=== PATIENT | male | born 1940 | race Caucasian/White ===

== ENCOUNTER → 2016-04-30 | Outpatient (CLI) | payer MEDICARE, BC | END | disposition home or self-care (01) | LOC: LABWHC1 12:26 | PROVIDERS: ATTEND Physical Medicine & Rehabilitation | DX: M54.2 Cervicalgia (principal); M47.812 Spondylosis without myelopathy or radiculopathy, cervical region; R20.2 Paresthesia of skin; M70.62 Trochanteric bursitis, left hip; M75.41 Impingement syndrome of right shoulder; G56.01 Carpal tunnel syndrome, right upper limb; G56.02 Carpal tunnel syndrome, left upper limb; M19.012 Primary osteoarthritis, left shoulder; M19.011 Primary osteoarthritis, right shoulder; R60.0 Localized edema | CPT/HCPCS: 36415; 93005 ==

== ENCOUNTER → 2016-05-28 | Outpatient (CLI) | payer MEDICARE, BC ==
--- NOTE | 2016-05-28 11:57 | XR ---
EXAMINATION TYPE: XR chest 2V DATE OF EXAM: 05/28/2016 11:45 AM HISTORY: Hypertension I10. REFERENCE: Previous study dated 05/16/2015. FINDINGS: The lungs are overinflated. Heart size is normal. The lungs are clear. There is severe dege nerative change in the right shoulder. IMPRESSION: 1. COPD. 2. DEGENERATIVE CHANGE, RIGHT SHOULDER.
[2016-05-28 12:03] LABS: Basophils # (A) 0.1 k/uL (0-0.2); Basophils % (A) 1 %; CH 30.7; CHCM 33.4; Eosinophils # (A) 0.1 k/uL (0-0.7); Eosinophils % (A) 3 %; HCT 41.6 % (39.0-53.0); HDW 2.36; HGB 13.7 gm/dL (13.0-17.5); Luc # (Auto) 0.09; Luc % (Auto) 2; Lymphocytes # (A) 0.9 k/uL (1.0-4.8); Lymphocytes % (A) 18 %; MCH 30.6 pg (25.0-35.0); MCHC 33.1 g/dL (31.0-37.0); MCV 92.5 fL (80.0-100.0); Mean Platelet Volume 7.5; Monocytes # (A) 0.3 k/uL (0-1.0); Monocytes % (A) 6 %; Neutrophils # (A) 3.8 k/uL (1.3-7.7); Neutrophils % (A) 71 %; RDW 13.1 % (11.5-15.5); WBC 5.4 k/uL (3.8-10.6); WBC (Perox) 6.32
[2016-05-28 12:14] LABS: Potassium 4.6 mmol/L (3.5-5.1)
[2016-05-28 12:17] LABS: Partial Thromboplastin Time 23.7 sec (22.0-30.0); Prothrombin Time 10.2 sec (9.0-12.0)
== END | disposition home or self-care (01) ==
LOC: LABPAT 11:20
PROVIDERS: ATTEND Orthopaedic Surgery
DX: J44.9 Chronic obstructive pulmonary disease, unspecified (principal); Z01.812 Encounter for preprocedural laboratory examination; M19.012 Primary osteoarthritis, left shoulder; I10 Essential (primary) hypertension; Z79.01 Long term (current) use of anticoagulants
CPT/HCPCS: 71020; 80051; 85025; 85610; 85730

== ENCOUNTER 2016-06-05 10:37 | Inpatient (IN) | payer MEDICARE, BC ==
[2016-05-24 11:16] VITALS: BMI 29.9
--- NOTE | 2016-06-04 15:36 | HP ---
DATE OF ADMISSION: CHIEF COMPLAINT: Left shoulder pain. 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 He is having pain with use and at night. It limits his normal function and activities. He has been taking Advil along with using a fentanyl patch. PAST MEDICAL HISTORY: Significant for COPD, depression, hypercholesterolemia, hypertension, hypothyroidism, and arthritis. PAST SURGICAL HISTORY: Significant for carpal tunnel release and cataract surgery and left total hip arthroplasty. CURRENT MEDICATIONS: 1. Albuterol. 2. Atorvastatin. 3. Fentanyl patch. 4. Duloxetine. 5. Hydrochlorothiazide. 6. Levothyroxine. 7. Metoprolol. 8. Symbicort. He denies drug allergies. FAMILY HISTORY: Significant for cancer, heart disease and lung disease. SOCIAL HISTORY: Negative for current alcohol use. Sixteen-point review of systems otherwise reviewed and is noncontributory. On examination, the patient is approximately 6 foot 2, 246 pounds of endomorphic habitus. HEENT exam is nonfocal. Neck is supple. Active motion of the left shoulder, forward elevation 90 degrees, external rotation with arm at side 60 degrees, internal rotation to L5. Passively, I am able to forward elevate him to 140 degrees. He is tender about the anterior subacromial space and glenohumeral joint. He has moderate crepitus. Motor strength is 5-/5 for abduction and external rotation. Helms, Neer tests are positive. His distal neurovascular exam appears be intact in the left upper extremity. AP, axillary lateral, and scapular Y views of the left shoulder obtained in the office show severe glenohumeral joint osteoarthrosis with maintained humeral head to acromial distance. IMPRESSION: Left severe glenohumeral joint osteoarthrosis. RECOMMENDATIONS: I talked to the patient at length regarding his treatment options. At this point he is quite symptomatic and limited because of pain related to his osteoarthrosis. After thorough discussion, he opts to proceed with surgery. We will plan to proceed with left total shoulder arthroplasty. Risks and benefits are discussed at length in layman terms. The patient underwent preoperative medical evaluation by Dr. Farrar.
[~2016-06-05 10:37] MED LIST: ACETAMINOPHEN TAB 500 MG TAB PO ONE; DEXAMETHASONE SOD PHOSPHATE 10 MG/ML 1 ML VIAL IV ONE; LIDOCAINE 1% 20 ML VIAL (10MG/ML) FOR IV START INTRADERMA PRN; MELOXICAM 7.5 MG TAB PO ONE; MIDAZOLAM 2 MG/2 ML VIAL IV PRN; SCOPOLAMINE 1.5MG/72HR PATCH TRANSDERM ONE; TRANEXAMIC ACID 1,000 MG in SODIUM CHLORIDE 0.9% 100 ML IVPB ONE; fentaNYL (PF) 50 MCG/ML 20 ML VIAL IVP PRN
[2016-06-05] MEDS: LACTATED RINGERS 1,000 ML IV SCH (11:23)
[2016-06-05] MEDS ORDERED: ONDANSETRON 4 MG/2 ML VIAL IVP ONE (11:24)
[2016-06-05] MEDS ORDERED: fentaNYL (PF) 50 MCG/ML 2 ML AMP ONE (13:12)
[2016-06-05] MEDS ORDERED: MIDAZOLAM 2 MG/2 ML VIAL ONE (13:12)
[2016-06-05] MEDS ORDERED: TRANEXAMIC ACID 1,000 MG/10 ML VIAL ONE (13:12)
[2016-06-05] MEDS ORDERED: ROCURONIUM BROMIDE 10 MG/ML 10 ML VIAL IV ONE (13:12)
[2016-06-05] MEDS ORDERED: ePHEDrine 50 MG/ML 1 ML AMP ONE (13:12)
[2016-06-05] MEDS ORDERED: NEOSTIGMINE 1 MG/ML 10 ML VIAL ONE (13:12)
[2016-06-05] MEDS ORDERED: SODIUM CHLORIDE 0.9% 100 ML BAG ONE (13:12)
[2016-06-05] MEDS ORDERED: GLYCOPYRROLATE 0.2 MG/ML 2 ML VIAL ONE (13:12)
[2016-06-05] MEDS ORDERED: PHENYLEPHRINE-0.9% NACL SYG 1 MG/10 ML SYRINGE ONE (13:12)
[2016-06-05] MEDS ORDERED: SUCCINYLCHOLINE CHLORIDE 100 MG/5 ML SYR IV ONE (13:12)
[2016-06-05] MEDS ORDERED: PROPOFOL 10 MG/ML 20 ML VIAL IV ONE (13:12)
[2016-06-05] MEDS ORDERED: LIDOCAINE 1% INJ 10MG/ML (20 ML MDV) ONE (13:12)
[2016-06-05] MEDS: ceFAZolin 2 GM in SODIUM CHLORIDE 0.9% 100 ML IVPB ONE ×2 (13:27→13:32)
[2016-06-05] MEDS ORDERED: ceFAZolin 3,000 MG in SODIUM CHLORIDE 0.9% IRRIGATIO 3,000 ML IRRIGATION ONE (13:50)
[2016-06-05] MEDS ORDERED: LACTATED RINGERS 1,000 ML IV ONE (14:01)
[2016-06-05] MEDS ORDERED: SENNOSIDES-DOCUSATE SODIUM 1 EACH TAB PO PRN (15:35)
[2016-06-05] MEDS ORDERED: ONDANSETRON 4 MG/2 ML VIAL IVP PRN (15:35)
[2016-06-05] MEDS ORDERED: METHADONE 5 MG TAB PO PRN ×2 (15:42→15:50)
[2016-06-05] MEDS ORDERED: ACETAMINOPHEN TAB 325 MG TAB PO PRN (15:44)
--- NOTE | 2016-06-05 15:58 | P.OP ---
Date of Procedure: 06/05/16 Preoperative Diagnosis: Severe left glenohumeral joint osteoarthrosis Postoperative Diagnosis: Same Procedure(s) Performed: Left total shoulder arthroplasty Implants: [employer] Unite size 12 press-fit humeral stem, 52 mm +21 eccentric humeral head, 52 mm pegged glenoid Anesthesia: PALMIRA Surgeon: Smith Hammond Senior J2Ee Developer #1: Antonio Ricketts Estimated Blood Loss (ml): 100 Pathology: other (Humeral head) Condition: stable Disposition: PACU Indications for Procedure: The patient's a 76-year-old gentleman who presents with progressive left shoulder pain secondary to osteoarthrosis despite extensive conservative measures. A discussion of the risks and benefits of operative intervention versus continued conservative measures was made with the patient. He opted to proceed with surgery. Operative risks to include infection, neurovascular injury, development of blood clots, possible component loosening, possible dislocation need for subsequent procedures was discussed. Operative Findings: As below Description of Procedure: The patient was brought to the operating room, and after induction of general anesthesia was placed into a beachchair position. Bony prominences were appropriately padded. The left upper extremity was prepped and draped in a normal fashion. A deltopectoral incision was then made extending approximately 12 cm starting lateral to the coracoid process and the deltopectoral interval. The skin was incised sharply. Subcu changed tissues were divided sharply. Electrocautery was used for hemostasis. The cephalic vein was identified and bluntly dissected and retracted along with the deltoid. Subdeltoid and subacromial adhesions were bluntly dissected. A self-retaining retractor was placed. The upper one third of the pectoralis tendon was released with electrocautery to help with exposure. The clavipectoral fascia was opened and the conjoined tendon gently retracted medially. The biceps was identified and bicipital groove opened. A tenotomy was performed allowing the distal tendon to retract. The proximal tendon was resected. The rotator interval was opened to level of the glenoid. A lesser tuberosity osteotomy is performed with a small sagittal saw. The capsule was then opened and released off the humeral head and neck. This exposed the proximal humerus. Inferior osteophytes were resected at the level of the [place] cortical bone. The shoulder was gently dislocated. A starting hole was made in line with the bicipital groove and the humeral shaft. Sequential hand reaming of the canal was performed up to size 12. There was good distal fit the resection guide was then placed planning on 30 of retroversion. I planned on resection superiorly at the level the rotator cuff insertion. The cutting guide was pinned in place and the humeral neck cut was then made. The head was removed. It sized most appropriately at 52 x 21 mm. Attention was then paid towards preparing the glenoid. A Fukuda retractor was placed posteriorly and a glenoid neck retractor anteriorly. The labrum was then released from the 6:00 to 12 o'clock position. The biceps was released from the superior labrum. I felt there was adequate noted exposure at this point. A guidepin was placed into the central portion of the glenoid . The glenoid was then reamed down to a bleeding bony surface. The central peg hole was drilled. The glenoid sized most appropriately at 52 mm. The peripheral peg holes were drilled. The trial size 52 mm glenoid was inserted and was fully seated. There was good anterior to posterior and superior to inferior fit. The trial component was removed. The bony surface was cleaned and dried. Bone graft was placed around the central peg of the final implant. The peripheral holes were pressurized with cement and excess cement was removed. The 52 mm pegged glenoid was then inserted and was fully seated. It was held in place until the cement had sufficiently hardened. Attention was then paid towards preparing the proximal humerus. The appropriate broach was inserted in 30 of retroversion and was fully seated. There was good rotational stability and overall fit. The trial 52 mm x 21 mm eccentric head was placed. The shoulder was reduced. It was taken through range of motion. I felt that was stable in flexion and extension with internal and external rotation. I felt there was adequate moravian of soft tissue tension. The shoulder was gently dislocated. The trial components were then removed. #2 Ethibond was placed for moravian of the lesser tuberosity. The final size 12 stem was inserted in the same retroversion and was fully seated. Again there was good rotational stability. The eccentric 52 x 21 mm humeral head was placed and was gently impacted. The shoulder was gently reduced. Again it was taken through range of motion felt to be stable with adequate moravian of soft tissue tension. Pulsatile lavage was utilized. The rotator interval was closed with #2 Ethibond suture. The lesser tuberosity was reattached with the previously placed #2 Ethibond suture. The deltopectoral interval was closed with interrupted 2-0 Vicryl sutures and the subcutaneous tissues reapproximated interrupted 2-0 Vicryl sutures. The skin was reapproximated with 3-0 subcuticular strata fix suture. Skin tape and adhesive was applied. The patient was then awoken from general anesthesia and transferred to the recovery room in good condition. Blood loss was estimated at 100 mL's. No complications were incurred. Sponge and needle counts were correct at the end the case.
[2016-06-05] MEDS: HYDROmorphone 1 MG/ML 1 ML SYRINGE IVP PRN ×5 (16:00→16:21)
--- NOTE | 2016-06-05 16:18 | XR ---
EXAMINATION TYPE: XR shoulder limited LT DATE OF EXAM: 06/05/2016 4:08 PM COMPARISON: 12/27/2015 HISTORY: 76-year-old male postoperative evaluation TECHNIQUE: Single portable Grashey view FINDINGS: Image demonstrates left total shoulder arthroplasty. Alignment appears grossly anatomic. No periprost hetic fracture identified. There is soft tissue and intra-articular air related to recent operation. IMPRESSION: Uncomplicated postoperative appearance left total shoulder arthroplasty.
[2016-06-05] MEDS ORDERED: KETOROLAC 30 MG/ML 1 ML VIAL IVP ONE (16:26)
[2016-06-05] MEDS ORDERED: ACETAMINOPHEN IV (For NPO) 1,000 MG/100 ML VIAL IVPB ONE (16:32)
[2016-06-05] MEDS: HYDROmorphone 1 MG/ML 1 ML SYRINGE IVP ONE ×2 (16:43→16:49)
[2016-06-05] MEDS: ceFAZolin 2 GM in SODIUM CHLORIDE 0.9% 100 ML IVPB SCH (17:26)
[2016-06-05] MEDS: METHADONE 5 MG TAB PO PRN (21:58)
[2016-06-06] MEDS: ceFAZolin 2 GM in SODIUM CHLORIDE 0.9% 100 ML IVPB SCH (00:03)
[2016-06-06] MEDS: LACTATED RINGERS 1,000 ML IV SCH (02:44)
[2016-06-06] MEDS: METHADONE 5 MG TAB PO PRN (05:45)
[2016-06-06 08:10] LABS: Basophils % (A) 0 %; CH 30.8; CHCM 34.3; Eosinophils % (A) 0 %; HDW 2.35; HGB 11.6 gm/dL (13.0-17.5); Luc % (Auto) 1; Lymphocytes # (A) 1.1 k/uL (1.0-4.8); Lymphocytes % (A) 14 %; MCH 30.8 pg (25.0-35.0); MCHC 34.1 g/dL (31.0-37.0); MCV 90.3 fL (80.0-100.0); Mean Platelet Volume 6.9; Monocytes # (A) 0.6 k/uL (0-1.0); Monocytes % (A) 8 %; Neutrophils # (A) 6.4 k/uL (1.3-7.7); Neutrophils % (A) 77 %; RBC 3.76 m/uL (4.30-5.90); RDW 13.4 % (11.5-15.5); WBC 8.3 k/uL (3.8-10.6); WBC (Perox) 8.95
[2016-06-06 08:57] VITALS: BP 116/72; PULSE 70; RESP 15; TEMP 98
[2016-06-06] MEDS ORDERED: RIVAROXABAN 10 MG TAB PO SCH (09:00)
[2016-06-06] MEDS ORDERED: METHADONE 5 MG TAB PO SCH (13:00)
--- NOTE | 2016-06-06 14:36 | P.PN ---
Subjective Principal diagnosis: Status post left total shoulder arthroplasty Patient is seen today resting in his hospital bed, his family is present at bedside. Patient's very comfortable at this point, his pain is well- controlled. He denies any headaches, lightheadedness, chest pain or shortness of breath. Objective - Vital Signs Vital signs: Vital Signs Temp 98 F 06/06/16 07:00 Pulse 70 06/06/16 07:00 Resp 15 06/06/16 07:00 BP 116/72 06/06/16 07:00 Pulse Ox 99 06/06/16 07:00 Intake & Output 06/05/16 06/06/16 06/06/16 18:59 06:59 18:59 Intake Total 2151 1000 700 Output Total 400 200 300 Balance 1751 800 400 Weight 105.687 kg Intake: IV 2151 Intake, IV Titration 1000 Amount Lactated Ringers 1,000 ml 400 @ 50 mls/hr IV .Q20H [facility] Rx#:[id number] ceFAZolin 2 gm In Sodium 400 Chloride 0.9% 100 ml @ 100 mls/hr IVPB ONCE ONE Rx#:[id number] ceFAZolin 2 gm In Sodium 200 Chloride 0.9% 100 ml @ 100 mls/hr IVPB Q8HR [facility] Rx#:[id number] Oral 700 Output: Urine 300 200 300 Uretheral (Rogers) 200 300 Estimated Blood Loss 100 Other: Voiding Method Indwelling Catheter Indwelling Catheter - Exam Left upper extremity: Incision is clean, dry and intact. Sensory exam to light touch throughout the upper extremities intact. Patient is able to extend and flex the wrist with no difficulty. He also has motion the elbow. Radial pulses 2+. - Labs CBC & Chem 7: 06/06/16 07:33 Labs: Abnormal Lab Results - Last 24 Hours (Table) 06/06/16 Range/Units 07:33 RBC 3.76 L (4.30-5.90) m/uL Hgb 11.6 L (13.0-17.5) gm/dL Hct 34.0 L (39.0-53.0) % Assessment and Plan Plan: Assessment: 1. Postop day #1 status post left total shoulder arthroplasty Plan: 1. Pain control, will resume his home methadone 2. GI and DVT prophylaxis, he will utilize aspirin 325 mg twice a day 3. Daily dressing changes/ice and elevate 4. Utilize arm sling 5. Pendular exercises daily 6. Medical recommendations 7. Discharge planning: Patient will be discharged home today Time with Patient: Less than 30
--- NOTE | 2016-06-06 14:38 | P.DS ---
Providers Date of admission: 06/05/16 10:37 Expected date of discharge: 06/06/16 Attending physician: Smith Hammond Consults: 06/05/16 15:40 Consult Physician Routine Consulting Provider: Lora Steel Consult Reason/Comments: Medical Management Do you want consulting provider notified?: Yes [facility] Course: Date of admission: 06/05/2016 Date of discharge: 06/06/2016 Admission diagnosis: Status post left total shoulder arthroplasty Discharge diagnosis: Same Attending physician: Dr. Hammond Surgical procedures: Left total shoulder arthroplasty Brief history: Patient is a 76-year-old male with a history of progressive primary left shoulder osteoarthritis. At this point patient has failed conservative treatment measures and has opted to proceed with a elective left total shoulder arthroplasty. Hospital course: Details of patient's surgery can be found in operative report. Patient tolerated the procedure well and was subsequently transported to orthopedic floor. Patient's orthopeidc and medical care was provided daily. Patient had daily laboratory tests performed for evaluation of overall blood counts. Patient had daily physical therapy to include strengthening range of motion as well as education with walker ambulation. Patient was treated with Xarelto for their postoperative DVT prophylaxis during their inpatient stay. Patient was noted to have a relatively uneventful postoperative course. Patient reported satisfactory pain control with oral pain medications by postoperative day 0. Patient showed satisfactory progress with physical therapy. Patient moved steadily through the program and had no difficulty meeting the goals by postoperative day 1. Given patient's otherwise satisfactory course and having met physical therapy goals, plan is to discharge patient home on postoperative day 1. Discharge condition/disposition: Patient will be discharged home in stable condition. Discharge medications: Instructions are given on resumption of patient's normal daily medications per primary care recommendation, in addition patient will be prescribed Pepcid 20 mg, Colace 100 mg, aspirin 325 mg. Discharge instructions: 1. Wound care and infection precautions, keep incision dry and covered while showering, no lotions, creams, moisturizers. No soaking, tubs, pools, hottubs. Do not scrub over the incision. 2. Utilize arm sling for left upper extremity 3. Ice and elevate when necessary. Do not exceed 20 minutes per hour with ice pack. 4. Utilize compression sleeve until seen at first follow up appointment. 5. Visiting nursing care. 6. Home physical therapy. 7. Pain meds and anticoagulants per prescription. 8. Pain medication has potential to cause constipation. Increase oral fluid and fiber intake. Contact primary care provider if you have not had a bowel movement within 48 hours after discharge 9. No anti-inflammatory medication until discussed at first post operative visit, this including Motrin, Aleve, Mobic, Diclofenac. 10. Follow up in office at 2 weeks postop with Keo Ricketts PA-C 11. Follow up with your primary care doctor 7-10 days after discharge. 12. Contact [facility] with any questions, . Procedures: Left total shoulder arthroplasty Patient Condition at Discharge: Good Plan - Discharge Summary New Discharge Prescriptions: Aspirin 325 mg PO BID #60 tab Docusate [Colace] 100 mg PO DAILY #30 capsule Famotidine [Pepcid] 20 mg PO DAILY #30 tablet Discharge Medication List Albuterol Sulfate [Proair Hfa] 1 - 2 puff INHALATION RT-Q6H PRN 05/03/15 [ History] Atorvastatin [Lipitor] 10 mg PO HS 05/03/15 [History] Budesonide/Formoterol Fumarate [Symbicort 160-4.5 Mcg Inhaler] 1 puff INHALATION RT-BID 05/03/15 [History] Hydrochlorothiazide [Hydrodiuril] 25 mg PO DAILY 05/03/15 [History] Ipratropium-Albuterol Nebulize [Duoneb 0.5 mg-3 mg/3 ml Soln] 3 ml INHALATION RT -BID 05/03/15 [History] Levothyroxine Sodium [Synthroid] 175 mcg PO QAM 05/03/15 [History] Metoprolol Tartrate [Lopressor] 25 mg PO QAM 05/03/15 [History] Tamsulosin HCl [Flomax] 0.4 mg PO HS 05/03/15 [History] DULoxetine HCL [Cymbalta] 60 mg PO BID 05/24/16 [History] Finasteride [Proscar] 5 mg PO HS 05/24/16 [History] Methadone [Dolophine] 7.5 mg PO Q8HR 05/24/16 [History] Moexipril HCl [Univasc] 15 mg PO QAM 05/24/16 [History] Multivitamin [Men's Multi-Vitamin] 1 tab PO DAILY 05/24/16 [History] Naloxone HCl [Narcan] 4 mg NASAL DIRECTED PRN 05/24/16 [History] Polyethylene Glycol 3350 [Miralax] 17 gm PO DAILY 05/24/16 [History] Turmeric Root Extract [Turmeric] 500 mg PO DAILY 06/05/16 [History] Aspirin 325 mg PO BID #60 tab 06/06/16 [Rx] Docusate [Colace] 100 mg PO DAILY #30 capsule 06/06/16 [Rx] Famotidine [Pepcid] 20 mg PO DAILY #30 tablet 06/06/16 [Rx] Follow up Appointment(s)/Referral(s): [facility], [NON-STAFF] - Antonio Ricketts PAC [PHYSICIAN RESIN REMOVER] - 06/20/16 2:10 pm Activity/Diet/Wound Care/Special Instructions: Orthopedic Discharge Instructions: 1. Wound care and infection precautions, keep incision dry and covered while showering, no lotions, creams, moisturizers. No soaking, pools, hot tubs. Do not scrub over incision. 2. Utilize arm sling for left upper extremity 3. Ice and elevate when necessary. Do not exceed 20 minutes per hour with ice pack. 4. Utilize compression sleeve until seen at first follow up appointment. 5. Visiting nursing care. 6. Home physical therapy. 7. Pain meds and anticoagulants per prescription. 8. Pain medication has potential to cause constipation. Increase oral fluid and fiber intake. Contact primary care provider if you have not had a bowel movement within 48 hours after discharge. 9. No anti-inflammatory medication until discussed at first post operative visit, this including Motrin, Aleve, Mobic, Diclofenac. 10. Follow up in office at 2 weeks postop with Keo Ricketts PA-C 11. Follow up with your primary care doctor 7-10 days after discharge. 12. Contact [facility] with any questions, . Discharge Disposition: HOME WITH HOME HEALTH SERVICES
--- NOTE | 2016-06-06 21:07 | CONS ---
DATE OF CONSULTATION: REASON FOR CONSULTATION: Management of recommendations regarding antihypertensive medications. Recommendations regarding antihypertensive medications and management of other medical problems postoperative complications. Patient is a 76-year-old admitted for a left shoulder arthroplasty, patient successfully underwent surgery. The patient successfully underwent left shoulder arthroplasty. The patient denied any fever or chills. Patient denied any nausea, vomiting, abdominal pain. Patient's blood pressure was a bit low. This is normal expected postoperative response of the blood pressure. I do not have enough time to see if he is on the appropriate blood pressure medications or not. Because of that reason, I am recommending that patient should check his blood pressure twice a day, appropriate way of checking the blood pressure counseled to the patient and taken to the primary doctor, I am not changing any of his medications. ROS: all other systems were reviewed and are negative. Home medications include: 1. Tamsulosin. 2. Polyethylene glycol. 3. ( ). 4. ( ). 5. Metoprolol. 6. Methadone. 7. Levothyroxine. 8. Hydrochlorothiazide. 9. Finasteride. 10. Duloxetine. 11. Budesonide. 12. Formoterol. 13. Atorvastatin. 14. Albuterol. 15. Famotidine. 16. Docusate. 17. Aspirin. PAST MEDICAL HISTORY: Significant for COPD, hyperlipidemia, hypertension, osteoarthritis, prostate disorder, hypothyroidism, Appendectomy. Joint replacement surgery. Tonsillectomy, anxiety. Depression. SOCIAL HISTORY: Quit smoking in 2010. Denied any alcohol abuse or drug abuse. FAMILY HISTORY: Congestive heart failure, diabetes mellitus and lung cancer. PHYSICAL EXAMINATION: VITAL SIGNS: Temperature 98.0, pulse of 70, respiratory rate 15. Blood pressure is 116/72, saturating at 99% on 2 L O2 by nasal cannula. GENERAL: The patient is alert and oriented x3, not in any acute distress. Well developed, well nourished. HEENT: Pupils are round and equally reacting to light. EOMI. No scleral icterus. No conjunctival pallor. Normocephalic, atraumatic. No pharyngeal erythema. No thyromegaly. CARDIOVASCULAR: S1 and S2 present. No murmurs, rubs, or gallops. PULMONARY: Chest is clear to auscultation, no wheezing or crackles. ABDOMEN: Soft, nontender, nondistended, normoactive bowel sounds. No palpable organomegaly. MUSCULOSKELETAL: Left shoulder arthroplasty, postsurgical packed. EXTREMITIES: No cyanosis, clubbing, or pedal edema. NEUROLOGICAL: Gross neurological examination did not reveal any focal deficits. SKIN: No rashes. LABORATORY DATA: CBC hemoglobin of 11.6. ASSESSMENT AND PLAN: 1. Postoperative day 0, left shoulder arthroplasty. 2. Hypertension. 3. Hyperlipidemia. 4. Chronic obstructive pulmonary disease without any acute exacerbation. Will not need any systemic steroids. 5. Gastroesophageal reflux disease. 6. Osteoarthritis. 7. Hypothyroidism. No changes are made in medications are being made. Discharge medication reconciliation was reviewed. Patient is okay to be discharged from my perspective. No changes. Because of above-mentioned reasons, I am not making any changes. Thank you for letting us participate in this patient's care. We will sign off at this point in time. CK
== END 2016-06-06 16:05 | disposition home health service (06) | DRG 483 ==
LOC: 2ORMAIN 10:37 → 3SUR 15:38
PROVIDERS: ADMIT Orthopaedic Surgery; ATTEND Orthopaedic Surgery
PROC: 0RRK0JZ Replacement of Left Shoulder Joint with Synthetic Substitute, Open Approach (ICD-10-PCS; principal; 2016-06-05 12:50)
DX: M19.012 Primary osteoarthritis, left shoulder (principal); J44.9 Chronic obstructive pulmonary disease, unspecified; I10 Essential (primary) hypertension; E03.9 Hypothyroidism, unspecified; E78.00 Pure hypercholesterolemia, unspecified; E78.5 Hyperlipidemia, unspecified; K21.9 Gastro-esophageal reflux disease without esophagitis; Z82.49 Family history of ischemic heart disease and other diseases of the circulatory system; Z87.891 Personal history of nicotine dependence; Z96.642 Presence of left artificial hip joint; Z83.3 Family history of diabetes mellitus; F41.9 Anxiety disorder, unspecified; F32.9 Major depressive disorder, single episode, unspecified; Z79.82 Long term (current) use of aspirin; Z79.891 Long term (current) use of opiate analgesic; Z79.899 Other long term (current) drug therapy; N42.9 Disorder of prostate, unspecified
CPT/HCPCS: 85025; 88305; 88311

== ENCOUNTER → 2017-01-11 | Outpatient (CLI) | payer MEDICARE, BC | END | disposition home or self-care (01) | LOC: LABPAT 12:54 | PROVIDERS: ATTEND Orthopaedic Surgery | DX: Z01.812 Encounter for preprocedural laboratory examination (principal) | CPT/HCPCS: 87070 ==

== ENCOUNTER 2017-01-22 08:00 | Inpatient (IN) | payer MEDICARE, BC ==
--- NOTE | 2017-01-21 09:55 | HP ---
HISTORY AND PHYSICAL CHIEF COMPLAINT: Right shoulder pain. HISTORY OF PRESENT ILLNESS: The patient is a 76-year-old, right-hand dominant, retired male who presents with progressive right shoulder pain for the past several years. It has worsened recently. He is having pain with any attempted use. He notes limited motion. He had a previous injection with only partial temporary relief. PAST MEDICAL HISTORY: Significant for arthritis, COPD, depression, hypercholesterolemia, hypertension, and hypothyroidism. PAST SURGICAL HISTORY: Significant for carpal tunnel surgery, cataract removal, previous hip surgery, tonsillectomy, and left total shoulder arthroplasty. CURRENT MEDICATIONS: 1. Albuterol. 2. Fentanyl patch. 3. Atorvastatin. 4. Hydrochlorothiazide. 5. Levothyroxine. 6. Metoprolol. 7. Symbicort. ALLERGIES: He denies drug allergies. FAMILY HISTORY: Significant for cancer, heart disease, hypertension. SOCIAL HISTORY: Significant for previous tobacco use. REVIEW OF SYSTEMS: Sixteen point review of systems otherwise reviewed and is noncontributory. PHYSICAL EXAMINATION: On examination, the patient is approximately 6 feet 2 inches, 240 pounds of endomorphic habitus. HEENT exam is nonfocal. Neck is supple. Active range of motion of the right shoulder. Forward elevation 105 degrees, external rotation with arm to side 50 degrees and internal rotation to L4. Motor strength is 5/5 for abduction and external rotation. Impingement, Neer and Speed tests are positive. His distal neurovascular exam appears intact in the right upper extremity. X-rays to include AP and scapular outlet views of the right shoulder show severe glenohumeral joint osteoarthrosis with maintained humeral head to acromial distance. IMPRESSION: 1. Right severe glenohumeral joint osteoarthritis. 2. History of chronic obstructive pulmonary disease. RECOMMENDATIONS: I talked to the patient at length regarding his treatment options. At this point, he is having persistent significant pain related to his osteoarthrosis that limits him. After thorough discussion, he opts to proceed with surgery. We will plan to proceed with right total shoulder arthroplasty. Risks and benefits were discussed at length in layman's terms. We will institute DVT prophylaxis postoperatively. MMODL / IJN: [id number] /
[~2017-01-22 08:00] MED LIST changes: -LIDOCAINE 1% 20 ML VIAL (10MG/ML) FOR IV START INTRADERMA PRN; +ONDANSETRON 4 MG/2 ML VIAL IVP ONE; -SCOPOLAMINE 1.5MG/72HR PATCH TRANSDERM ONE; +ceFAZolin IN SWFI 2 GM/20 ML SYRINGE IVP ONE; -fentaNYL (PF) 50 MCG/ML 20 ML VIAL IVP PRN
[2017-01-22] MEDS: LACTATED RINGERS 1,000 ML IV SCH ×3 (11:42→19:22)
[2017-01-22] MEDS ORDERED: LIDOCAINE 1% 20 ML VIAL (10MG/ML) FOR IV START INTRADERMA ONE (11:44)
[2017-01-22] MEDS ORDERED: ceFAZolin 3,000 MG in SODIUM CHLORIDE 0.9% IRRIGATIO 3,000 ML IRRIGATION ONE (14:03)
[2017-01-22] MEDS ORDERED: LACTATED RINGERS 1,000 ML IV ONE (15:14)
[2017-01-22] MEDS ORDERED: ONDANSETRON 4 MG/2 ML VIAL IVP PRN (15:22)
[2017-01-22] MEDS ORDERED: SENNOSIDES-DOCUSATE SODIUM 1 EACH TAB PO PRN (15:22)
[2017-01-22] MEDS ORDERED: HYDROmorphone 0.5 MG/0.5 ML SYRINGE IVP PRN ×2 (15:22)
[2017-01-22] MEDS ORDERED: METHADONE 5 MG TAB PO PRN ×2 (15:31)
--- NOTE | 2017-01-22 15:46 | P.OP ---
Date of Procedure: 01/22/17 Preoperative Diagnosis: Right severe glenoid joint osteoarthrosis Postoperative Diagnosis: Same Procedure(s) Performed: Right total shoulder arthroplasty Implants: [employer] size 12 press-fit humeral stem, 52 mm +18 eccentric humeral head, 52 mm pegged cemented glenoid component. Anesthesia: JERSONA Surgeon: Smith Hammond Sketch Artist #1: Antonio Ricketts Estimated Blood Loss (ml): 350 Pathology: other (Humeral head) Condition: stable Disposition: PACU Indications for Procedure: The patient's 76-year-old male who presents with progressive right shoulder pain secondary to osteoarthrosis despite extensive conservative measures. A discussion of the risks and benefits of operative intervention versus continued conservative measures was made with the patient. He opted to proceed with surgery. Operative risks to include infection, neurovascular injury, development of blood clots, possible dislocation, possible component loosening and need for subsequent procedures was discussed. Informed consent was obtained. Operative Findings: As below Description of Procedure: The patient was brought to the operating room, and after induction of general anesthesia was placed in the beachchair position. Bony prominences were appropriately padded. The right upper extremity was prepped and draped in normal fashion. A deltopectoral incision was made just lateral to the coracoid process extending approximately 12 cm. The skin was incised sharply. Subcu tissues were divided bluntly. Electrocautery was used for hemostasis. The deltopectoral interval was identified and the cephalic vein gently retracted laterally with the deltoid. Subdeltoid adhesions were bluntly dissected. A self-retaining retractor was placed. The upper one third of the pectoralis major tendon was released to help facilitate exposure. The clavipectoral fascia was opened and the conjoined tendon gently retracted medially. The bicipital groove was identified and biceps was then removed. The rotator interval was opened to the level the glenoid. The biceps was tenotomized and allowed to retract distally. The lesser tuberosity was osteotomized with a sagittal. This was tagged with #2 Ethibond suture. The inferior capsule was dissected directly off the neck under direct visualization sharply. The inferior osteophyte was exposed and removed with a rongeur. The head was then gently dislocated. A starting hole was made in line with the humeral shaft and the bicipital groove. Hand reaming is then performed up to a size 12 concrete handler. Good distal fit and chatter was noted. The cutting guide was then placed. Upon at 30 of retroversion. I planned on resection exiting superiorly at the level of the rotator cuff insertion. The cutting block was pinned in place. The humeral head cut was made and the bone removed one fragment. The remaining inferior osteophytes were removed flush with the united auburn cortical bone. Attention was then paid towards preparing the glenoid. A retractor was placed posteriorly and anteriorly. The labral tissue was released from the 12:00 to 6 o'clock position anteriorly. The remaining biceps was removed from the superior labrum. The posterior labrum was elevated as well. I was able to obtain good exposure at this point. I felt size 52 was most appropriate. A guidepin was placed in the central portion of the glenoid. A 52 mm reamer was used taking this down to a bleeding bony surface. A central peg hole was drilled. The peripheral peg holes were then drilled with the appropriate guide. There was good bony containment. A trial size 52 mm glenoid was placed and was fully seated. There is good anterior to posterior and superior to inferior fit. The trial component was removed. The bony surface was prepared with pulsatile lavage and dried. The peripheral peg holes were filled with cement and pressurized. Excess cement was removed. The central peg hole was bone grafted and the implant inserted and impacted. This was held in position until the cement had sufficiently hardened. Attention was then paid towards preparing the proximal humerus. The appropriate broach was placed in 30 of retroversion and was fully seated. The trial component was inserted in the same orientation and was fully seated. There was good rotational stability. A 52 mm +18 eccentric trial head was placed in the appropriate orientation. The shoulder was gently reduced. It was taken through range of motion. I good stability in flexion and extension with internal and external rotation. There was good stability anterior to posterior as well. The shoulder was gently dislocated. The trial components were removed. A #2 Ethibond sutures placed laterally for reattachment of the lesser tuberosity. The final size 12 press-fit humeral stem was inserted in 30 of retroversion and was fully seated. Again there was good rotational stability. A 52 mm +18 humeral head was placed in the appropriate orientation and was gently impacted. The shoulder was gently reduced. Again it was taken through range of motion and felt to be stable in flexion and extension with internal and external rotation. Again there was adequate buddhism of soft tissue tension. Pulsatile lavage was again utilized. The lesser tuberosity was reattached to its united auburn position with #2 Ethibond suture. The rotator interval was closed with running #2 Ethibond suture. The deltopectoral interval was closed with interrupted 2-0 Vicryl sutures. The subcu tissues reapproximated in a similar fashion. The skin was reapproximated with 3-0 subcuticular Prolene suture. Steri-Strips were applied. A sterile dressing was applied in addition to a sling. Patient was awoken from general anesthesia and transferred to recovery room in good condition. Blood loss was estimated at 350 mL. No complications were incurred. Sponge and needle counts were correct at the end the case.
[2017-01-22] MEDS: HYDROmorphone 0.5 MG/0.5 ML SYRINGE IVP PRN ×4 (16:06→16:28)
--- NOTE | 2017-01-22 16:17 | XR ---
Right shoulder HISTORY: Postop shoulder arthroplasty Single frontal view of the right shoulder. Patient is status post right shoulder arthroplasty. There is anatomic alignment. Lucency in the soft tissues compatible with postop state. Small ossific densit y noted along the proximal right humerus medially, surgical likely is postoperative. IMPRESSION: Orthopedic follow-up.
[2017-01-22] MEDS ORDERED: MIDAZOLAM 2 MG/2 ML VIAL IV ONE (16:56)
[2017-01-22 17:09] VITALS: RESP 16
[2017-01-22 19:40] VITALS: BMI 28.8
[2017-01-22] MEDS: SYMBICORT 160-4.5 MCG INHALER INHALATION SCH (20:55)
[2017-01-22] MEDS: IPRATROPIUM-ALBUTEROL 3 ML NEB INHALATION SCH (20:56)
[2017-01-22] MEDS ORDERED: TAMSULOSIN 0.4 MG CAP.ER.24H PO SCH (21:00)
[2017-01-22] MEDS ORDERED: ATORVASTATIN 10 MG TAB PO SCH (21:00)
[2017-01-22] MEDS ORDERED: FINASTERIDE 5 MG TAB PO SCH (21:00)
--- NOTE | 2017-01-22 21:25 | CONS ---
CONSULTATION DATE OF CONSULTATION: January 22, 2017 REASON FOR CONSULTATION: Medical management requested by Dr. Hammond. CONSULTATION: Very pleasant 76-year-old patient of Dr. Farrar who has undergone right shoulder arthroplasty. Some pain is present. No nausea or vomiting. No chest pain. is at the bedside. Chronic stable medical conditions include COPD, hypertension, hyperlipidemia. On home oxygen 2 L. Patient does follow up for his pain with Dr. Cooley from [facility]. Patient also chronic stable medical conditions include BPH and hypothyroid. Denies any cardiac history. REVIEW OF SYSTEMS: CONSTITUTIONAL: None. HEENT none. Respiratory baseline some shortness of breath. Cardiovascular none. Gastrointestinal none. Genitourinary none. Musculoskeletal: Arthritic pain in different joints. Dermatological and hematologic, lymphatic none. Psychiatry none. Neurological none. Musculoskeletal also got pain in the lower back. PAST MEDICAL HISTORY: Of COPD, hypertension, hyperlipidemia, osteoarthritis including the lower back, chronic home oxygen 2 L, BPH, hypothyroid. PAST SURGICAL HISTORY: Adenoidectomy, appendectomy, total left shoulder, total left hip, bilateral carpal tunnel, bilateral cataract. Past psych history of depression, anxiety. SOCIAL HISTORY: The patient smoked about 50 cigars a week with pipe for close to 40 years, stopped in 2010, Alcohol none. . FAMILY HISTORY: Congestive heart failure and diabetes. HOME MEDICATIONS: Turmeric 5 mg p.o. daily, Flomax 0.4 mg p.o. q.h.s., MiraLAX 17 g p.o. daily, Narcan 4 mg, p.r.n. medications multivitamin 1 tab p.o. daily. Univasc 15 mg p.o. daily Lopressor 25 mg p.o. daily. Methadone 7.5 mg at 7:00 am 3:00 pm 11:00 pm, Synthroid 175 mcg p.o. daily DuoNeb b.i.d., hydrochlorothiazide 12.5 p.o. daily, Proscar 5 mg p.o. q.h.s., Colace 100 mg p.o. daily, Cymbalta 60 mg p.o. b.i.d. Symbicort 160/4.5, 1 puff b.i.d. Lipitor 100 mg q.h.s. ProAir 1-2 puffs q.6h p.r.n. ALLERGIES: None. PHYSICAL EXAMINATION: Vital signs on exam, temperature 98.3, pulse 89, respiratory rate 12, blood pressure 140/60, pulse 98% on 2 L. General appearance sitting up comfortable. Eyes pupils are equal. Conjunctivae normal. HEENT: Oral cavity normal. Neck JVD not raised. Mass not palpable. Respiratory effort normal. Lungs decreased breath sounds. Cardiovascular first and second sounds normal. No edema. ABDOMEN: Soft, nontender. Liver and spleen not palpable. Lymphatic no lymph nodes palpable in neck. Psychiatry alert and oriented times three. Mood and affect normal. Musculoskeletal has got a dressing of the right shoulder. Evidence of osteoarthritis especially in the hands. INVESTIGATIONS: None. ASSESSMENT: 1. Right shoulder total arthroplasty. 2. Chronic obstructive pulmonary disease in an ex-smoker. 3. Essential hypertension. 4. Hyperlipidemia. 5. Primary osteoarthritis of the joints. 6. Chronic hypoxic respiratory failure underlying chronic obstructive pulmonary disease. 7. Benign prostatic hypertrophy. 8. Hypothyroidism. PLAN: Home medications are resumed. Pain control per Dr. Hammond. Patient's home dose of methadone will be resumed as he takes it. This was discussed with the patient and . Questions were answered. Venodyne boots for DVT, Antiembolism hose for DVT prophylaxis. Pneumatic compression. Care was discussed the patient with . Questions were answered. Thank you Dr. Hammond. Copy dictation to Dr. Farrar. MAY / JESSICA: [id number] /
[2017-01-22] MEDS: LEVOTHYROXINE 100 MCG TAB PO SCH (21:50)
[2017-01-22] MEDS: LEVOTHYROXINE 75 MCG TAB PO SCH (21:50)
[2017-01-22] MEDS: METOPROLOL TARTRATE 25 MG TAB PO SCH (21:50)
[2017-01-22] MEDS: METHADONE 5 MG TAB PO SCH (22:23)
[2017-01-22] MEDS: ceFAZolin IN SWFI 2 GM/20 ML SYRINGE IVP SCH (22:23)
[2017-01-22] MEDS: DULoxetine HCL 60 MG CAPSULE.DR PO SCH (22:23)
[2017-01-23] MEDS: LEVOTHYROXINE 100 MCG TAB PO SCH (06:09)
[2017-01-23] MEDS: LEVOTHYROXINE 75 MCG TAB PO SCH (06:09)
[2017-01-23] MEDS: ceFAZolin IN SWFI 2 GM/20 ML SYRINGE IVP SCH (06:34)
[2017-01-23 07:17] LABS: Basophils % (A) 0 %; CHCM 32.9; Eosinophils % (A) 0 %; HCT 34.7 % (39.0-53.0); HDW 2.35; HGB 11.2 gm/dL (13.0-17.5); Luc # (Auto) 0.13; Luc % (Auto) 2; Lymphocytes # (A) 1.1 k/uL (1.0-4.8); Lymphocytes % (A) 15 %; MCH 29.5 pg (25.0-35.0); MCHC 32.2 g/dL (31.0-37.0); MCV 91.5 fL (80.0-100.0); Mean Platelet Volume 7.2; Monocytes # (A) 0.5 k/uL (0-1.0); Monocytes % (A) 6 %; Neutrophils # (A) 5.6 k/uL (1.3-7.7); Neutrophils % (A) 76 %; RBC 3.79 m/uL (4.30-5.90); WBC 7.4 k/uL (3.8-10.6); WBC (Perox) 7.53
[2017-01-23] MEDS: METHADONE 5 MG TAB PO SCH (07:19)
[2017-01-23] MEDS: SYMBICORT 160-4.5 MCG INHALER INHALATION SCH (08:20)
[2017-01-23] MEDS: IPRATROPIUM-ALBUTEROL 3 ML NEB INHALATION SCH (08:20)
[2017-01-23] MEDS ORDERED: TAMSULOSIN 0.4 MG CAP.ER.24H PO SCH (08:30)
--- NOTE | 2017-01-23 08:38 | P.ONQ ---
Anesthesiology Proc Note - PNB - Peripheral Nerve Block Performed Right Interscalene Single Time Out Performed: Yes Procedure Start Time: 17:49 Procedure Stop Time: 17:55 Indication: Acute Post-Operative Pain, Requested by physician Sedation Type: Sedate with meaningful contact maintained Preparation: Sterile Prep Needle Size: 50mm (2") Needle Gauge: 21 Technique: Ultrasound (ropi .5% 20cc and xylo 2% 15cc) Blood Aspirated: No Pain Paresthesia on Injection Noted: No Resistance on Injection: Normal Events: Uneventful and Well Tolerated
[2017-01-23] MEDS ORDERED: HYDROCHLOROTHIAZIDE 12.5 MG CAP PO SCH (09:00)
[2017-01-23] MEDS ORDERED: FINASTERIDE 5 MG TAB PO SCH (09:00)
[2017-01-23] MEDS ORDERED: LISINOPRIL 20 MG TAB PO SCH (09:00)
[2017-01-23] MEDS ORDERED: POLYETHYLENE GLYCOL 3350 17 GM POWD.PACK PO SCH (09:00)
[2017-01-23] MEDS ORDERED: ATORVASTATIN 10 MG TAB PO SCH (09:00)
[2017-01-23] MEDS ORDERED: traMADol 50 MG TAB PO PRN (09:47)
[2017-01-23] MEDS: DULoxetine HCL 60 MG CAPSULE.DR PO SCH (10:45)
[2017-01-23] MEDS: METOPROLOL TARTRATE 25 MG TAB PO SCH (10:46)
--- NOTE | 2017-01-23 11:45 | P.PN ---
Subjective Progress Note Date: 01/23/17 Principal diagnosis: Status post right total shoulder arthroplasty Patient seen today resting in his hospital bed, he appears comfortable. He he denies any headaches, lightheadedness, chest pain or shortness of breath. Objective - Vital Signs Vital signs: Vital Signs Temp 98.4 F 01/23/17 08:00 Pulse 80 01/23/17 08:31 Resp 16 01/23/17 08:00 BP 124/58 01/23/17 08:00 Pulse Ox 98 01/23/17 08:00 Intake & Output 01/22/17 01/23/17 01/23/17 18:59 06:59 18:59 Intake Total 2256 440 150 Output Total 550 600 300 Balance 1706 -160 -150 Weight 101.605 kg Intake: IV 2006 440 LR 440 Oral 250 150 Output: Urine 200 600 300 Uretheral (Rogers) 600 300 Estimated Blood Loss 350 Other: Voiding Method Indwelling Catheter - Exam Right upper extremity: Incision is clean, dry, and intact. There is minimal soft tissue swelling and ecchymosis surrounding the medial and lateral aspects of the incision. Calf is soft, no tenderness with palpation. Patient's able to wiggle all the fingers, flexion and extension at the wrist are intact.. Sensory exam to light touch throughout the extremity is intact, radial pulses 2+ - Labs CBC & Chem 7: 01/23/17 06:46 Labs: Abnormal Lab Results - Last 24 Hours (Table) 01/23/17 Range/Units 06:46 RBC 3.79 L (4.30-5.90) m/uL Hgb 11.2 L (13.0-17.5) gm/dL Hct 34.7 L (39.0-53.0) % Assessment and Plan Plan: Assessment: 1. Postop day 1 status post right total shoulder arthroplasty Plan: 1. Pain control, continue supportive oral medication 2. Utilize arm sling, and pendular exercises 3. GI and DVT prophylaxis, continue Lovenox during inpatient stay 4. Medical recommendations 5. Discharge planning: Patient may be discharged home today Time with Patient: Less than 30
[2017-01-23 15:28] VITALS: BP 124/58; PULSE 79; TEMP 98.4
--- NOTE | 2017-01-23 18:08 | PN ---
PROGRESS NOTE PRESENTING COMPLAINT: Right shoulder surgery. INTERVAL HISTORY: The patient is status post right shoulder surgery. Some pain is present. Breathing is stable. Sitting up, comfortable. Tolerated his breakfast. Looking forward to going home. REVIEW OF SYSTEMS: Done for constitutional, cardiovascular, GI, pulmonary; relevant findings as above. CURRENT MEDICATIONS: Reviewed. PHYSICAL EXAMINATION: Temperature 98.4, pulse 75, respiration 15, blood pressure 124/58, pulse ox 98% on 2 L. GENERAL APPEARANCE: Sitting up, comfortable. LUNGS: Decreased breath sounds. CARDIOVASCULAR: First and second sounds normal. No edema. ABDOMEN: Soft, nontender. Liver and spleen not palpable. MUSCULOSKELETAL: Right shoulder in a dressing. INVESTIGATIONS: White count 7.4, hemoglobin 11.2. ASSESSMENT: 1. Right shoulder total arthroplasty. 2. Chronic obstructive pulmonary disease in an ex-smoker. 3. Essential hypertension. 4. Hyperlipidemia. 5. Primary osteoarthritis of the joints. 6. Chronic hypoxic respiratory failure from underlying chronic obstructive pulmonary disease. 7. Benign prostatic hypertrophy. 8. Hypothyroidism. 9. Mild leukocytosis, likely reactive; clinically has no evidence of infection. PLAN: Care was discussed with the patient and his . They are very keen to go home. Medications to continue. MMODL / IJN: [id number] /
== END 2017-01-23 15:55 | disposition home health service (06) | DRG 483 ==
LOC: 2ORMAIN 10:20 → 3SUR 15:20
PROVIDERS: ADMIT Orthopaedic Surgery; ATTEND Orthopaedic Surgery
PROC: 0RRJ0JZ Replacement of Right Shoulder Joint with Synthetic Substitute, Open Approach (ICD-10-PCS; principal; 2017-01-22 08:00)
DX: M19.019 Primary osteoarthritis, unspecified shoulder (principal); J96.11 Chronic respiratory failure with hypoxia; Z99.81 Dependence on supplemental oxygen; J44.9 Chronic obstructive pulmonary disease, unspecified; I10 Essential (primary) hypertension; E03.9 Hypothyroidism, unspecified; D72.829 Elevated white blood cell count, unspecified; E78.00 Pure hypercholesterolemia, unspecified; N40.0 Benign prostatic hyperplasia without lower urinary tract symptoms; Z79.899 Other long term (current) drug therapy; Z82.49 Family history of ischemic heart disease and other diseases of the circulatory system; Z83.3 Family history of diabetes mellitus; Z87.891 Personal history of nicotine dependence; Z79.891 Long term (current) use of opiate analgesic
CPT/HCPCS: 64415; 85025; 88300; 94640; 94760

== ENCOUNTER → 2017-08-16 | Outpatient (CLI) | payer MEDICARE, BC ==
--- NOTE | 2017-08-16 09:57 | US ---
EXAMINATION TYPE: US abdomen complete DATE OF EXAM: 08/16/2017 COMPARISON: NONE CLINICAL HISTORY: R10.13 epigastric pain. Epigastric pain, NPO EXAM MEASUREMENTS: Liver Length: 16.8 cm Gallbladder Wall: 0.3 cm CHD: 0.4 cm Spleen: 10.1 cm Right Kidney: 9.4 x 6.4 x 5.9 cm Left Kidney: 9.9 x 5.5 x 5.0 cm Limited visualization due to overlying bowel gas Pancreas: Obscured by bowel gas Liver: Left lobe of liver not visualized due to bowel gas Gallbladder: Multiple mobile echogenic foci seen. GB wall appears upper limits of normal. GB appea rs enlarged. Evidence for sonographic Stoner's sign: neg CBD: Obscured by overlying bowel gas and stone shadow Spleen: wnl Right Kidney: wnl Left Kidney: wnl Upper IVC: Obscured by overlying bowel gas Abd Aorta: Prox and mid obscured by overlying bowel gas. Distal portion visualized. The intrahepatic portion of the IVC and proximal abdominal aorta are within normal limits. Common alexnadro e duct is unremarkable. The spleen is unremarkable. Kidneys are symmetric and free of hydronephrosis . No renal lesions are seen. IMPRESSION: Although there is no common bile duct dilation and sonographic Stoner sign is negative th e gallbladder is enlarged containing multiple gallstones, biliary sludge, and gallbladder wall promin ence. Findings are concerning for chronic cholecystitis and correlation with serum laboratory values is recommended.
== END | disposition home or self-care (01) ==
LOC: RADUSMAIN 08:37
PROVIDERS: ATTEND Family Medicine
DX: R10.13 Epigastric pain (principal)
CPT/HCPCS: 76700

== ENCOUNTER 2017-09-12 07:35 | Day surgery (SDC) | payer MEDICARE, BC ==
[2017-09-06 15:25] VITALS: BMI 28.2
[~2017-09-12 07:35] MED LIST changes: -ACETAMINOPHEN TAB 500 MG TAB PO ONE; +HEPARIN SODIUM,PORCINE 5,000 UNIT/ML 1 ML VIAL SQ ONE; +LACTATED RINGERS 1,000 ML IV SCH; -MELOXICAM 7.5 MG TAB PO ONE; -MIDAZOLAM 2 MG/2 ML VIAL IV PRN; -TRANEXAMIC ACID 1,000 MG in SODIUM CHLORIDE 0.9% 100 ML IVPB ONE
--- NOTE | 2017-09-12 08:48 | P.GSHP ---
History of Present Illness H&P Date: 09/12/17 Chief Complaint: Right upper quadrant pain This is a 69-year-old male who's had complete the right quadrant pain. Patient presents today for laparoscopic cholecystectomy. His recent ultrasound shows evidence of cholelithiasis. Past Medical History Past Medical History: COPD, Hyperlipidemia, Hypertension, Osteoarthritis (OA), Prostate Disorder, Thyroid Disorder Additional Past Medical History / Comment(s): uses O2 @ 2 liter nc at nighttime , USES CANE TO AMBULATE, Dr. Jones History of Any Multi-Drug Resistant Organisms: None Reported Past Surgical History: Adenoidectomy, Appendectomy, Joint Replacement, Tonsillectomy Additional Past Surgical History / Comment(s): TOTAL LEFT SHOULDER, TOTAL LEFT HIP, alexandro carpel tunnel, alexandro cataracts, TOTAL RIGHT SHOULDER ARTHROPLASTY 2016, Past Anesthesia/Blood Transfusion Reactions: Postoperative Nausea & Vomiting ( PONV) Additional Past Anesthesia/Blood Transfusion Reaction / Comment(s): no hx blood transfusion Smoking Status: Former smoker - Past Family History Mother Family Medical History: Congestive Heart Failure (CHF), Diabetes Mellitus Father Family Medical History: Cancer Additional Family Medical History / Comment(s): lung Brother(s) Family Medical History: COPD Medications and Allergies Home Medications Medication Instructions Recorded Confirmed Type Albuterol Sulfate [Proair Hfa] 1 - 2 puff INHALATION RT-Q6H PRN 05/03/15 History Atorvastatin [Lipitor] 10 mg PO HS 05/03/15 09/06/17 History Budesonide/Formoterol Fumarate 1 puff INHALATION RT-BID 05/03/15 09/06/17 History [Symbicort 160-4.5 Mcg Inhaler] Hydrochlorothiazide [Hydrodiuril] 12.5 mg PO DAILY 05/03/15 09/06/17 History Ipratropium-Albuterol Nebulize 3 ml INHALATION RT-BID 05/03/15 09/06/17 History [Duoneb 0.5 mg-3 mg/3 ml Soln] Levothyroxine Sodium [Synthroid] 175 mcg PO QAM 05/03/15 09/06/17 History DULoxetine HCL [Cymbalta] 60 mg PO BID 05/24/16 09/06/17 History Methadone [Dolophine] 7.5 mg PO 0700,1500,2300 05/24/16 09/06/17 History Moexipril HCl [Univasc] 15 mg PO QAM 05/24/16 09/06/17 History Polyethylene Glycol 3350 [Miralax] 17 gm PO DAILY 05/24/16 09/06/17 History Sennosides-Docusate Sodium 2 each PO HS PRN tab 01/23/17 09/06/17 Rx [Senokot-S] traMADol HCl [Ultram] 50 mg PO Q6H PRN #40 tab 01/23/17 09/12/17 Rx Bisacodyl [Dulcolax] 5 mg PO DAILY 09/06/17 09/06/17 History Dutasteride 0.5 mg PO DAILY 09/06/17 09/06/17 History Omeprazole [PriLOSEC] 20 mg PO AC-BRKFST 09/06/17 09/12/17 History Polyethylene Glycol 3350 [Miralax] 17 gm PO DAILY 09/06/17 09/06/17 History Allergies Allergy/AdvReac Type Severity Reaction Status Date / Time No Known Allergies Allergy Verified 09/12/17 08:24 Surgical - Exam Vital Signs Temp Pulse Resp BP Pulse Ox 98.1 F 78 16 119/60 98 09/12/17 08:24 09/12/17 08:24 09/12/17 08:24 09/12/17 08:24 09/12/17 08:24 - General well developed, no distress - Eyes PERRL - ENT normal pinna - Neck no masses - Respiratory normal expansion - Cardiovascular Rhythm: regular - Abdomen Abdomen: soft, non tender Assessment and Plan Assessment: Cholelithiasis Chronic cholecystitis We'll perform laparoscopic cholecystectomy.
[2017-09-12] MEDS ORDERED: NEOSTIGMINE 1 MG/ML 10 ML VIAL ONE (09:09)
[2017-09-12] MEDS ORDERED: LIDOCAINE 1% INJ 10MG/ML (20 ML MDV) ONE (09:09)
[2017-09-12] MEDS ORDERED: ePHEDrine SULFATE/0.9% NACL/PF 50 MG/5 ML SYRINGE IV ONE (09:09)
[2017-09-12] MEDS ORDERED: HYDROmorphone (PF) 1 MG/ML ONE (09:09)
[2017-09-12] MEDS ORDERED: MIDAZOLAM 2 MG/2 ML VIAL ONE (09:09)
[2017-09-12] MEDS ORDERED: GLYCOPYRROLATE 0.2 MG/ML 2 ML VIAL ONE (09:09)
[2017-09-12] MEDS ORDERED: SODIUM CHLORIDE 0.9% 100 ML with ceFAZolin 2,000 MG IV ONE ×2 (09:09)
[2017-09-12] MEDS ORDERED: SUCCINYLCHOLINE CHLORIDE 100 MG/5 ML SYR IV ONE (09:09)
[2017-09-12] MEDS ORDERED: PROPOFOL 10 MG/ML 20 ML VIAL IV ONE (09:09)
[2017-09-12] MEDS ORDERED: ROCURONIUM BROMIDE 10 MG/ML 10 ML VIAL IV ONE (09:09)
[2017-09-12] MEDS ORDERED: ROPIVACAINE 5 MG/ML 30 ML VIAL MISCELLANE ONE (09:35)
--- NOTE | 2017-09-12 10:21 | P.OP ---
Date of Procedure: 09/12/17 Preoperative Diagnosis: Cholecystitis Cholelithiasis Postoperative Diagnosis: Cholecystitis Cholelithiasis Procedure(s) Performed: Laparoscopic cholecystectomy Anesthesia: PALMIRA Surgeon: Neto Figueroa Estimated Blood Loss (ml): 10 Pathology: other (Gallbladder, cholelithiasis) Condition: stable Disposition: PACU Description of Procedure: The patient was placed on the operating table. The patient received a general endotracheal tube anesthesia. The patients abdomen was prepped and draped in the usual sterile fashion. Through an infraumbilical stab incision, the fascia of the anterior abdominal wall was grasped with a pair of Kochers and then the Veress needle was placed in the peritoneal cavity. Position of the Veress needle was confirmed with positive drop test. The abdomen was then insufflated. After adequate insufflation, the 10 mm trocar was placed in the peritoneal cavity. Following this the laparoscope was placed in the peritoneal cavity. The patient was placed in the head-up, right side up position and then a 5 mm trocar was placed in the right lateral and right subcostal position under direct visualization. A 8 mm trocar was placed in the epigastric position. The gallbladder was grasped in the fundus and infundibulum. Traction on the gallbladder was placed in the lateral and the cephalad positions. The triangle of Calot was visualized.. The cystic duct was bluntly dissected until the union of the cystic duct and common bile duct was seen. The cystic duct was then divided and sealed with the Harmonic scissors. A PDS Endoloop was then placed throughout the cystic duct stump. The cystic artery divided and sealed with the Harmonic scissors. The gallbladder was then removed from the liver bed using Harmonic scissors. The gallbladder was then extracted through the epigastric port site. Operative field was checked for any bleeding spots and Harmonic scissors was used to coagulate the liver bed. The abdomen was irrigated. The trocars were removed. The skin was closed using interrupted 3-0 Vicryl suture. Dermabond dressing were applied. The patient tolerated the procedure well.
[2017-09-12 10:24] VITALS: TEMP 97.2
[2017-09-12] MEDS: HYDROmorphone 0.5 MG/0.5 ML SYRINGE IVP PRN ×4 (10:25→10:45)
[2017-09-12] MEDS ORDERED: HYDROcodone/APAP 7.5-325MG 1 EACH TAB PO ONE (12:16)
[2017-09-12 12:42] VITALS: BP 125/71; PULSE 78; RESP 18
== END 2017-09-12 13:12 | disposition home or self-care (01) ==
LOC: OR 07:35
PROVIDERS: ATTEND Surgery
DX: K80.10 Calculus of gallbladder with chronic cholecystitis without obstruction (principal); J44.9 Chronic obstructive pulmonary disease, unspecified; E78.5 Hyperlipidemia, unspecified; I10 Essential (primary) hypertension; M19.90 Unspecified osteoarthritis, unspecified site; N42.9 Disorder of prostate, unspecified; E07.9 Disorder of thyroid, unspecified; K21.9 Gastro-esophageal reflux disease without esophagitis; Z99.81 Dependence on supplemental oxygen; Z79.890 Hormone replacement therapy; Z79.51 Long term (current) use of inhaled steroids; Z79.899 Other long term (current) drug therapy; Z87.891 Personal history of nicotine dependence; Z96.642 Presence of left artificial hip joint; Z96.612 Presence of left artificial shoulder joint; Z96.611 Presence of right artificial shoulder joint
CPT/HCPCS: 88304; 47562; J2250; J1644; J1100; J2710; J2405; J2001; J1170 ×2; J0690; J2795; J0330; J2704

== ENCOUNTER → 2020-05-12 | Outpatient (CLI) | payer MEDICARE, BC | END | disposition home or self-care (01) | LOC: LABWHC1 12:54 | PROVIDERS: ATTEND Anesthesiology | DX: G89.29 Other chronic pain (principal) | CPT/HCPCS: 36415; 93005 ==

== ENCOUNTER 2021-01-02 09:58 | Day surgery (SDC) | payer MEDICARE, BC ==
[~2021-01-02 09:58] MED LIST changes: +ALPRAZolam 0.25 MG TAB PO PRN; +ALPRAZolam 0.5 MG TAB PO PRN; +ASPIRIN 325 MG TAB PO ONE; +ATORVASTATIN 80 MG TAB PO ONE; -DEXAMETHASONE SOD PHOSPHATE 10 MG/ML 1 ML VIAL IV ONE; +HEPARIN SODIUM,PORCINE 10,000 UNIT in SODIUM CHLORIDE 0.9% 1,000 ML IRRIGATION PRN; +HEPARIN SODIUM,PORCINE 2,500 UNIT in SODIUM CHLORIDE 0.9% 250 ML IRRIGATION PRN; -HEPARIN SODIUM,PORCINE 5,000 UNIT/ML 1 ML VIAL SQ ONE; -LACTATED RINGERS 1,000 ML IV SCH; +NITROGLYCERIN SL TABS 0.4 MG TAB SUBLINGUAL PRN; -ONDANSETRON 4 MG/2 ML VIAL IVP ONE; -ceFAZolin IN SWFI 2 GM/20 ML SYRINGE IVP ONE
[2021-01-02] MEDS: SODIUM CHLORIDE 0.9% 1,000 ML in EMPTY BAG 1 BAG IV SCH ×3 (11:00→23:23)
[2021-01-02] MEDS ORDERED: LIDOCAINE 1% INJ 10MG/ML (20 ML MDV) ONE (12:04)
[2021-01-02] MEDS ORDERED: VERAPAMIL 2.5 MG/ML 2 ML AMP ONE (12:04)
[2021-01-02] MEDS ORDERED: HEPARIN SODIUM 1,000 UN/ML (10ML VL) ONE (12:30)
[2021-01-02] MEDS ORDERED: fentaNYL (PF) 50 MCG/ML 2 ML AMP ONE (12:30)
[2021-01-02] MEDS ORDERED: fentaNYL (PF) 50 MCG/ML 2 ML AMP IV ONE (12:40)
[2021-01-02] MEDS: MIDAZOLAM 2 MG/2 ML VIAL IV ONE ×2 (12:40→12:48)
[2021-01-02] MEDS ORDERED: LIDOCAINE 1% INJ 10MG/ML (20 ML MDV) SQ ONE (12:44)
[2021-01-02] MEDS ORDERED: VERAPAMIL SYRINGE (5 MG/10 ML) INTRAARTER ONE (12:49)
[2021-01-02] MEDS: HEPARIN SODIUM 1,000 UN/ML (10ML VL) IV ONE ×2 (13:04→13:31)
[2021-01-02 13:10] LABS: O2 Sat Blood Gas 55.3 %
[2021-01-02 13:12] LABS: O2 Sat Blood Gas 96.5 %
[2021-01-02 13:14] LABS: O2 Sat Blood Gas 58.1 %
[2021-01-02] MEDS: NITROGLYCERIN 1000MCG/10ML SYRINGE INTRACORON ONE ×3 (13:20→13:38)
[2021-01-02] MEDS ORDERED: CLOPIDOGREL 75 MG TAB ONE (13:28)
[2021-01-02] MEDS ORDERED: CLOPIDOGREL 75 MG TAB PO ONE (13:31)
[2021-01-02] MEDS ORDERED: IOPAMIDOL-370 125ML BTL INJ ONE (13:33)
[2021-01-02] MEDS ORDERED: IOPAMIDOL-370 100ML BTL INJ ONE (13:47)
[2021-01-02] MEDS ORDERED: DOCUSATE 100 MG CAP PO PRN (13:59)
[2021-01-02] MEDS ORDERED: ATROPINE SULFATE 0.1 MG/ML 10ML SYRINGE IV PRN (14:01)
[2021-01-02] MEDS ORDERED: ZOLPIDEM 5 MG TAB PO PRN (14:01)
[2021-01-02] MEDS ORDERED: MAG HYDROX/AL HYDROX/SIMETH 30 ML CUP PO PRN (14:01)
[2021-01-02] MEDS ORDERED: RX INFO: IV CONTRAST WAS GIVEN 1 EACH MISC MISCELLANE PRN (14:01)
[2021-01-02] MEDS ORDERED: SODIUM CHLORIDE 0.9% 1,000 ML IV SCH (14:15)
[2021-01-02] MEDS: METHADONE 5 MG TAB PO SCH ×2 (15:11→23:18)
[2021-01-02] MEDS ORDERED: polyethylene glycoL 3350 17 GM POWD.PACK PO SCH (17:30)
--- NOTE | 2021-01-02 17:59 | P.PRCINT ---
Percutaneous Coronary Int. - Percutaneous Coronary Intervention Percutaneous Coronary Intervention: PROCEDURES PERFORMED: Left heart catheterization, bilateral coronary angiography, iFR of LAD, PCI mid LAD with a [id number] Xience CUATE INDICATION: Abnormal stress test, cardiomyopathy HISTORY: Patient is a pleasant 80 year old male with history of cardiomyopathy EF 35%, COPD, HTN, BPH, Afib, previous tobacco abuse. This was thought possibly related to his Afib however was placed on rate controlling medications and diuretics and felt worse. He had Lexiscan stress test with fixed defect however given he has been feeling worse with increased MERCADO despite heart failure regimen and antianginal medications, right and left heart cathertization was recommened. CONSENT:I have discussed the risks, benefits and alternative therapies for the above-mentioned procedure and for both sedation/analgesia as well as necessary blood product administration, if indicated, as they pertain to this patient. The patient has indicated understanding and acceptance of the risks and procedures discussed. PROCEDURE: After the risks, benefits and alternatives of the above mentioned procedure explained in detail with the patient, informed consent was obtained. Patient was taken to the catheterization lab and prepped and draped in usual fashion. 1% lidocaine was used to anesthetize the right radial artery. A 6- Kenyan sheath was placed in the right radial artery using modified Seldinger technique. Next the right brachial site was anesthetized and a 6Fr sheath was placed in the right brachial vein using US guidance and modified Seldinger technique. Right heart catheterization was performed with a 6Fr [place] Lidia catheter and pressure measurements and blood gases were obtained for Abby Cardiac output calculations. Left coronary angiography was performed with a 5-Kenyan JL 3.5 catheter and right coronary angiography was performed with a 5-Kenyan JR5 catheter in various views. A 5-Kenyan FR5 catheter was inserted into the left ventricle and pressure measurements were obtained. There was an ostial LAD 60% stenosis and a mid LAD 70% stenosis. The decision was made to perform iFR of the LAD. Heparin was given for ACT > 250. A 6Fr CLS 3.0 guide was used to engage the left main. A 0.014 pressure wire was inserted into the left main and normalized. It was then advanced just past the proximal LAD lesion and iFR was noted to be normal at 0.92. Next the wire was placed distal to the mid LAD lesion and was abnormal at 0.79. The decision was made to perform PCI of the mid LAD. Pre dilatation was performed with a 2.5 x 8mm balloon. Next a 3.25 x 15mm Xience CUATE was placed in the mid LAD, jailing a sm all caliber diagonal branch without any effect on flow and without any diagonal stenosis. Pre intervention there was CALDERON 2 flow and 70% stenosis and post intervention there was 0% stenosis and CALDERON 3 flow. The wire was pulled and final angiograms were performed. The right radial sheath was removed and a TR band was placed with hemostasis achieved. The right brachial sheath was taken out and manual pressure was held. The patient tolerated the procedure well. Patient was transported back to the post catheterization holding area in stable condition. Conscious Sedation: Patient was monitored under the direct supervision of vision of myself for conscious sedation using Versed and fentanyl for a total duration of 60 minutes HEMODYNAMICS: Ao: 119/72 LV: 115/13, LVEDP 19mmHg RA: 11 mmHg RV: 41/2 PA: 38/17, MAP: 25 PCWP: 22mmHg with a small V wave RA O2 saturation: 54% PA O2 saturation: 55% R radial arterial sat: 97% Cardiac output by Abby: 4.75 L/min Cardiac index by Abby: 2.08 L/min/m2 SELECTIVE CORONARY ARTERIOGRAPHY: LEFT MAIN: The left main is a large caliber vessel which bifurcates into the LAD and circumflex. There is no significant stenosis. LEFT ANTERIOR DESCENDING CORONARY ARTERY: LAD is a large caliber vessel which wraps around the apex. There is an ostial LAD 60% stenosis and otherwise fairly normal except for a mid LAD 70% stenosis. There is CALDERON 2 flow of the LAD noted. LEFT CIRCUMFLEX CORONARY ARTERY: Left circumflex is a large caliber vessel with mild luminal irregularities. The circumflex is the dominant vessel and gives off a PDA branch. RIGHT CORONARY ARTERY: The right coronary artery is a small caliber vessel which gives off an RV branch and is the non dominant vessel. There is proximal 30% stenosis. FINAL IMPRESSION: 1. CAD as described above with 60% proximal LAD and 70% mid LAD. S/p PCI mid LAD with a [id number] Xience CUATE 2. Elevated left and right sided pressures 3. Normal cardiac output PLAN: 1. Aggressive risk factor modification per most recent ACC/AHA guidelines. 2. Recommend increasing diuretics given elevated left and right sided filling pressures. 3. Continue to treat ostial LAD medically given normal iFR. 4. Continue aspirin, Plavix and Coumadin for 1 month then likely switch to Coumadin and Plavix ideally for 12 months.
[2021-01-02] MEDS ORDERED: WARFARIN 10 MG TAB PO ONE (18:15)
[2021-01-02] MEDS: IPRATROPIUM-ALBUTEROL 3 ML NEB INHALATION SCH (19:19)
[2021-01-02] MEDS: SYMBICORT 160-4.5 MCG INHALER INHALATION SCH (19:26)
[2021-01-02] MEDS: DULoxetine HCL 60 MG CAPSULE.DR PO SCH (19:54)
[2021-01-02] MEDS: FUROSEMIDE 10 MG/ML 4 ML VIAL IV SCH (19:54)
[2021-01-02] MEDS ORDERED: ATORVASTATIN 40 MG TAB PO SCH (21:00)
[2021-01-02] MEDS ORDERED: FUROSEMIDE 20 MG TAB PO SCH (21:00)
[2021-01-02] MEDS ORDERED: TAMSULOSIN 0.4 MG CAP.ER.24H PO SCH (21:00)
[2021-01-02] MEDS ORDERED: NON FORMULARY DRUG (Ubidecarenone [Co Q-10] 100 MG Capsule) PO SCH (21:00)
[2021-01-02] MEDS ORDERED: ATORVASTATIN 10 MG TAB PO SCH (21:00)
[2021-01-02] MEDS ORDERED: METOPROLOL SUCCINATE (ER) 25 MG TAB.ER.24H PO SCH (23:00)
[2021-01-03 01:35] VITALS: TEMP 98.1
[2021-01-03 06:03] LABS: Basophils # (A) 0.1 k/uL (0-0.2); Basophils % (A) 1 %; Eosinophils # (A) 0.1 k/uL (0-0.7); Eosinophils % (A) 2 %; HCT 38.3 % (39.0-53.0); HGB 12.1 gm/dL (13.0-17.5); Lymphocytes # (A) 1.2 k/uL (1.0-4.8); Lymphocytes % (A) 26 %; MCHC 31.6 g/dL (31.0-37.0); MCV 91.7 fL (80.0-100.0); Mean Platelet Volume 7.3; Monocytes # (A) 0.4 k/uL (0-1.0); Monocytes % (A) 8 %; Neutrophils # (A) 2.8 k/uL (1.3-7.7); Neutrophils % (A) 61 %; Platelet Count 200 k/uL (150-450); RBC 4.18 m/uL (4.30-5.90); RDW 14.3 % (11.5-15.5); WBC 4.6 k/uL (3.8-10.6)
[2021-01-03 06:14] LABS: African American GFR (CKD) >90 (>60 ml/min/1.73 sqM); Anion Gap 4 mmol/L; Blood Urea Nitrogen 15 mg/dL (9-20); Calcium 8.6 mg/dL (8.4-10.2); Carbon Dioxide 31 mmol/L (22-30); Chloride 101 mmol/L (98-107); Glucose 103 mg/dL (74-99); Non-African American GFR(CKD) 83 (>60 ml/min/1.73 sqM); Potassium 4.6 mmol/L (3.5-5.1); Sodium 136 mmol/L (137-145)
[2021-01-03] MEDS ORDERED: LEVOTHYROXINE 100 MCG TAB PO SCH (06:30)
[2021-01-03] MEDS: IPRATROPIUM-ALBUTEROL 3 ML NEB INHALATION SCH (07:24)
[2021-01-03] MEDS: SYMBICORT 160-4.5 MCG INHALER INHALATION SCH (07:24)
[2021-01-03 07:36] VITALS: BP 112/74; PULSE 90; RESP 18
[2021-01-03] MEDS: METHADONE 5 MG TAB PO SCH (07:59)
[2021-01-03] MEDS: FUROSEMIDE 10 MG/ML 4 ML VIAL IV SCH (07:59)
[2021-01-03] MEDS: DULoxetine HCL 60 MG CAPSULE.DR PO SCH (08:00)
[2021-01-03] MEDS ORDERED: FINASTERIDE 5 MG TAB PO SCH (09:00)
[2021-01-03] MEDS ORDERED: ASPIRIN 81 MG PO SCH (09:00)
[2021-01-03] MEDS ORDERED: CHOLECALCIFEROL 25 MCG (1000 IU) TABLET PO SCH (09:00)
[2021-01-03] MEDS ORDERED: lisinopriL 20 MG TAB PO SCH (09:00)
[2021-01-03] MEDS ORDERED: MULTIVITAMINS, THERA 1 EACH TAB PO SCH (09:00)
[2021-01-03] MEDS ORDERED: ZINC SULFATE 220 MG CAP PO SCH (09:00)
[2021-01-03] MEDS ORDERED: CLOPIDOGREL 75 MG TAB PO SCH (09:00)
[2021-01-03] MEDS ORDERED: NON FORMULARY DRUG (Turmeric Root Extract [Turmeric] 500 MG Capsule) PO SCH (09:00)
[2021-01-03 10:48] VITALS: BMI 29.0
[2021-01-03 12:03] LABS: INR 1.06 (0.90-1.11); Prothrombin Time 11.5 sec (9.9-11.9)
[2021-01-03] MEDS ORDERED: WARFARIN 5 MG TAB PO ONE (18:00)
--- NOTE | 2021-01-03 18:10 | P.DS ---
Providers Attending physician: Dhruv Ochoa DO Consults: 01/02/21 14:01 Consult Physician Routine Consulting Provider: [facility] Consult Reason/Comments: Post Interventional patient Do you want consulting provider notified?: Already Contacted [facility] Course: Patient is a pleasant 80 year old male with history of cardiomyopathy EF 35%, COPD, HTN, BPH, Afib, previous tobacco abuse. This was thought possibly related to his Afib however was placed on rate controlling medications and diuretics and felt worse. He had Lexiscan stress test with fixed defect however given he has been feeling worse with increased MERCADO despite heart failure regimen and antianginal medications, right and left heart cathertization was recommened. Heart catheterization 01/02/21 showed elevated left and right sided pressures as well as 60% proximal LAD and 70% mid LAD lesion with mid LAD lesion being iFR abnormal however proximal lesion normal. Patient underwent successful PCI mid LAD. He was placed on aspirin and Plavix. He has been unable to afford NOAC and therefore was started on Coumadin. He was given IV diuretics and his home Lasix will be increased from 20mg bid to 40mg bid. He was seen and examined on 01/03 with regular rate and rhythm, no murmur, in no distress. Patient discharged home with outpt followup in 1 week. Plan - Discharge Summary Discharge Rx Participant: No New Discharge Prescriptions: New Atorvastatin [Lipitor] 40 mg PO HS #90 tab Mag Hydrox/Al Hydrox/Simeth [Maalox] 30 ml PO Q4HR PRN ml PRN Reason: Heartburn Clopidogrel [Plavix] 75 mg PO DAILY #90 tab ALPRAZolam [Xanax] 0.25 mg PO Q6HR PRN tab PRN Reason: Mild Anxiety lisinopriL [Zestril] 20 mg PO QAM tab Aspirin 81 mg PO DAILY tab Warfarin [Coumadin] 5 mg PO DAILY #30 tab Furosemide [Lasix] 40 mg PO BID #60 tablet Nitroglycerin Sl Tabs [Nitrostat] 0.4 mg SUBLINGUAL Q5M PRN tab PRN Reason: Chest Pain Continue Budesonide/Formoterol Fumarate [Symbicort 160-4.5 Mcg Inhaler] 1 puff INHALATION RT-BID Methadone [Dolophine] 7.5 mg PO 0700,1500,2300 DULoxetine HCL [Cymbalta] 60 mg PO BID Moexipril HCl [Univasc] 15 mg PO QAM Dutasteride 0.5 mg PO DAILY Docusate [Colace] 100 mg PO DIRECTED PRN PRN Reason: Constipation Levothyroxine Sodium 200 mcg PO DAILY Cholecalciferol (Vitamin D3) [Vitamin D3 (125 MCG = 5,000 IU)] 125 mcg PO DAILY Ubidecarenone [Co Q-10] 200 mg PO HS Turmeric Root Extract [Turmeric] 1,000 mg PO DAILY Multivit-Min/Folic/Vit K/Lycop [Men's Multivitamin Tablet] 1 each PO DAILY Tamsulosin [Flomax] 0.4 mg PO HS Metoprolol Succinate (ER) [Toprol XL] 25 mg PO DAILY@2300 polyethylene glycoL 3350 [Miralax] 17 gm PO W/SUPPER Zinc 50 mg PO DAILY Ipratropium-Albuterol Neb. 1 dose INHALATION BID Discontinued Atorvastatin [Lipitor] 10 mg PO HS Furosemide [Lasix] 20 mg PO BID Apixaban [Eliquis] 5 mg PO BID Discharge Medication List Budesonide/Formoterol Fumarate [Symbicort 160-4.5 Mcg Inhaler] 1 puff INHALATION RT-BID 05/03/15 [History] DULoxetine HCL [Cymbalta] 60 mg PO BID 05/24/16 [History] Methadone [Dolophine] 7.5 mg PO 0700,1500,2300 05/24/16 [History] Moexipril HCl [Univasc] 15 mg PO QAM 05/24/16 [History] Dutasteride 0.5 mg PO DAILY 09/06/17 [History] Cholecalciferol (Vitamin D3) [Vitamin D3 (125 MCG = 5,000 IU)] 125 mcg PO DAILY 12/30/20 [History] Docusate [Colace] 100 mg PO DIRECTED PRN 12/30/20 [History] Ipratropium-Albuterol Neb. 1 dose INHALATION BID 12/30/20 [History] Levothyroxine Sodium 200 mcg PO DAILY 12/30/20 [History] Metoprolol Succinate (ER) [Toprol XL] 25 mg PO DAILY@2300 12/30/20 [History] Multivit-Min/Folic/Vit K/Lycop [Men's Multivitamin Tablet] 1 each PO DAILY 12/30/20 [History] Tamsulosin [Flomax] 0.4 mg PO HS 12/30/20 [History] Turmeric Root Extract [Turmeric] 1,000 mg PO DAILY 12/30/20 [History] Ubidecarenone [Co Q-10] 200 mg PO HS 12/30/20 [History] Zinc 50 mg PO DAILY 12/30/20 [History] polyethylene glycoL 3350 [Miralax] 17 gm PO W/SUPPER 12/30/20 [History] ALPRAZolam [Xanax] 0.25 mg PO Q6HR PRN tab 01/03/21 [Rx] Aspirin 81 mg PO DAILY tab 01/03/21 [Rx] Atorvastatin [Lipitor] 40 mg PO HS #90 tab 01/03/21 [Rx] Clopidogrel [Plavix] 75 mg PO DAILY #90 tab 01/03/21 [Rx] Furosemide [Lasix] 40 mg PO BID #60 tablet 01/03/21 [Rx] Mag Hydrox/Al Hydrox/Simeth [Maalox] 30 ml PO Q4HR PRN ml 01/03/21 [Rx] Nitroglycerin Sl Tabs [Nitrostat] 0.4 mg SUBLINGUAL Q5M PRN tab 01/03/21 [Rx] Warfarin [Coumadin] 5 mg PO DAILY #30 tab 01/03/21 [Rx] lisinopriL [Zestril] 20 mg PO QAM tab 01/03/21 [Rx] Follow up Appointment(s)/Referral(s): Dhruv Ochoa DO [STAFF PHYSICIAN] - 01/10/21 9:45 am (Follow up with Dr. Ochoa as scheduled for you) Patient Instructions/Handouts: *Surgery [facility] - After Heart Catheterization - A mbulatory Care Instructions, After Radial Heart Catheterization (GEN) Activity/Diet/Wound Care/Special Instructions: Repeat INR for Coumadin level on with your primary physician. Avoid flexing/bending the right wrist. Do not submerge in water. No lifting more than 5lbs. for 3 days.
== END 2021-01-03 14:23 ==
LOC: CATHCVL 09:58 → 6NMEDSUR 13:44 → CATHCVL 01-03 14:23
PROVIDERS: ATTEND Internal Medicine
DX: I25.10 Atherosclerotic heart disease of native coronary artery without angina pectoris (principal); I11.0 Hypertensive heart disease with heart failure; I50.23 Acute on chronic systolic (congestive) heart failure; I42.9 Cardiomyopathy, unspecified; J44.9 Chronic obstructive pulmonary disease, unspecified; N40.0 Benign prostatic hyperplasia without lower urinary tract symptoms; E78.5 Hyperlipidemia, unspecified; Z20.822 Contact with and (suspected) exposure to COVID-19; G89.29 Other chronic pain; I48.19 Other persistent atrial fibrillation; M54.9 Dorsalgia, unspecified; R60.0 Localized edema; Z79.01 Long term (current) use of anticoagulants; Z79.899 Other long term (current) drug therapy; Z82.49 Family history of ischemic heart disease and other diseases of the circulatory system; Z79.890 Hormone replacement therapy; Z79.51 Long term (current) use of inhaled steroids; Z79.02 Long term (current) use of antithrombotics/antiplatelets; Z79.82 Long term (current) use of aspirin
CPT/HCPCS: 94640; 93571; 93460; 80048; 85018; 82810; 85025; 85610; 87635; C9600; C1769 ×2; C1887; C1894; C1725; C1751; C1874; S0138; J2250; J1940 ×2; J2001; J3010; J1644; S0109 ×2; Q9967 ×2

== ENCOUNTER 2021-01-17 08:23 | Day surgery (SDC) | payer MEDICARE, BC ==
[2021-01-16 11:37] VITALS: BMI 27.6
[~2021-01-17 08:23] MED LIST changes: -ALPRAZolam 0.25 MG TAB PO PRN; -ALPRAZolam 0.5 MG TAB PO PRN; -ASPIRIN 325 MG TAB PO ONE; -ATORVASTATIN 80 MG TAB PO ONE; -HEPARIN SODIUM,PORCINE 10,000 UNIT in SODIUM CHLORIDE 0.9% 1,000 ML IRRIGATION PRN; -HEPARIN SODIUM,PORCINE 2,500 UNIT in SODIUM CHLORIDE 0.9% 250 ML IRRIGATION PRN; -NITROGLYCERIN SL TABS 0.4 MG TAB SUBLINGUAL PRN; +SODIUM CHLORIDE 0.9% 1,000 ML IV SCH
[2021-01-17 09:23] LABS: INR 1.9 (<1.2); Prothrombin Time 18.5 sec (9.0-12.0)
[2021-01-17] MEDS ORDERED: LIDOCAINE 1% INJ 10MG/ML (20 ML MDV) ONE (09:50)
[2021-01-17] MEDS ORDERED: PROPOFOL 10 MG/ML 20 ML VIAL IV ONE (09:50)
[2021-01-17 10:41] VITALS: TEMP 97.2
[2021-01-17 10:53] VITALS: RESP 18
--- NOTE | 2021-01-17 11:35 | P.TEE ---
Description of Procedure(s): Procedure performed: Transesophageal Echocardiogram with color flow doppler, pulsed wave doppler and continuous wave doppler Moderate conscious sedation: Moderate conscious sedation was supplied with direct supervision of myself using Versed and Fentanyl. Complications: none Indications: Afib History: Patient is a pleasant 80-year-old male with history of hypertension, hyperlipidemia, coronary artery disease status post recent PCI, cardiomyopathy and atrial fibrillation. He has been having dyspnea on exertion and decision was made for ZAK and cardioversion. He had recently been transitioned over to Coumadin and his INR was noted to be subtherapeutic today at 1.9. PROCEDURE: After the risks, benefits and alternatives of the above mentioned procedure was explained in detail with the patient, informed consent was obtained. Patient was brought to the lab in a fasting state. Patient was given sedation by anesthesia. The throat was sprayed with Hurricane to anesthetize the throat. A lubricated Omni probe was then introduced into the esophagus and stomach and multiple views were obtained. 2D echo with color flow doppler, pulsed wave doppler and continuous wave doppler was utilized. Agitated saline bubbles were injected to assess for any intra-atrial shunt. The probe was then removed. Given findings of possible MARII thrombus, no cardioversion was performed. Patient tolerated the procedure well. Patient was transferred to the post procedure area in stable and satisfactory condition. FINDINGS: 1. The aortic valve is tricuspid infarction normally. 2. The mitral valve appears be normal with mild mitral regurgitation. 3. Tricuspid valve was not well visualized. 4. The interatrial septum is intact. No evidence of PFO. 5. Left atrial appendage has extensive smoke and what appears to be a possible small thrombus. 6. Left ventricular size appears normal. There is global hypokinesis with ejection fraction 35-40%.
[2021-01-17 12:23] VITALS: BP 98/65; PULSE 74
== END 2021-01-17 12:44 | disposition home or self-care (01) ==
LOC: CATHCVL 08:23
PROVIDERS: ATTEND Internal Medicine
DX: I48.19 Other persistent atrial fibrillation (principal); I11.0 Hypertensive heart disease with heart failure; I50.22 Chronic systolic (congestive) heart failure; I42.9 Cardiomyopathy, unspecified; Z20.822 Contact with and (suspected) exposure to COVID-19; J44.9 Chronic obstructive pulmonary disease, unspecified; Z87.891 Personal history of nicotine dependence; Z79.01 Long term (current) use of anticoagulants; Z79.02 Long term (current) use of antithrombotics/antiplatelets; Z79.82 Long term (current) use of aspirin; Z79.890 Hormone replacement therapy; Z79.51 Long term (current) use of inhaled steroids; Z79.899 Other long term (current) drug therapy
CPT/HCPCS: 93312; 93320; 93325; 85610; 87635; J2001; J2704

== ENCOUNTER 2021-07-30 20:44 | Inpatient (IN) | payer MEDICARE, BC ==
[2021-07-30] MEDS ORDERED: SODIUM CHLORIDE 0.9% 500 ML 500 ML IV STA (21:29)
--- NOTE | 2021-07-30 21:29 | ED ---
Abdominal Pain HPI - General Chief Complaint: Abdominal Pain Stated Complaint: Abd pain Time Seen by Provider: 07/30/21 21:29 Source: patient, RN notes reviewed, old records reviewed Mode of arrival: EMS Limitations: no limitations - History of Present Illness Initial Comments: This is an 81-year-old male who is presented today for evaluation of possible recurrent hernia. Patient symptoms feel like prior hernia evaluations. He does have history of abdominal surgeries. Otherwise no current recent traumas no fevers mild nausea no vomiting. No travel history no sick contacts. MD Complaint: abdominal pain -: days(s) Location: periumbilical Radiation: none Migration to: no migration Severity: moderate Severity scale (1-10): 5 Quality: cramping, aching, sharp Consistency: intermittent Improves With: nothing Worsens With: nothing Context: recent surgery/procedure (History of multiple abdominal surgeries) Associated Symptoms: denies other symptoms Treatments Prior to Arrival: prescription analgesics - Related Data Home Medications Medication Instructions Recorded Confirmed Budesonide/Formoterol Fumarate 1 puff INHALATION RT-BID 05/03/15 01/17/21 [Symbicort 160-4.5 Mcg Inhaler] DULoxetine HCL [Cymbalta] 60 mg PO BID 05/24/16 01/17/21 Methadone [Dolophine] 7.5 mg PO 0700,1500,2300 05/24/16 01/17/21 Moexipril HCl [Univasc] 15 mg PO QAM 05/24/16 01/17/21 Dutasteride 0.5 mg PO DAILY 09/06/17 01/16/21 Cholecalciferol (Vitamin D3) 125 mcg PO DAILY 12/30/20 01/17/21 [Vitamin D3 (125 MCG = 5,000 IU)] Docusate [Colace] 100 mg PO DIRECTED PRN 12/30/20 01/16/21 Ipratropium-Albuterol Neb. 1 dose INHALATION BID 12/30/20 01/17/21 Levothyroxine Sodium 200 mcg PO DAILY 12/30/20 01/17/21 Metoprolol Succinate (ER) [Toprol 25 mg PO DAILY@2300 12/30/20 01/17/21 XL] Multivit-Min/Folic/Vit K/Lycop 1 each PO DAILY 12/30/20 01/17/21 [Men's Multivitamin Tablet] Tamsulosin [Flomax] 0.4 mg PO HS 12/30/20 01/17/21 Turmeric Root Extract [Turmeric] 500 mg PO BID 12/30/20 01/17/21 Ubidecarenone [Co Q-10] 200 mg PO HS 12/30/20 01/17/21 Zinc 50 mg PO DAILY 12/30/20 01/17/21 polyethylene glycoL 3350 [Miralax] 17 gm PO W/SUPPER 12/30/20 01/16/21 Warfarin [Coumadin] 5 mg PO AC-SUPPER 01/16/21 01/17/21 Previous Rx's Medication Instructions Recorded Aspirin 81 mg PO DAILY tab 01/03/21 Atorvastatin [Lipitor] 40 mg PO HS #90 tab 01/03/21 Clopidogrel [Plavix] 75 mg PO DAILY #90 tab 01/03/21 Furosemide [Lasix] 40 mg PO BID #60 tablet 01/03/21 Allergies Allergy/AdvReac Type Severity Reaction Status Date / Time No Known Allergies Allergy Verified 01/17/21 08:43 Review of Systems ROS Statement: Those systems with pertinent positive or pertinent negative responses have been documented in the HPI. ROS Other: All systems not noted in ROS Statement are negative. Past Medical History Past Medical History: Atrial Fibrillation, COPD, Hearing Disorder / Deafness, Hyperlipidemia, Hypertension, Osteoarthritis (OA), Prostate Disorder, Thyroid Disorder Additional Past Medical History / Comment(s): BPH., O2 @ 2 L@ HS., CHRONIC BACK PAIN, CONSTIPATION, SOB W/ACTIVITY., edema lower legs & feet much improved History of Any Multi-Drug Resistant Organisms: None Reported Past Surgical History: Adenoidectomy, Appendectomy, Cholecystectomy, Heart Catheterization With Stent, Joint Replacement, Tonsillectomy Additional Past Surgical History / Comment(s): TOTAL LEFT SHOULDER, TOTAL LEFT HIP, alexandro carpel tunnel, alexandro cataracts, TOTAL RIGHT SHOULDER ARTHROPLASTY 01-22-2017, Past Anesthesia/Blood Transfusion Reactions: Previous Problems w/ Anesthesia, Postoperative Nausea & Vomiting (PONV) Additional Past Anesthesia/Blood Transfusion Reaction / Comment(s): . Date of Last Stent Placement:: 01-02-21 Past Psychological History: Anxiety, Depression Smoking Status: Former smoker Past Alcohol Use History: None Reported Past Drug Use History: None Reported - Past Family History Mother Family Medical History: Congestive Heart Failure (CHF), Diabetes Mellitus Father Family Medical History: Cancer Additional Family Medical History / Comment(s): lung Brother(s) Family Medical History: COPD General Exam Limitations: no limitations General appearance: alert, in no apparent distress Head exam: Present: atraumatic, normocephalic, normal inspection Eye exam: Present: normal appearance, PERRL, EOMI. Absent: scleral icterus, conjunctival injection, periorbital swelling ENT exam: Present: normal exam, mucous membranes moist Neck exam: Present: normal inspection. Absent: tenderness, meningismus, lymphadenopathy Respiratory exam: Present: normal lung sounds bilaterally. Absent: respiratory distress, wheezes, rales, rhonchi, stridor Cardiovascular Exam: Present: regular rate, normal rhythm, normal heart sounds. Absent: systolic murmur, diastolic murmur, rubs, gallop, clicks GI/Abdominal exam: Present: soft, normal bowel sounds. Absent: distended, tenderness, guarding, rebound, rigid Extremities exam: Present: normal inspection, full ROM, normal capillary refill. Absent: tenderness, pedal edema, joint swelling, calf tenderness Back exam: Present: normal inspection Neurological exam: Present: alert, oriented X3, CN II-XII intact Psychiatric exam: Present: normal affect, normal mood Skin exam: Present: warm, dry, intact, normal color. Absent: rash Course Vital Signs 07/30/21 07/30/21 07/30/21 21:02 21:43 23:20 Temperature 98.1 F 97.9 F Pulse Rate 92 91 99 Respiratory 18 12 12 Rate Blood Pressure 128/77 148/95 151/89 O2 Sat by Pulse 98 97 98 Oximetry - Reevaluation(s) Reevaluation #1: 07/30/21 22:53 Medical record is reviewed Reevaluation #2: 07/30/21 23:22 Patient has improved pain control Reevaluation #3: 07/30/21 23:22 Patient is not actively vomiting Reevaluation #4: 07/30/21 23:22 Patient informed of results, questions answered - Consultations Consultation #1: spoke w Dr Juarez for Dr Figueroa who will see the patient Medical Decision Making - Medical Decision Making 81 male to the emergency for evaluation patient is with abdominal pain severe incarcerated umbilical hernia with small bowel obstruction. Patient be admitted for surgical evaluation and management, patient does have prior histories with Dr. Figueroa - Lab Data Result diagrams: 07/30/21 21:43 07/30/21 21:43 Lab Results 07/30/21 07/30/21 07/30/21 Range/Units 21:43 21:43 21:43 WBC 9.2 (3.8-10.6) k/uL RBC 4.47 (4.30-5.90) m/uL Hgb 13.2 (13.0-17.5) gm/dL Hct 40.2 (39.0-53.0) % MCV 89.9 (80.0-100.0) fL MCH 29.5 (25.0-35.0) pg MCHC 32.8 (31.0-37.0) g/dL RDW 14.8 (11.5-15.5) % Plt Count 271 (150-450) k/uL MPV 7.1 Neutrophils % 88 % Lymphocytes % 7 % Monocytes % 3 % Eosinophils % 0 % Basophils % 0 % Neutrophils # 8.1 H (1.3-7.7) k/uL Lymphocytes # 0.7 L (1.0-4.8) k/uL Monocytes # 0.3 (0-1.0) k/uL Eosinophils # 0.0 (0-0.7) k/uL Basophils # 0.0 (0-0.2) k/uL Sodium 131 L (137-145) mmol/L Potassium 4.2 (3.5-5.1) mmol/L Chloride 91 L (98-107) mmol/L Carbon Dioxide 32 H (22-30) mmol/L Anion Gap 8 mmol/L BUN 15 (9-20) mg/dL Creatinine 0.71 (0.66-1.25) mg/dL Est GFR (CKD-EPI)AfAm >90 (>60 ml/min/1.73 sqM) Est GFR (CKD-EPI)NonAf 88 (>60 ml/min/1.73 sqM) Glucose 128 H (74-99) mg/dL Plasma Lactic Acid Prasanna 1.2 (0.7-2.0) mmol/L Calcium 8.9 (8.4-10.2) mg/dL Total Bilirubin 1.5 H (0.2-1.3) mg/dL AST 38 (17-59) U/L ALT 27 (4-49) U/L Alkaline Phosphatase 141 H (38-126) U/L Total Protein 6.5 (6.3-8.2) g/dL Albumin 3.9 (3.5-5.0) g/dL Amylase 44 (30-110) U/L Lipase 38 (23-300) U/L - Radiology Data Radiology results: report reviewed (CT of the abdomen and pelvis is positive for incarcerated hernia with small bowel obstruction), image reviewed Disposition Clinical Impression: Abdominal pain, Small bowel obstruction, Incarcerated hernia Disposition: HOME SELF-CARE Condition: Fair Is patient prescribed a controlled substance at d/c from ED?: No Referrals: Ty Farrar MD [Primary Care Provider] - 1-2 days
[2021-07-30 21:59] LABS: Basophils % (A) 0 %; Eosinophils % (A) 0 %; HCT 40.2 % (39.0-53.0); HGB 13.2 gm/dL (13.0-17.5); Lymphocytes # (A) 0.7 k/uL (1.0-4.8); Lymphocytes % (A) 7 %; MCH 29.5 pg (25.0-35.0); MCHC 32.8 g/dL (31.0-37.0); MCV 89.9 fL (80.0-100.0); Mean Platelet Volume 7.1; Monocytes # (A) 0.3 k/uL (0-1.0); Monocytes % (A) 3 %; Neutrophils # (A) 8.1 k/uL (1.3-7.7); Neutrophils % (A) 88 %; Platelet Count 271 k/uL (150-450); RBC 4.47 m/uL (4.30-5.90); RDW 14.8 % (11.5-15.5); WBC 9.2 k/uL (3.8-10.6)
[2021-07-30 22:10] LABS: ALT 27 U/L (4-49); AST 38 U/L (17-59); African American GFR (CKD) >90 (>60 ml/min/1.73 sqM); Albumin 3.9 g/dL (3.5-5.0); Alkaline Phosphatase 141 U/L (38-126); Amylase 44 U/L (30-110); Anion Gap 8 mmol/L; Blood Urea Nitrogen 15 mg/dL (9-20); Calcium 8.9 mg/dL (8.4-10.2); Carbon Dioxide 32 mmol/L (22-30); Chloride 91 mmol/L (98-107); Glucose 128 mg/dL (74-99); Lipase 38 U/L (23-300); Non-African American GFR(CKD) 88 (>60 ml/min/1.73 sqM); Potassium 4.2 mmol/L (3.5-5.1); Sodium 131 mmol/L (137-145); Total Bilirubin 1.5 mg/dL (0.2-1.3); Total Protein 6.5 g/dL (6.3-8.2)
--- NOTE | 2021-07-30 23:04 | CT ---
EXAMINATION TYPE: CT abdomen pelvis w con DATE OF EXAM: 07/30/2021 COMPARISON: None HISTORY: lower abd pain and distention CT DLP: 1658.4 mGycm Automated exposure control for dose reduction was used. CONTRAST: Performed with IV Contrast, patient injected with 100 mL of Isovue 300. There is right pleural effusion. There is small left pleural effusion. Heart is slightly enlarged. No pericardial effusion. There is some mild atelectasis at the lung bases. Liver is intact. Spleen is intact. There is dilated fluid-filled stomach. There are multiple dilated small bowel loops with fluid levels in the mid abdomen. Small bowel dilated up to 4 cm. There is inca rcerated umbilical hernia that appears to contain small bowel. This is probably the transition point. Distal small bowel is not dilated. Hernia sac measures 6 cm. Appendix not seen. No sign of thickened appendix. There is left hip prosthesis. Bladder distends smoo thly. There is small amount of free fluid in the pelvis. There is some fluid in the paracolic gutters . No evidence of pancreatic mass. The bile ducts are not dilated. Kidneys show satisfactory contrast opacification. There is no hydronephrosis. Delayed images show normal renal excretion. There is subcu taneous edema around the abdomen. There is multilevel lumbar spondylotic changes. There is vacuum dis c throughout the lumbar spine. No significant compression deformity. The bony pelvis appears intact. No free air. IMPRESSION: Incarcerated umbilical hernia containing small bowel and appears to be site of high-grade mechanical small bowel obstruction. Mild abdominal ascites. Cardiomegaly and small pleural effusions. Congestive heart failure is possibl e.
[2021-07-30] MEDS ORDERED: NALOXONE 0.4 MG/ML 1 ML VIAL IV PRN (23:19)
[2021-07-30] MEDS ORDERED: MORPHINE SULFATE 4 MG/ML SYRINGE IV PRN (23:19)
[2021-07-30] MEDS ORDERED: ONDANSETRON 4 MG/2 ML VIAL IVP PRN (23:19)
[2021-07-30] MEDS ORDERED: HYDROmorphone 1 MG/ML 1 ML SYRINGE IVP STA (23:23)
[2021-07-30] MEDS ORDERED: HYDROmorphone 1 MG/ML 1 ML SYRINGE IVP PRN (23:23)
[2021-07-31] MEDS: SODIUM CHLORIDE 0.9% 1,000 ML IV SCH ×4 (01:15→20:08)
[2021-07-31] MEDS: PANTOPRAZOLE 40 MG/10 ML VIAL IV SCH ×2 (01:15→14:54)
[2021-07-31] MEDS ORDERED: ACETAMINOPHEN IV (For NPO) 1,000 MG in EMPTY BAG 1 BAG IVPB ONE (05:18)
[2021-07-31 07:06] LABS: Basophils % (A) 0 %; Eosinophils % (A) 0 %; HCT 40.5 % (39.0-53.0); HGB 13.3 gm/dL (13.0-17.5); Lymphocytes # (A) 0.4 k/uL (1.0-4.8); Lymphocytes % (A) 4 %; MCH 29.6 pg (25.0-35.0); MCHC 32.7 g/dL (31.0-37.0); MCV 90.5 fL (80.0-100.0); Mean Platelet Volume 6.8; Monocytes # (A) 0.2 k/uL (0-1.0); Monocytes % (A) 2 %; Neutrophils # (A) 8.9 k/uL (1.3-7.7); Neutrophils % (A) 93 %; Platelet Count 293 k/uL (150-450); RBC 4.48 m/uL (4.30-5.90); RDW 14.9 % (11.5-15.5); WBC 9.5 k/uL (3.8-10.6)
[2021-07-31 07:13] LABS: Appearance,Urine Clear (Clear); Bilirubin,Urine Negative (Negative); Blood,Urine Negative (Negative); Color,Urine Yellow; Glucose,Urine (UA) Negative (Negative); Ketones,Urine Negative (Negative); Leukocyte Esterase,Urine Negative (Negative); Nitrite,Urine Negative (Negative); PH, Urine 5.5 (5.0-8.0); Protein,Urine Trace (Negative)
[2021-07-31 07:17] LABS: Specific Gravity,Urine >1.050 (1.001-1.035)
[2021-07-31 07:23] LABS: ALT 27 U/L (4-49); AST 40 U/L (17-59); African American GFR (CKD) >90 (>60 ml/min/1.73 sqM); Albumin 3.8 g/dL (3.5-5.0); Alkaline Phosphatase 129 U/L (38-126); Anion Gap 9 mmol/L; Blood Urea Nitrogen 16 mg/dL (9-20); Calcium 8.7 mg/dL (8.4-10.2); Carbon Dioxide 31 mmol/L (22-30); Chloride 92 mmol/L (98-107); Glucose 118 mg/dL (74-99); Magnesium 1.8 mg/dL (1.6-2.3); Non-African American GFR(CKD) 89 (>60 ml/min/1.73 sqM); Phosphorus 4.1 mg/dL (2.5-4.5); Potassium 4.4 mmol/L (3.5-5.1); Sodium 132 mmol/L (137-145); Total Bilirubin 1.7 mg/dL (0.2-1.3); Total Protein 6.3 g/dL (6.3-8.2)
--- NOTE | 2021-07-31 08:57 | P.GSHP ---
History of Present Illness H&P Date: 07/31/21 CHIEF COMPLAINT: Small bowel obstruction HISTORY OF PRESENT ILLNESS: The patient is a 81 year old male who comes in with 3-4 day history of abdominal pain and swelling at the epigastrium. He has dec reased oral intake as a result. Patient is on methadone. He has pre-existing history of moderate cardiac disease. He takes Plavix and Coumadin. Last dose of Plavix and Coumadin was yesterday as confirmed by his over the telephone as patient has dementia. Due to severe abdominal pain, additional studies demonstrated bowel obstruction with his hernia. Patient is admitted for bowel obstruction. PAST MEDICAL HISTORY: See list and reviewed PAST SURGICAL HISTORY: See list and reviewed MEDICATIONS: See list and reviewed ALLERGIES: See list and reviewed SOCIAL HISTORY: See list and reviewed FAMILY HISTORY: See list and reviewed REVIEW OF ORGAN SYSTEMS: CONSTITUTIONAL: No fevers or chills. No recent weight loss. EYES: Denies any trouble with vision. Wears glasses. HEENT: Has difficulties with hearing. No nosebleeds. No difficulty swallowing. RESPIRATORY: Has chronic obstructive pulmonary disease due to past tobacco use. CARDIOVASCULAR: History of coronary artery disease with stent placement. Has atrial fibrillation. GASTROINTESTINAL: has constipation and change in bowel habits. Prior cholecystectomy. GENITOURINARY: Denies any blood in urine. Has increased urinary frequency with prostate disorder NEUROLOGICAL: Denies any numbness or tingling along the distal extremities. No seizure disorders or headaches. MUSCULOSKELETAL: Has back pain, stiffness or joint arthritis. Has chronic pain. SKIN: No current skin cancer. No rash. PSYCHIATRIC: Has depression. No suicidal thoughts. has anxiety. ENDOCRINE: Denies current thyroid disorders. Denies any blood sugar glucose intolerance. HEME/LYMPHATIC: Denies any lumps and bumps around the neck. on chronic antiplatelet therapy and chronic Coumadin. ALLERGY/IMMUNOLOGY: No immunoglobulin therapy. No immune deficiencies. BREAST: Denies current breast lumps, pain or nipple discharge. PHYSICAL EXAM: VITALS: Reviewed CONSTITUTIONAL: Well developed and in no acute distress. EYES: Conjuctivae without sclera icterus. Extraocular movements grossly intact. HEAD, EARS, NOSE, THROAT: Moist buccal mucosa. Head is atraumatic, normocephalic. Hard of hearing. No nasal drainage. NECK: Supple. No JV distention. No thyroidomegaly. RESPIRATORY: Non-labored respirations and equal bilateral excursions. No gross wheezes. CARDIOVASCULAR: Palpable 2+ radial pulses. ABDOMEN: Palpable firm 4 cm mass of the epigastrium at prior trocar incision site consistent with incarcerated incisional hernia. No skin changes. Tender. LYMPH: No neck lymphadenopathy. MUSCULOSKELETAL: Nail and fingers with good capillary refill. SKIN: Warm and well perfused with good skin turgor. NEUROLOGIC: Cranial nerves II through XII grossly intact. No focal or lateralizing signs. PSYCH: Appropriate affect. Alert and oriented to person, place and time. Displays appropriate insight. CLINCAL LABS: Reviewed. WBC normal 9.2. Hemoglobin 13.2 on admission. INR 1.7. Creatinine 0.7. IMAGING: Independently reviewed CT of the abdomen and pelvis demonstrates small bowel incarcerated within hernia with distal decompression. This is my independent interpretation. Right pleural effusion. Moderately dilated sto mach. RADIOLOGY: Report reviewed CT of the abdomen and pelvis with bowel obstruction, cardiomegaly, abdominal ascites. RECORDS: previous old records reviewed recent [facility] January. Left ventr icular size appears normal. There is global hypokinesis with ejection fraction 35-40%. ASSESSMENT: 1. Small bowel obstruction due to incarcerated incisional hernia 2. Congestive heart failure with hypertensive heart disease 3. Chronic antiplatelet, anticoagulation and recent turmeric use PLAN: 1. IV fluid hydration. 2. Patient is high risk. Medicine including cardiology consulted. 3. To mitigate risk robotic ventral hernia described with decrease risk of bleeding. 4. Type and screen obtained. 5. Benefits risks described to the patient and . 6. Inpatient hospitalization described greater than 2 nights. ADVANCE DIRECTIVE: Thank you for this kind consultation. Past Medical History Past Medical History: Atrial Fibrillation, COPD, Hearing Disorder / Deafness, Hyperlipidemia, Hypertension, Osteoarthritis (OA), Prostate Disorder, Thyroid Disorder Additional Past Medical History / Comment(s): BPH., O2 @ 2 L@ HS., CHRONIC BACK PAIN, CONSTIPATION, SOB W/ACTIVITY., edema lower legs & feet much improved History of Any Multi-Drug Resistant Organisms: None Reported Past Surgical History: Adenoidectomy, Appendectomy, Cholecystectomy, Heart Ca theterization With Stent, Joint Replacement, Tonsillectomy Additional Past Surgical History / Comment(s): TOTAL LEFT SHOULDER, TOTAL LEFT HIP, alexandro carpel tunnel, alexandro cataracts, TOTAL RIGHT SHOULDER ARTHROPLASTY 01-22-2017, Past Anesthesia/Blood Transfusion Reactions: Previous Problems w/ Anesthesia, Postoperative Nausea & Vomiting (PONV) Additional Past Anesthesia/Blood Transfusion Reaction / Comment(s): . Date of Last Stent Placement:: 01-02-21 Past Psychological History: Anxiety, Depression Smoking Status: Former smoker Past Alcohol Use History: None Reported Past Drug Use History: None Reported - Past Family History Mother Family Medical History: Congestive Heart Failure (CHF), Diabetes Mellitus Father Family Medical History: Cancer Additional Family Medical History / Comment(s): lung Brother(s) Family Medical History: COPD Medications and Allergies Home Medications Medication Instructions Recorded Confirmed Type Budesonide/Formoterol Fumarate 1 puff INHALATION RT-BID 05/03/15 07/31/21 His tory [Symbicort 160-4.5 Mcg Inhaler] DULoxetine HCL [Cymbalta] 60 mg PO BID@0900,1700 05/24/16 07/31/21 History Methadone [Dolophine] 7.5 mg PO TID@0700,1500,2300 05/24/16 07/31/21 History Moexipril HCl [Univasc] 15 mg PO DAILY@0900 05/24/16 07/31/21 History Dutasteride 0.5 mg PO DAILY@0900 09/06/17 07/31/21 History Cholecalciferol (Vitamin D3) 125 mcg PO DAILY@0700 12/30/20 07/31/21 History [Vitamin D3 (125 MCG = 5,000 IU)] Levothyroxine Sodium 200 mcg PO DAILY@0700 12/30/20 07/31/21 History Metoprolol Succinate (ER) [Toprol 25 mg PO HS@2300 12/30/20 07/31/21 History XL] Multivit-Min/Folic/Vit K/Lycop 1 tab PO DAILY@0900 12/30/20 07/31/21 History [Men's Multivitamin Tablet] Tamsulosin [Flomax] 0.4 mg PO BID@0700,1700 12/30/20 07/31/21 History Ubidecarenone [Co Q-10] 100 mg PO BID@0900,1700 12/30/20 07/31/21 History Zinc 50 mg PO W/SUPPER 12/30/20 07/31/21 History polyethylene glycoL 3350 [Miralax] 17 gm PO W/SUPPER 12/30/20 07/31/21 History Warfarin [Coumadin] 5 mg PO W/SUPPER 01/16/21 07/31/21 History Atorvastatin [Lipitor] 40 mg PO HS@1700 07/31/21 07/31/21 History Clopidogrel [Plavix] 75 mg PO DAILY@0900 07/31/21 07/31/21 History Ipratropium-Albuterol Nebulize 3 ml INHALATION RT-BID 07/31/21 07/31/21 History [Duoneb 0.5 mg-3 mg/3 ml Soln] Super Vitamin B 1 tab PO W/SUPPER 07/31/21 07/31/21 History Furosemide [Lasix] 80 mg PO BID #60 tablet 08/03/21 Rx Potassium Chloride ER [K-Dur 20] 20 meq PO BID #60 tab 08/03/21 Rx Allergies Allergy/AdvReac Type Severity Reaction Status Date / Time No Known Allergies Allergy Verified 07/31/21 07:47 Surgical - Exam Vital Signs Temp Pulse Resp BP Pulse Ox 98.1 F 92 18 128/77 98 07/30/21 21:02 07/30/21 21:02 07/30/21 21:02 07/30/21 21:02 07/30/21 21:02 Results - Labs 08/03/21 06:29 08/03/21 06:29 Abnormal Lab Results - Last 24 Hours (Table) 07/30/21 07/30/21 07/31/21 Range/Units 21:43 21:43 06:00 Neutrophils # 8.1 H (1.3-7.7) k/uL Lymphocytes # 0.7 L (1.0-4.8) k/uL Sodium 131 L (137-145) mmol/L Chloride 91 L (98-107) mmol/L Carbon Dioxide 32 H (22-30) mmol/L Glucose 128 H (74-99) mg/dL Total Bilirubin 1.5 H (0.2-1.3) mg/dL Alkaline Phosphatase 141 H (38-126) U/L Ur Specific [place] >1.050 H (1.001-1.035) Urine Protein Trace H (Negative) 07/31/21 07/31/21 Range/Units 06:00 06:00 Neutrophils # 8.9 H (1.3-7.7) k/uL Lymphocytes # 0.4 L (1.0-4.8) k/uL Sodium 132 L (137-145) mmol/L Chloride 92 L (98-107) mmol/L Carbon Dioxide 31 H (22-30) mmol/L Glucose 118 H (74-99) mg/dL Total Bilirubin 1.7 H (0.2-1.3) mg/dL Alkaline Phosphatase 129 H (38-126) U/L Ur Specific [place] (1.001-1.035) Urine Protein (Negative) Diabetes panel 07/30/21 07/31/21 Range/Units 21:43 06:00 Sodium 131 L 132 L (137-145) mmol/L Potassium 4.2 4.4 (3.5-5.1) mmol/L Chloride 91 L 92 L (98-107) mmol/L Carbon Dioxide 32 H 31 H (22-30) mmol/L BUN 15 16 (9-20) mg/dL Creatinine 0.71 0.68 (0.66-1.25) mg/dL Glucose 128 H 118 H (74-99) mg/dL Calcium 8.9 8.7 (8.4-10.2) mg/dL AST 38 40 (17-59) U/L ALT 27 27 (4-49) U/L Alkaline Phosphatase 141 H 129 H (38-126) U/L Total Protein 6.5 6.3 (6.3-8.2) g/dL Albumin 3.9 3.8 (3.5-5.0) g/dL Calcium panel 07/30/21 07/31/21 Range/Units 21:43 06:00 Calcium 8.9 8.7 (8.4-10.2) mg/dL Phosphorus 4.1 (2.5-4.5) mg/dL Albumin 3.9 3.8 (3.5-5.0) g/dL Pituitary panel 07/30/21 07/31/21 Range/Units 21:43 06:00 Sodium 131 L 132 L (137-145) mmol/L Potassium 4.2 4.4 (3.5-5.1) mmol/L Chloride 91 L 92 L (98-107) mmol/L Carbon Dioxide 32 H 31 H (22-30) mmol/L BUN 15 16 (9-20) mg/dL Creatinine 0.71 0.68 (0.66-1.25) mg/dL Glucose 128 H 118 H (74-99) mg/dL Calcium 8.9 8.7 (8.4-10.2) mg/dL Adrenal panel 07/30/21 07/31/21 Range/Units 21:43 06:00 Sodium 131 L 132 L (137-145) mmol/L Potassium 4.2 4.4 (3.5-5.1) mmol/L Chloride 91 L 92 L (98-107) mmol/L Carbon Dioxide 32 H 31 H (22-30) mmol/L BUN 15 16 (9-20) mg/dL Creatinine 0.71 0.68 (0.66-1.25) mg/dL Glucose 128 H 118 H (74-99) mg/dL Calcium 8.9 8.7 (8.4-10.2) mg/dL Total Bilirubin 1.5 H 1.7 H (0.2-1.3) mg/dL AST 38 40 (17-59) U/L ALT 27 27 (4-49) U/L Alkaline Phosphatase 141 H 129 H (38-126) U/L Total Protein 6.5 6.3 (6.3-8.2) g/dL Albumin 3.9 3.8 (3.5-5.0) g/dL
[2021-07-31] MEDS ORDERED: NALOXONE 0.4 MG/ML 1 ML VIAL IV PRN (08:58)
[2021-07-31 10:06] LABS: INR 1.7 (<1.2); Prothrombin Time 17.6 sec (9.0-12.0)
--- NOTE | 2021-07-31 10:12 | P.CONS ---
History of Present Illness - Reason for Consult Consult date: 07/31/21 Preoperative clearance and medical management Requesting physician: Kaylynn Juarez - History of Present Illness History of Presenting Illness: Patient is a very pleasant 81-year-old male with a past medical history of CAD with stents, chronic persistent atrial fibrillation on anticoagulation with Coumadin, hypertension, hyperlipidemia, hypothyroidism, and COPD. He presented to the emergency department secondary to abdominal pain 3 days progressively worsening. Patient reports approximately 3 days ago he began to notice some abdominal pain/discomfort, but states this waxed and waned a bit. He and his reports it wasn't until yesterday when they were out cutting the grass that he noticed his hernia popped and later in the evening the abdominal pain became severe so his brought him to the hospital. Patient denies ever experiencin g any nausea or vomiting and reports last bowel movement being approximately 3 or 4 days ago. Patient denies any recent infections or exposure to known ill contacts, fevers, chills, diaphoresis, chest pain, palpitations, shortness of breath, or any other complaints at this time. Patient underwent full evaluation in the emergency department. CT abdomen and pelvis revealed an incarcerated umbilical hernia with small bowel obstruction, cardiomegaly, and small pleural effusions.. Labs completed. CBC unremarkable. BMP revealing mild hyponatremia with sodium 132, hypochloremia with chloride of 92, and hypercarbia with carbon dioxide of 31. Patient did have slightly elevated bilirubin of 1.7 and alkaline phosphatase of 129. Urinalysis negative for infection. Patient's INR was subtherapeutic at 1.7. Patient's at bedside reports patient last took Plavix 07/30/21 around 8 AM and last took Coumadin 07/30/21 with dinner around 3:30 PM. Review of systems: Pertinent positives and negatives as discussed in HPI, a complete review of systems was performed and all other systems are negative. Physical exam: Vital signs reviewed and stable. General: Nontoxic, no distress and appears stated age. Derm: Skin warm and dry, normal coloration for ethnicity. Head: Atraumatic, normocephalic and symmetric. Eyes: EOMs intact, no lid lag, and anicteric sclera Mouth: no lip lesions, mucus membranes moist Cardiovascular: Irregularly irregular and rhythm with normal S1S2, systolic murmur, positive posterior tibial pulses bilaterally, and cap refill < 2 seconds. Lungs: Respirations even, regular, and unlabored on room air. Lungs CTA bilaterally, no rhonchi, no rales, no wheezing, and no accessory muscle usage. Abdominal: soft, nontender to palpation, no guarding, no appreciable organomegaly Ext: ROM intact. No gross muscle atrophy, no edema, no contractures Neuro: Speech clear, face symmetrical and CN II-XII grossly intact with no noted focal neuro deficits Psych: Alert and oriented to person, place, time, and situation. Appropriate and pleasant affect. Assessment and Plan of Care: Incarcerated umbilical hernia with small bowel obstruction Presurgical clearance -NSQUIP showing patient has an average risk of serious complications from procedure of 3.4% with national average of 3.6%, above average risk for cardiac complication with a 0.4% risk with national average of 0.3% in the below average risk of from 0.2%. -Patient is at an above average risk for surgical complications, however there are no absolute contraindications to undergo surgery from a medical standpoint at this time. -Gen. surgery managing, planning for surgical repair. -Continue to provide symptomatic care and pain management. -Maintain NPO status with gentle IV fluid hydration. Advancement of diet to be made by general surgery. Chronic persistent atrial fibrillation on anticoagulation with Coumadin History of CAD with stents Hyperlipidemia Hypertension -INR subtherapeutic at 1.7. Patient's at bedside reports patient last took Plavix 07/30/21 around 8 AM and last took Coumadin 07/30/21 with dinner around 3:30 PM. -Coumadin and Plavix held at this time, recommend resuming once cleared by primary admitting general surgery team. -Recommend holding Lasix while patient is NPO pending surgery and to resume once he is advanced to regular heart healthy diet. -Monitor vital signs and continue daily medication regimen with atorvastatin, lisinopril, and metoprolol. -Telemetry monitoring Chronic back pain -Recommend resuming methadone after surgical procedure is completed, will hold at this time secondary to patient undergoing surgery with anesthesia BPH -Continue Flomax and dutasteride. Hypothyroidism -Continue daily medication regimen with levothyroxine. Thank you for allowing us to participate in the care of this pleasant patient. Do not hesitate to contact us with questions. Someone can be reached from the [facility] hospitalist group all hours of the day at [phone] or via [employer].I reviewed the documentation as provided by the TAD above, who is the original author of this note. I agree with the documented assessment and plan, with the following changes: none Past Medical History Past Medical History: Atrial Fibrillation, COPD, Hearing Disorder / Deafness, Hyperlipidemia, Hypertension, Osteoarthritis (OA), Prostate Disorder, Thyroid Disorder Additional Past Medical History / Comment(s): BPH., O2 @ 2 L@ HS., CHRONIC BACK PAIN, CONSTIPATION, SOB W/ACTIVITY., edema lower legs & feet much improved History of Any Multi-Drug Resistant Organisms: None Reported Past Surgical History: Adenoidectomy, Appendectomy, Cholecystectomy, Heart Catheterization With Stent, Joint Replacement, Tonsillectomy Additional Past Surgical History / Comment(s): TOTAL LEFT SHOULDER, TOTAL LEFT HIP, alexandro carpel tunnel, alexandro cataracts, TOTAL RIGHT SHOULDER ARTHROPLASTY 01-22-2017, Past Anesthesia/Blood Transfusion Reactions: Previous Problems w/ Anesthesia, Postoperative Nausea & Vomiting (PONV) Additional Past Anesthesia/Blood Transfusion Reaction / Comm: . Date of Last Stent Placement:: 01-02-21 Past Psychological History: Anxiety, Depression Smoking Status: Former smoker Past Alcohol Use History: None Reported Past Drug Use History: None Reported - Past Family History Mother Family Medical History: Congestive Heart Failure (CHF), Diabetes Mellitus Father Family Medical History: Cancer Additional Family Medical History / Comment(s): lung Brother(s) Family Medical History: COPD Medications and Allergies Home Medications Medication Instructions Recorded Confirmed Type Budesonide/Formoterol Fumarate 1 puff INHALATION RT-BID 05/03/15 07/31/21 History [Symbicort 160-4.5 Mcg Inhaler] DULoxetine HCL [Cymbalta] 60 mg PO BID@0900,1700 05/24/16 07/31/21 History Methadone [Dolophine] 7.5 mg PO TID@0700,1500,2300 05/24/16 07/31/21 History Moexipril HCl [Univasc] 15 mg PO DAILY@0900 05/24/16 07/31/21 History Dutasteride 0.5 mg PO DAILY@0900 09/06/17 07/31/21 History Cholecalciferol (Vitamin D3) 125 mcg PO DAILY@0700 12/30/20 07/31/21 History [Vitamin D3 (125 MCG = 5,000 IU)] Levothyroxine Sodium 200 mcg PO DAILY@0700 12/30/20 07/31/21 History Metoprolol Succinate (ER) [Toprol 25 mg PO HS@2300 12/30/20 07/31/21 History XL] Multivit-Min/Folic/Vit K/Lycop 1 tab PO DAILY@0900 12/30/20 07/31/21 History [Men's Multivitamin Tablet] Tamsulosin [Flomax] 0.4 mg PO BID@0700,1700 12/30/20 07/31/21 History Turmeric Root Extract [Turmeric] 500 mg PO W/SUPPER 12/30/20 07/31/21 History Ubidecarenone [Co Q-10] 100 mg PO BID@0900,1700 12/30/20 07/31/21 History Zinc 50 mg PO W/SUPPER 12/30/20 07/31/21 History polyethylene glycoL 3350 [Miralax] 17 gm PO W/SUPPER 12/30/20 07/31/21 History Warfarin [Coumadin] 5 mg PO W/SUPPER 01/16/21 07/31/21 History Atorvastatin [Lipitor] 40 mg PO HS@1700 07/31/21 07/31/21 History Clopidogrel [Plavix] 75 mg PO DAILY@0900 07/31/21 07/31/21 History Furosemide [Lasix] 40 mg PO BID@0700,1500 07/31/21 07/31/21 History Ipratropium-Albuterol Nebulize 3 ml INHALATION RT-BID 07/31/21 07/31/21 History [Duoneb 0.5 mg-3 mg/3 ml Soln] Super Vitamin B 1 tab PO W/SUPPER 07/31/21 07/31/21 History Allergies Allergy/AdvReac Type Severity Reaction Status Date / Time No Known Allergies Allergy Verified 07/31/21 07:47 Physical Exam Osteopathic Statement: *. No significant issues noted on an osteopathic structural exam other than those noted in the History and Physical/Consult. Vitals: Vital Signs Temp Pulse Resp BP Pulse Ox 07/31/21 07:46 97.8 F 85 16 135/91 97 07/30/21 23:20 99 12 151/89 98 07/30/21 21:43 97.9 F 91 12 148/95 97 07/30/21 21:02 98.1 F 92 18 128/77 98 Intake and Output 07/30/21 07/31/21 07/31/21 22:59 06:59 14:59 Other: Voiding Method Toilet Weight 97.976 kg Results CBC & Chem 7: 07/31/21 06:00 07/31/21 06:00 Labs: Abnormal Lab Results - Last 24 Hours (Table) 07/30/21 07/30/21 07/31/21 Range/Units 21:43 21:43 06:00 Neutrophils # 8.1 H (1.3-7.7) k/uL Lymphocytes # 0.7 L (1.0-4.8) k/uL PT (9.0-12.0) sec INR (<1.2) Sodium 131 L (137-145) mmol/L Chloride 91 L (98-107) mmol/L Carbon Dioxide 32 H (22-30) mmol/L Glucose 128 H (74-99) mg/dL Total Bilirubin 1.5 H (0.2-1.3) mg/dL Alkaline Phosphatase 141 H (38-126) U/L Ur Specific [place] >1.050 H (1.001-1.035) Urine Protein Trace H (Negative) 07/31/21 07/31/21 07/31/21 Range/Units 06:00 06:00 09:58 Neutrophils # 8.9 H (1.3-7.7) k/uL Lymphocytes # 0.4 L (1.0-4.8) k/uL PT 17.6 H (9.0-12.0) sec INR 1.7 H (<1.2) Sodium 132 L (137-145) mmol/L Chloride 92 L (98-107) mmol/L Carbon Dioxide 31 H (22-30) mmol/L Glucose 118 H (74-99) mg/dL Total Bilirubin 1.7 H (0.2-1.3) mg/dL Alkaline Phosphatase 129 H (38-126) U/L Ur Specific [place] (1.001-1.035) Urine Protein (Negative)
--- NOTE | 2021-07-31 11:01 | P.CRDCN ---
History of Present Illness Consult reason: pre-op evaluation History of present illness: 81-year-old gentleman with history of persistent atrial fibrillation on long- term anticoagulation with Coumadin coronary artery disease status post angioplasty of LAD more than 6 months ago presented to hospital with symptoms of abdominal pain of 3 days' duration. He has an incarcerated ventral hernia and is to undergo surgery for the same. We have been consulted for preop cardiac evaluation. Patient is currently free of angina symptoms of heart failure. Patient underwent ZAK with a view to performing cardioversion was found to have intracardiac thrombus due to which the cardioversion was canceled. He does not have exertional chest pain shortness of breath PND or orthopnea. EKG shows atrial fibrillation with axis deviation and poor R-wave progression. Patient needs an urgent abdominal surgery. I do not see any contraindications at this time. Heart rate is well controlled. He is not in overt heart failure. Does not have any angina. Patient INR is subtherapeutic at 1.7. If necessary he may reverse the Coumadin. Please resume the anticoagulant after surgery as soon as it is feasible from surgical standpoint start him on IV heparin and then switch him to Coumadin. Constitutional: Denies chills. Denies fever. Eyes: Denies blurred vision. Denies pain. Ears, nose, mouth and throat: Denies headache. Denies sore throat. Cardiovascular: Denies chest pain. Denies shortness of breath. Respiratory: Denies cough. Gastrointestinal: Significant for abdominal pain Musculoskeletal: Denies myalgias. Integumentary: Denies pruritus. Denies rash. Neurological: Denies numbness. Denies weakness. Psychiatric: Denies anxiety. Denies depression. Endocrine: Denies fatigue. Denies weight change. Genitourinary: Denies burning, hematuria, frequency of urination. Hematological: No anemia or excess bleeding. General: The patient is awake and alert, in no distress, and does not appear acutely ill. Skin: Skin is warm and dry and no rashes or lesions are noted. Eye: Pupils are equal, round and reactive to light, extra-ocular movements are intact; there is normal conjunctiva bilaterally. Ears, nose, mouth and throat: There are moist mucous membranes and no oral lesions. Neck: The neck is supple, there is no tenderness or JVD. Cardiovascular: [ irregularly irregular.][ systolic murmur at the apex Respiratory: Lungs are clear to auscultation, respirations are non-labored, breath sounds are equal. Gastrointestinal: tender ventral hernia Back: There is no tenderness to palpation in the midline. There is no obvious deformity. Musculoskeletal: Normal ROM, no tenderness, There is no pedal edema. There is no calf tenderness or swelling. Extremities: mild leg edema Vascular: [Femoral pulse is normal.][ Posterior tibial pulses are normal .][Dorsalis pedis is palpable.] Neurological: CN II-XII intact. There are no obvious motor or sensory deficits. Speech is normal. Psychiatric: Cooperative, appropriate mood & affect, normal judgment. EKG shows atrial fibrillation left axis deviation and poor R-wave progression he has an ejection fraction of around 35-40% assessment and plan: Preop cardiac evaluation incarcerated abdominal wall hernia persistent atrial fibrillation with controlled ventricular rate CAD status post angioplasty no contraindications for surgery under anesthesia at this time patient is at moderately increased perioperative cardiac events he needs to undergo an emergent surgery . Patient is at increased risk for thromboembolic phenomenon as there is a history of intracardiac thrombus and we have to stop the anticoagulant his risk of stent thrombosis is low but not nonexistent as we stop the Plavix. Please resume the anticoagulant antiplatelet agents after surgery as is feasible from surgical standpoint consider starting IV heparin as we resume Coumadin Past Medical History Past Medical History: Atrial Fibrillation, COPD, Hearing Disorder / Deafness, Hyperlipidemia, Hypertension, Osteoarthritis (OA), Prostate Disorder, Thyroid Disorder Additional Past Medical History / Comment(s): BPH., O2 @ 2 L@ HS., CHRONIC BACK PAIN, CONSTIPATION, SOB W/ACTIVITY., edema lower legs & feet much improved History of Any Multi-Drug Resistant Organisms: None Reported Past Surgical History: Adenoidectomy, Appendectomy, Cholecystectomy, Heart Catheterization With Stent, Joint Replacement, Tonsillectomy Additional Past Surgical History / Comment(s): TOTAL LEFT SHOULDER, TOTAL LEFT HIP, alexandro carpel tunnel, alexandro cataracts, TOTAL RIGHT SHOULDER ARTHROPLASTY 01-22-2017, Past Anesthesia/Blood Transfusion Reactions: Previous Problems w/ Anesthesia, Postoperative Nausea & Vomiting (PONV) Additional Past Anesthesia/Blood Transfusion Reaction / Comment(s): . Date of Last Stent Placement:: 01-02-21 Past Psychological History: Anxiety, Depression Smoking Status: Former smoker Past Alcohol Use History: None Reported Past Drug Use History: None Reported - Past Family History Mother Family Medical History: Congestive Heart Failure (CHF), Diabetes Mellitus Father Family Medical History: Cancer Additional Family Medical History / Comment(s): lung Brother(s) Family Medical History: COPD Medications and Allergies Home Medications Medication Instructions Recorded Confirmed Type Budesonide/Formoterol Fumarate 1 puff INHALATION RT-BID 05/03/15 07/31/21 History [Symbicort 160-4.5 Mcg Inhaler] DULoxetine HCL [Cymbalta] 60 mg PO BID@0900,1700 05/24/16 07/31/21 History Methadone [Dolophine] 7.5 mg PO TID@0700,1500,2300 05/24/16 07/31/21 History Moexipril HCl [Univasc] 15 mg PO DAILY@0900 05/24/16 07/31/21 History Dutasteride 0.5 mg PO DAILY@0900 09/06/17 07/31/21 History Cholecalciferol (Vitamin D3) 125 mcg PO DAILY@0700 12/30/20 07/31/21 History [Vitamin D3 (125 MCG = 5,000 IU)] Levothyroxine Sodium 200 mcg PO DAILY@0700 12/30/20 07/31/21 History Metoprolol Succinate (ER) [Toprol 25 mg PO HS@2300 12/30/20 07/31/21 History XL] Multivit-Min/Folic/Vit K/Lycop 1 tab PO DAILY@0900 12/30/20 07/31/21 History [Men's Multivitamin Tablet] Tamsulosin [Flomax] 0.4 mg PO BID@0700,1700 12/30/20 07/31/21 History Turmeric Root Extract [Turmeric] 500 mg PO W/SUPPER 12/30/20 07/31/21 History Ubidecarenone [Co Q-10] 100 mg PO BID@0900,1700 12/30/20 07/31/21 History Zinc 50 mg PO W/SUPPER 12/30/20 07/31/21 History polyethylene glycoL 3350 [Miralax] 17 gm PO W/SUPPER 12/30/20 07/31/21 History Warfarin [Coumadin] 5 mg PO W/SUPPER 01/16/21 07/31/21 History Atorvastatin [Lipitor] 40 mg PO HS@1700 07/31/21 07/31/21 History Clopidogrel [Plavix] 75 mg PO DAILY@0900 07/31/21 07/31/21 History Furosemide [Lasix] 40 mg PO BID@0700,1500 07/31/21 07/31/21 History Ipratropium-Albuterol Nebulize 3 ml INHALATION RT-BID 07/31/21 07/31/21 History [Duoneb 0.5 mg-3 mg/3 ml Soln] Super Vitamin B 1 tab PO W/SUPPER 07/31/21 07/31/21 History Allergies Allergy/AdvReac Type Severity Reaction Status Date / Time No Known Allergies Allergy Verified 07/31/21 07:47 Physical Exam Vitals: Vital Signs Temp Pulse Resp BP Pulse Ox 07/31/21 07:46 97.8 F 85 16 135/91 97 07/30/21 23:20 99 12 151/89 98 07/30/21 21:43 97.9 F 91 12 148/95 97 07/30/21 21:02 98.1 F 92 18 128/77 98 Intake and Output 07/30/21 07/31/21 07/31/21 22:59 06:59 14:59 Other: Voiding Method Toilet Weight 97.976 kg Results 07/31/21 06:00 07/31/21 06:00 Cardiac Enzymes 07/30/21 07/31/21 Range/Units 21:43 06:00 AST 38 40 (17-59) U/L Coagulation 07/31/21 Range/Units 09:58 PT 17.6 H (9.0-12.0) sec CBC 07/30/21 07/31/21 Range/Units 21:43 06:00 WBC 9.2 9.5 (3.8-10.6) k/uL RBC 4.47 4.48 (4.30-5.90) m/uL Hgb 13.2 13.3 (13.0-17.5) gm/dL Hct 40.2 40.5 (39.0-53.0) % Plt Count 271 293 (150-450) k/uL Comprehensive Metabolic Panel 07/30/21 07/31/21 Range/Units 21:43 06:00 Sodium 131 L 132 L (137-145) mmol/L Potassium 4.2 4.4 (3.5-5.1) mmol/L Chloride 91 L 92 L (98-107) mmol/L Carbon Dioxide 32 H 31 H (22-30) mmol/L BUN 15 16 (9-20) mg/dL Creatinine 0.71 0.68 (0.66-1.25) mg/dL Glucose 128 H 118 H (74-99) mg/dL Calcium 8.9 8.7 (8.4-10.2) mg/dL AST 38 40 (17-59) U/L ALT 27 27 (4-49) U/L Alkaline Phosphatase 141 H 129 H (38-126) U/L Total Protein 6.5 6.3 (6.3-8.2) g/dL Albumin 3.9 3.8 (3.5-5.0) g/dL Current Medications Generic Name Dose Route Start Last Admin Trade Name Freq PRN Reason Stop Dose Admin Albuterol/Ipratropium 3 ml 07/31/21 20:00 Ipratropium-Albuterol 3 Ml Neb INHALATION RT-BID [facility] Atorvastatin Calcium 40 mg 07/31/21 17:00 Atorvastatin 40 Mg Tab PO HS@1700 [facility] Budesonide/Formoterol Fumarate 1 puff 07/31/21 20:00 Symbicort 160-4.5 Mcg Inhaler INHALATION RT-BID [facility] Cholecalciferol 125 mcg 08/01/21 07:00 Cholecalciferol 125 Mcg (5000 Iu) Tablet PO DAILY@0700 [facility] Duloxetine HCl 60 mg 07/31/21 17:00 Duloxetine Hcl 60 Mg Capsule.Dr PO BID@0900,1700 [facility] Heparin Sodium (Porcine) 5,000 unit 07/31/21 09:00 Heparin Sodium,Porcine/Pf 5,000 Unit/0.5 Ml Syringe SQ Q12HR DAINA Hydromorphone HCl 1 mg 07/30/21 23:23 Hydromorphone 1 Mg/Ml 1 Ml Syringe IVP Q4HR PRN Pain Sodium Chloride 1,000 mls @ 130 mls/hr 07/30/21 23:30 07/31/21 07:40 Saline 0.9% IV 130 mls/hr .[id number] DIANA Administration Levothyroxine Sodium 200 mcg 08/01/21 07:00 Levothyroxine 100 Mcg Tab PO DAILY@0700 [facility] Lisinopril 20 mg 08/01/21 09:00 Lisinopril 20 Mg Tab PO DAILY@0900 [facility] Metoprolol Succinate 25 mg 07/31/21 23:00 Metoprolol Succinate (Er) 25 Mg Tab.Er.24h PO HS@2300 [facility] Morphine Sulfate 4 mg 07/30/21 23:19 Morphine Sulfate 4 Mg/Ml Syringe IV Q4HR PRN Severe Pain Multivitamins 1 each 08/01/21 09:00 Multivitamins, Thera 1 Each Tab PO DAILY@0900 [facility] Naloxone HCl 0.2 mg 07/31/21 08:58 Naloxone 0.4 Mg/Ml 1 Ml Vial IV Q2M PRN Opioid Reversal Ondansetron HCl 4 mg 07/30/21 23:19 07/30/21 23:28 Ondansetron 4 Mg/2 Ml Vial IVP 4 mg Q8HR PRN Administration Nausea And Vomiting Pantoprazole Sodium 40 mg 07/30/21 23:30 07/31/21 01:15 Pantoprazole 40 Mg/10 Ml Vial IV 40 mg DAILY [facility] Administration Tamsulosin HCl 0.4 mg 07/31/21 17:00 Tamsulosin 0.4 Mg Cap.Er.24h PO BID@0700,1700 [facility] Intake and Output 07/30/21 07/31/21 07/31/21 22:59 06:59 14:59 Other: Voiding Method Toilet Weight 97.976 kg 07/31/21 06:00 07/31/21 06:00
--- NOTE | 2021-07-31 15:02 | CA ---
Transthoracic Echo Report Name: Dwayne Mercado Age: 81 Gender: M : 1940 Exam Date: 07/31/2021 14:01 Exam Location: [place] [facility] Ht (in): 72 Wt (lb): 216 Ordering Physician: Imelda Burkett Attending/Referring Phys: Preparation Room Manager Nicole Shaffer RDCS Procedure CPT: Indications: pre-op Cardiac Hx: Technical Quality: Fair Contrast 1: Total Dose (mL): Contrast 2: Total Dose (mL): MEASUREMENTS (Male / Female) Normal Values 2D ECHO LV Diastolic Diameter PLAX 4.9 cm 4.2 - 5.9 / 3.9 - 5.3 cm LV Systolic Diameter PLAX 4.6 cm IVS Diastolic Thickness 2.0 cm 0.6 - 1.0 / 0.6 - 0.9 cm LVPW Diastolic Thickness 1.8 cm 0.6 - 1.0 / 0.6 - 0.9 cm LV Relative Wall Thickness 0.8 LA Systolic Diameter LX 4.5 cm 3.0 - 4.0 / 2.7 - 3.8 cm LA Volume 122.6 cm??? 18 - 58 / 22 - 52 cm??? DOPPLER MV E' Velocity 2.6 cm/s TR Peak Velocity 203.5 cm/s TR Peak Gradient 16.6 mmHg Right Ventricular Systolic Press 21.6 mmHg FINDINGS Left Ventricle Left ventricular ejection fraction is estimated at 50-55 %.Severely increased left ventricular wall thickness. Right Ventricle Normal right ventricular size and function. Right Atrium Normal right atrial size. Left Atrium Mildly increased left atrial diameter. Severely increased left atrial volume. Mildly increased left atrial area. Mitral Valve Mild mitral regurgitation. Aortic Valve Aortic valve sclerosis. Tricuspid Valve Structurally normal tricuspid valve. Mild tricuspid regurgitation. Pulmonic Valve Structurally normal pulmonic valve. Pericardium Normal pericardium. Aorta Normal size aortic root and proximal ascending aorta. CONCLUSIONS Normal LV systolic function Hypokinetic basal inferior wall Left atrial enlargement Mild tricuspid regurgitation Previewed by: Dr. Servando Wilson MD (Electronically Signed) Final Date: 31 Jul 2021 15:02
--- NOTE | 2021-07-31 15:37 | XR ---
EXAMINATION TYPE: XR chest 1V portable DATE OF EXAM: 07/31/2021 COMPARISON: CT abdomen/pelvis 07/30/2021 and chest radiograph 05/28/2016 HISTORY: Gastric tube placement TECHNIQUE: Single frontal view of the chest is obtained. FINDINGS: Enteric tube is present which appears of diaphragmatic with tip overlying the left upper ab domen; however, the sidehole appears to be near or above the gastroesophageal junction. Mild enlargement of the cardiac silhouette. There is no focal air space opacity, pleural effusion, or pneumothorax seen. Partially visualized postsurgical changes of the bilateral shoulders. IMPRESSION: 1. Enteric tube appears subdiaphragmatic; however, the sidehole appears to be near or above the gastr oesophageal junction and recommend advancement by several centimeters. 2. Cardiomegaly.
[2021-07-31] MEDS ORDERED: fentaNYL (PF) 50 MCG/ML 2 ML AMP ONE (16:44)
[2021-07-31] MEDS ORDERED: NEOSTIGMINE 1 MG/ML 10 ML VIAL ONE (16:44)
[2021-07-31] MEDS ORDERED: ROCURONIUM 10 MG/ML (5 ML VIAL) IV ONE (16:44)
[2021-07-31] MEDS ORDERED: PROPOFOL 10 MG/ML 20 ML VIAL IV ONE (16:44)
[2021-07-31] MEDS ORDERED: INDOCYANINE GREEN 25 MG VIAL IV ONE (16:44)
[2021-07-31] MEDS ORDERED: GLYCOPYRROLATE 0.2 MG/ML 2 ML VIAL ONE (16:44)
[2021-07-31] MEDS ORDERED: SUCCINYLCHOLINE CHLORIDE 100 MG/5 ML SYR IV ONE (16:44)
[2021-07-31] MEDS ORDERED: LIDOCAINE 2% INJ 20 MG/ML (2 ML VIAL) ONE (16:44)
[2021-07-31] MEDS ORDERED: SODIUM CHLORIDE 0.9% 800 ML IV ONE (16:49)
[2021-07-31] MEDS ORDERED: SODIUM CHLORIDE 0.9% 50 ML with ceFAZolin 2,000 MG IV ONE ×2 (16:50)
[2021-07-31] MEDS ORDERED: ATORVASTATIN 40 MG TAB PO SCH (17:00)
[2021-07-31] MEDS ORDERED: BUPIVACAIN-EPI 0.25%-1:200,000 30 ML VIAL SQ ONE (17:19)
[2021-07-31] MEDS ORDERED: LACTATED RINGERS 1,000 ML IV ONE (17:57)
[2021-07-31] MEDS: DULoxetine HCL 60 MG CAPSULE.DR PO SCH (17:58)
[2021-07-31] MEDS: TAMSULOSIN 0.4 MG CAP.ER.24H PO SCH (17:58)
[2021-07-31] MEDS: HEPARIN SODIUM,PORCINE/PF 5,000 UNIT/0.5 ML SYRINGE SQ SCH ×2 (17:58→20:07)
--- NOTE | 2021-07-31 18:39 | P.OP ---
Date of Procedure: 07/31/21 Description of Procedure: SURGEON: DERIAN BARRON MD PREOPERATIVE DIAGNOSES: 1. Initial incarcerated incisional hernia with small bowel obstruction 2. Atrial fibrillation, chronic 3. Chronic anticoagulation 4. Chronic pain syndrome 5. Chronic antiplatelet use 6. Chronic obstructive pulmonary disease 7. Coronary artery disease with stent placement 8. Hypertensive heart disease with congestive heart failure 9. Sensorineural hearing loss 10. Hyperlipidemia 11. Benign prostatic hypertrophy with obstructive symptoms 12. Postoperative nausea and vomiting 13. Generalized anxiety disorder 14. Depressive disorder POSTOPERATIVE DIAGNOSES: 1. Initial incarcerated incisional hernia with small bowel obstruction 2. Atrial fibrillation, chronic 3. Chronic anticoagulation 4. Chronic pain syndrome 5. Chronic antiplatelet use 6. Chronic obstructive pulmonary disease 7. Coronary artery disease with stent placement 8. Hypertensive heart disease with congestive heart failure 9. Sensorineural hearing loss 10. Hyperlipidemia 11. Benign prostatic hypertrophy with obstructive symptoms 12. Postoperative nausea and vomiting 13. Generalized anxiety disorder 14. Depressive disorder OPERATION: 1. Robotic-assisted da Pato Xi laparoscopic reduction and repair of initial incarcerated incisional ventral hernia with mesh, ventralight ST mesh 11.4 cm Estimated Blood Loss (ml): 5 Pathology: Hernia sac Condition: stable Disposition: floor Operative Findings: 1. Incarcerated incisional hernia at the epigastrium containing small bowel 2. Indocyanine green loop confirms viable small bowel despite early ischemia 3. Resolution of bowel obstruction after reduction 4. Hernia defect 3 cm resected hernia sac and oversewn # 1V LOC 5. No inguinal hernias identified INDICATIONS: The patient is a 81-year-old male who presents acutely with small bowel obstruction due to incarcerated incisional hernia. Cardiac risk assessment was obtained. Surgical intervention with laparoscopic versus robotic and open techniques were reviewed. Placement of mesh was also reviewed. Benefits and risks were thoroughly described. Informed consent was obtained. DESCRIPTION OF PROCEDURE: The patient was brought into the operating room and laid in supine position. A nasogastric tube was previously placed. After general induction, the abdomen had been prepped and draped in standard sterile fashion. Ioban draping was also placed. Prior to incision, a timeout protocol was confirmed with surgical team regarding the patient's name including procedures to be performed. The robot was primed prior to the procedure. A field block using local anesthetic was placed along hernia site including the proposed port sites. Initial incision was made with an #11 blade along the left upper quadrant. A 0 degree 5 mm laparoscopic trocar entry was performed and insufflated. Three 8 mm ports were placed along the left lateral abdominal wall under direct lo calization after exchanging the 5-mm for an 8 mm port. Placements of the ports were 15 cm from the target anatomy and 10 cm apart. An accessory 12 mm port was placed at the left upper quadrant for exchange of mesh including sutures. The [email or web address] robot was previously primed, prepped and draped then docked from the left side of the patient onto the left side of the patient. I then sat at the robot Da Pato Xi console where working arms of the robot including Bovie cautery connected to robotic scissors, needle straddle bug driver, and graspers placed by the environmental assistant. Diagnostic laparoscopy demonstrated small bowel dilation proximal to the incarcerated hernia. Distally, small bowel was decompressed. The small bowel was incarcerated in a ventral incisional trocar hernia as he had prior laparosc opic cholecystectomy. Despite abdominal pressure externally, the content could not be reduced. With steady internal retraction of the small bowel into the abdomen, complete reduction of the small bowel occurred. The incarcerated bowel involving distal jejunal was ischemic however not necrotic. Indocyanine green was administered by the reconciliation coordinator confirming complete viability of the small bowel. The hernia sac was resected to reveal the fascial defect. Upper midline fascial defect 3 x 3 cm was found. The incarcerated contents were reduced as the peritoneal fat was cleaned from the abdominal wall. Next, hemostasis was checked with cautery. The hernia defect was oversewn using #1 nonabsorbable V-lock suture with fascial imbrication x 2. Next, ventralight ST mesh 11.4 cm was placed with the rough side towards the abdominal wall as to cover the fascial defect as an underlay. 2-0 VLOC 9 inch sutures were used to fixate the mesh. A final endoscopic imaging was obtained. All instruments and pneumoperitoneum were evacuated from the abdominal cavity. The da Pato Xi robot was undocked from the patient. I re-scrubbed into the case for closure of incisions. The fascia of the 12-mm port was probed and closed using 0 Vicryl and Pipo Amaya. The incisions were reapproximated using 4-0 Monocryl in an interrupted subcuticular fashion. Liquid glue was applied to the skin after cleansing the skin with normal saline and dilute hydrogen peroxide. An abdominal binder was placed. At the end of the procedure, needle, sponge, and instrument count had been verified correct by senior manufacturing technician. The patient was taken to the postanesthesia care unit in stable condition. The patient's was pleased with the level of care.
[2021-07-31] MEDS: IPRATROPIUM-ALBUTEROL 3 ML NEB INHALATION SCH (21:08)
[2021-07-31] MEDS: SYMBICORT 160-4.5 MCG INHALER INHALATION SCH (21:08)
[2021-07-31] MEDS: METOPROLOL SUCCINATE (ER) 25 MG TAB.ER.24H PO SCH (23:29)
[2021-07-31] MEDS: ACETAMINOPHEN TAB 500 MG TAB PO SCH (23:29)
[2021-08-01] MEDS: ACETAMINOPHEN TAB 500 MG TAB PO SCH ×3 (05:51→17:33)
[2021-08-01] MEDS: TAMSULOSIN 0.4 MG CAP.ER.24H PO SCH ×2 (05:51→16:33)
[2021-08-01] MEDS: LEVOTHYROXINE 100 MCG TAB PO SCH (05:51)
[2021-08-01] MEDS ORDERED: CHOLECALCIFEROL 125 MCG (5000 IU) TABLET PO SCH (07:00)
[2021-08-01] MEDS: SODIUM CHLORIDE 0.9% 1,000 ML IV SCH ×3 (08:04→18:17)
[2021-08-01] MEDS: PANTOPRAZOLE 40 MG/10 ML VIAL IV SCH (08:05)
[2021-08-01] MEDS: IPRATROPIUM-ALBUTEROL 3 ML NEB INHALATION SCH ×2 (08:10→19:59)
[2021-08-01] MEDS: SYMBICORT 160-4.5 MCG INHALER INHALATION SCH ×2 (08:13→19:59)
[2021-08-01] MEDS: PIPERACILLIN-TAZOBACTAM 3.375 GM in SODIUM CHLORIDE 0.9% 100 ML IVPB SCH ×2 (08:55→16:33)
[2021-08-01] MEDS: DULoxetine HCL 60 MG CAPSULE.DR PO SCH ×2 (08:55→16:33)
[2021-08-01] MEDS: FINASTERIDE 5 MG TAB PO SCH (08:55)
[2021-08-01] MEDS: lisinopriL 20 MG TAB PO SCH (08:55)
[2021-08-01] MEDS: HEPARIN SODIUM,PORCINE/PF 5,000 UNIT/0.5 ML SYRINGE SQ SCH ×2 (08:55→20:33)
[2021-08-01 08:57] LABS: Basophils # (A) 0.02 X 10*3/uL (0.00-0.10); Basophils % (A) 0.2 %; Eosinophils # (A) 0.01 X 10*3/uL (0.04-0.35); Eosinophils % (A) 0.1 %; HCT 35.6 % (39.6-50.0); HGB 11.3 g/dL (13.0-17.0); Immature Grans, Automated 0.5 %; Lymphocytes % (A) 10.6 %; MCH 28.1 pg (27.0-32.0); MCHC 31.7 g/dL (32.0-37.0); MCV 88.6 fL (80.0-97.0); Mean Platelet Volume 9.3 fL (9.5-12.2); Monocytes # (A) 0.81 X 10*3/uL (0.20-1.00); Monocytes % (A) 8.6 %; NRBC Per 100 WBC 0 /100 WBCS (0.0-0.0); Neutrophils # (A) 7.58 X 10*3/uL (1.80-7.70); Platelet Count 258 X 10*3/uL (140-440); RBC 4.02 X 10*6/uL (4.40-5.60); RDW 14.9 % (11.5-14.5); WBC 9.47 X 10*3/uL (4.50-10.00)
[2021-08-01] MEDS ORDERED: MULTIVITAMINS, THERA 1 EACH TAB PO SCH (09:00)
[2021-08-01 09:26] LABS: African American GFR (CKD) 91.5 (60.0-200.0); Anion Gap 9.7 mmol/L (10.00-18.00); BUN/Creat Ratio 18.27 Ratio (12.00-20.00); Blood Urea Nitrogen 16.5 mg/dL (9.0-27.0); Calcium 8.3 mg/dL (8.7-10.3); Carbon Dioxide 26.4 mmol/L (20.0-27.5); Non-African American GFR(CKD) 78.9 (60.0-200.0); Potassium 4.4 mmol/L (3.5-5.5)
--- NOTE | 2021-08-01 11:37 | P.PN ---
Subjective 81-year-old gentleman with history of persistent atrial fibrillation on long- term anticoagulation with Coumadin coronary artery disease status post angioplasty of LAD more than 6 months ago presented to hospital with symptoms of abdominal pain of 3 days' duration. He has an incarcerated ventral hernia and is to undergo surgery for the same. We have been consulted for preop cardiac evaluation. Patient is currently free of angina symptoms of heart failure. Patient underwent ZAK with a view to performing cardioversion was found to have intracardiac thrombus due to which the cardioversion was canceled. He does not have exertional chest pain shortness of breath PND or orthopnea. EKG shows atrial fibrillation with axis deviation and poor R-wave progression. Patient needs an urgent abdominal surgery. I do not see any contraindications at this time. Heart rate is well controlled. He is not in overt heart failure. Does not have any angina. Patient INR is subtherapeutic at 1.7. If necessary he may reverse the Coumadin. Please resume the anticoagulant after surgery as soon as it is feasible from surgical standpoint start him on IV heparin and then switch him to Coumadin. 08/01 Patient underwent robotic-assisted hernia surgery with mesh placement and has been doing well since. He denies any chest pain or pressure. Abdomen is still mildly sore. Tolerating diet. INR yesterday 1.7. His Plavix has been held. General: The patient is awake and alert, in no distress, and does not appear acutely ill. Skin: Skin is warm and dry and no rashes or lesions are noted. Eye: Pupils are equal, round and reactive to light, extra-ocular movements are intact; there is normal conjunctiva bilaterally. Ears, nose, mouth and throat: There are moist mucous membranes and no oral lesions. Neck: The neck is supple, there is no tenderness or JVD. Cardiovascular: [ irregularly irregular.][ systolic murmur at the apex Respiratory: Lungs are clear to auscultation, respirations are non-labored, breath sounds are equal. Gastrointestinal: tender ventral hernia Back: There is no tenderness to palpation in the midline. There is no obvious deformity. Musculoskeletal: Normal ROM, no tenderness, There is no pedal edema. There is no calf tenderness or swelling. Extremities: Trace leg edema Neurological: CN II-XII intact. There are no obvious motor or sensory deficits. Speech is normal. Psychiatric: Cooperative, appropriate mood & affect, normal judgment. EKG shows atrial fibrillation left axis deviation and poor R-wave progression he has an ejection fraction of around 35-40% assessment and plan: Preop cardiac evaluation incarcerated abdominal wall hernia persistent atrial fibrillation with controlled ventricular rate CAD status post angioplasty Chronic systolic heart failure EF 35-40% Patient appears to be recovering from his surgery. Restart Plavix when okay with surgery. Restart Coumadin, no need for heparin given nearly therapeutic at 1.7. Continue with the remainder of heart failure regimen with lisinopril and metoprolol. Objective - Vital Signs Vital signs: Vital Signs Temp 98.0 F 08/01/21 07:25 Pulse 97 08/01/21 08:20 Resp 17 08/01/21 07:25 BP 123/70 08/01/21 07:25 Pulse Ox 98 08/01/21 08:10 FiO2 Intake & Output 07/31/21 08/01/21 08/01/21 18:59 06:59 18:59 Intake Total 1050 150 Output Total 1455 400 Balance -405 -250 Weight 97.976 kg Intake: IV 1050 150 Output: Gastric Drainage 1000 Urine 450 400 Estimated Blood Loss 5 Other: Voiding Method Indwelling Catheter Indwelling Catheter - Labs CBC & Chem 7: 08/01/21 05:55 08/01/21 05:55 Labs: Abnormal Lab Results - Last 24 Hours (Table) 08/01/21 08/01/21 Range/Units 05:55 05:55 RBC 4.02 L (4.40-5.60) X 10*6/uL Hgb 11.3 L (13.0-17.0) g/dL Hct 35.6 L (39.6-50.0) % MCHC 31.7 L (32.0-37.0) g/dL RDW 14.9 H (11.5-14.5) % MPV 9.3 L (9.5-12.2) fL Immature Gran # 0.05 H (0.00-0.04) X 10*3/uL Eosinophils # 0.01 L (0.04-0.35) X 10*3/uL Anion Gap 9.70 L (10.00-18.00) mmol/L Calcium 8.3 L (8.7-10.3) mg/dL
--- NOTE | 2021-08-01 14:12 | P.PN ---
Subjective Progress Note Date: 08/01/21 CHIEF COMPLAINT: Incarcerated incisional hernia with bowel obstruction HISTORY OF PRESENT ILLNESS: The patient is postop day #1 status post Robotic repair of incarcerated incisional hernia using ventral ST mesh. Patient is requiring IV pain medication. He is on methadone at home. Reports the Tylenol is lasting long enough. He is tolerating low fiber diet. No bowel activity. Afebrile. WBC is 9.47 hemoglobin 11.3 platelets 258 INR 1.7 sodium 135 potassium 4.4 creatinine 0.9 PHYSICAL EXAM: VITAL SIGNS: Reviewed GENERAL: Well-developed in no acute distress. HEENT: No sclera icterus. Extraocular movements grossly intact. Moist buccal mucosa. Head is atraumatic, normocephalic. Hears conversational speech. No nasal drainage. NECK: Supple without lymphadenopathy. CHEST: Non-labored respirations and equal bilateral excursions. CARDIOVASCULAR: Palpable 2+ radial pulses. ABDOMEN: Soft. Nondistended. MUSCULOSKELETAL: No clubbing or cyanosis. NEUROLOGIC: No focal or lateralizing signs. Cranial nerves II through XII grossly intact. PSYCH: Appropriate affect. Alert and oriented to person, place and time. SKIN: Well perfused. Good skin turgor. ASSESSMENT: 1. Incarcerated incisional hernia with bowel obstruction status post Robotic repair of incarcerated incisional hernia with mesh PLAN: -Would recommend to hold off restarting Coumadin for another 24 hours. Patient did have a slight drop in his hemoglobin. We'll repeat CBC in a.m. -Continue to hold Plavix -Add Toradol for pain -Discontinue Rogers catheter -Encouraged patient to increase activity level -Continue low fiber diet Physician Disability Coordinator note has been reviewed by physician. Signing provider agrees with the documented findings, assessment, and plan of care. As above. Patient had recent surgery including high risk of bleeding with Plavix Coumadin. Recommend 24-hour stable CBC prior to start of Coumadin and anticoagulants. Objective - Vital Signs Vital signs: Vital Signs Temp 97.7 F 08/01/21 13:43 Pulse 87 08/01/21 13:43 Resp 18 08/01/21 13:43 BP 116/73 08/01/21 13:43 Pulse Ox 100 08/01/21 13:43 FiO2 Intake & Output 07/31/21 08/01/21 08/01/21 18:59 06:59 18:59 Intake Total 1050 150 Output Total 1456 400 Balance -405 -250 Weight 97.976 kg Intake: IV 1050 150 Output: Gastric Drainage 1000 Urine 450 400 Estimated Blood Loss 5 Other: Voiding Method Indwelling Catheter Indwelling Catheter - Labs CBC & Chem 7: 08/03/21 06:29 08/03/21 06:29 Labs: Abnormal Lab Results - Last 24 Hours (Table) 08/01/21 08/01/21 Range/Units 05:55 05:55 RBC 4.02 L (4.40-5.60) X 10*6/uL Hgb 11.3 L (13.0-17.0) g/dL Hct 35.6 L (39.6-50.0) % MCHC 31.7 L (32.0-37.0) g/dL RDW 14.9 H (11.5-14.5) % MPV 9.3 L (9.5-12.2) fL Immature Gran # 0.05 H (0.00-0.04) X 10*3/uL Eosinophils # 0.01 L (0.04-0.35) X 10*3/uL Anion Gap 9.70 L (10.00-18.00) mmol/L Calcium 8.3 L (8.7-10.3) mg/dL
[2021-08-01] MEDS: KETOROLAC 15 MG/ML 1 ML VIAL IVP SCH ×2 (14:17→18:15)
[2021-08-01] MEDS: METHADONE 5 MG TAB PO SCH ×2 (17:05→22:53)
--- NOTE | 2021-08-01 17:17 | P.PN ---
Progress Note - Text Progress Note Date: 08/01/21 Incarcerated incisional hernia with bowel obstruction. Patient underwent robotic repair of incarcerated incisional hernia and the mesh was placed. By Dr. Dominguez August 01: I assumed care of the patient today. Patient up in a chair. Rogers catheter was discontinued. No nausea vomiting. No flatus. On clear liquids. Home dose of Lasix methadone resumed. Active Medications Acetaminophen (Acetaminophen Tab 500 Mg Tab) 1,000 mg PO Q6HR [facility] Last Admin: 08/01/21 11:24 Dose: 1,000 mg Albuterol/Ipratropium (Ipratropium-Albuterol 3 Ml Neb) 3 ml INHALATION RT-BID [facility] Last Admin: 08/01/21 08:10 Dose: 3 ml Budesonide/Formoterol Fumarate (Symbicort 160-4.5 Mcg Inhaler) 1 puff INHALATION RT-BID [facility] Last Admin: 08/01/21 08:13 Dose: 1 puff Duloxetine HCl (Duloxetine Hcl 60 Mg Capsule.) 60 mg PO BID@0900,1700 [facility] Last Admin: 08/01/21 16:33 Dose: 60 mg Finasteride (Finasteride 5 Mg Tab) 5 mg PO DAILY@0900 [facility] Last Admin: 08/01/21 08:55 Dose: 5 mg Furosemide (Furosemide 40 Mg Tab) 40 mg PO BID@0700,1500 [facility] Heparin Sodium (Porcine) (Heparin Sodium,Porcine/Pf 5,000 Unit/0.5 Ml Syringe) 5,000 unit SQ Q12HR [facility] Hydromorphone HCl (Hydromorphone 1 Mg/Ml 1 Ml Syringe) 1 mg IVP Q4HR PRN PRN Reason: Pain Sodium Chloride (Saline 0.9%) 1,000 mls @ 130 mls/hr IV .Q7H42M [facility] Last Admin: 08/01/21 11:26 Dose: 130 mls/hr Piperacillin Sod/Tazobactam (Sod 3.375 gm/ Sodium Chloride) 100 mls @ 25 mls/hr IVPB Q8HR [facility]; Protocol Last Admin: 08/01/21 16:33 Dose: 25 mls/hr Ketorolac Tromethamine (Ketorolac 15 Mg/Ml 1 Ml Vial) 15 mg IVP Q6HR [facility] Stop: 08/04/21 13:31 Last Admin: 08/01/21 14:17 Dose: 15 mg Levothyroxine Sodium (Levothyroxine 100 Mcg Tab) 200 mcg PO DAILY@0700 [facility] Last Admin: 08/01/21 05:51 Dose: 200 mcg Lisinopril (Lisinopril 20 Mg Tab) 20 mg PO DAILY@0900 [facility] Last Admin: 08/01/21 08:55 Dose: 20 mg Methadone HCl (Methadone 5 Mg Tab) 7.5 mg PO TID@0700,1500,2300 [facility] Metoprolol Succinate (Metoprolol Succinate (Er) 25 Mg Tab.Er.24h) 25 mg PO HS@2300 [facility] Last Admin: 07/31/21 23:29 Dose: 25 mg Morphine Sulfate (Morphine Sulfate 4 Mg/Ml Syringe) 4 mg IV Q4HR PRN PRN Reason: Severe Pain Last Admin: 08/01/21 08:12 Dose: 4 mg Naloxone HCl (Naloxone 0.4 Mg/Ml 1 Ml Vial) 0.2 mg IV Q2M PRN PRN Reason: Opioid Reversal Ondansetron HCl (Ondansetron 4 Mg/2 Ml Vial) 4 mg IVP Q8HR PRN PRN Reason: Nausea And Vomiting Last Admin: 07/30/21 23:28 Dose: 4 mg Pantoprazole Sodium (Pantoprazole 40 Mg/10 Ml Vial) 40 mg IV DAILY [facility] Last Admin: 08/01/21 08:05 Dose: 40 mg Tamsulosin HCl (Tamsulosin 0.4 Mg Cap.Er.24h) 0.4 mg PO BID@0700,1700 [facility] Last Admin: 08/01/21 16:33 Dose: 0.4 mg On examination: VITAL SIGNS: [97.7, 87, 18, 116.73, 100% on 2 L] GENERAL APPEARANCE: Sitting up in a chair, awake, comfortable. HEENT: Normal external appearance of nose and ear. Oral cavity normal EYES: Pupils equal. Conjunctiva normal. NECK: JVD not raised. Mass not palpable. RESPIRATORY: Respiratory effort normal. Lungs clear to auscultation. CARDIOVASCULAR: First and second sounds normal. No edema. ABDOMEN: Soft. Mild tenderness. Liver and spleen not palpable. No tenderness. No mass palpable. PSYCHIATRY: Alert and oriented x3. Mood and affect normal. INVESTIGATIONS, reviewed in the clinical context: White count 9.4 hemoglobin 11.3 platelets 258 potassium 4.4 creatinine 0.9 2-D echocardiogram: EF 50-55% Assessment and plan: -Incarcerated incisional hernia with bowel obstruction Robotic repair of above using Benadryl ST mesh by Dr. Dominguez on July 31 -Persistent atrial fibrillation Toprol-XL 25 mg daily at bedtime. 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 DuoNeb twice a day -Depression and anxiety Cymbalta 60 mg twice a day -Hyperlipidemia Lipitor 40 mg daily at bedtime -Essential hypertension Toprol-XL 25 mg daily at bedtime. Univasc 15 mg daily -Primary osteoarthritis -BPH Budesonide 0.5 mg daily -Chronic hypoxic respiratory failure 2 L of oxygen at home -Hypothyroid Synthroid 200 g daily - Telemetry. Resume methadone and Lasix. Cutback IV fluids 50 mL an hour. Diet being advanced per surgery. Discussed with patient..
[2021-08-01] MEDS ORDERED: WARFARIN 5 MG TAB PO ONE (18:00)
[2021-08-01] MEDS: METOPROLOL SUCCINATE (ER) 25 MG TAB.ER.24H PO SCH (22:53)
[2021-08-02] MEDS: KETOROLAC 15 MG/ML 1 ML VIAL IVP SCH ×5 (00:36→23:59)
[2021-08-02] MEDS: ACETAMINOPHEN TAB 500 MG TAB PO SCH ×5 (00:36→23:59)
[2021-08-02] MEDS: PIPERACILLIN-TAZOBACTAM 3.375 GM in SODIUM CHLORIDE 0.9% 100 ML IVPB SCH ×4 (00:37→23:59)
[2021-08-02 06:30] LABS: Prothrombin Time 19.8 sec (9.0-12.0)
[2021-08-02] MEDS ORDERED: FUROSEMIDE 40 MG TAB PO SCH (07:00)
[2021-08-02] MEDS: IPRATROPIUM-ALBUTEROL 3 ML NEB INHALATION SCH ×2 (08:29→20:35)
[2021-08-02] MEDS: SYMBICORT 160-4.5 MCG INHALER INHALATION SCH ×2 (08:29→20:35)
[2021-08-02] MEDS: METHADONE 5 MG TAB PO SCH ×3 (08:56→22:35)
[2021-08-02] MEDS: TAMSULOSIN 0.4 MG CAP.ER.24H PO SCH ×2 (08:57→17:03)
[2021-08-02] MEDS: FINASTERIDE 5 MG TAB PO SCH (08:57)
[2021-08-02] MEDS: LEVOTHYROXINE 100 MCG TAB PO SCH (08:57)
[2021-08-02] MEDS: HEPARIN SODIUM,PORCINE/PF 5,000 UNIT/0.5 ML SYRINGE SQ SCH ×2 (08:57→21:07)
[2021-08-02] MEDS: lisinopriL 20 MG TAB PO SCH (08:58)
[2021-08-02] MEDS: DULoxetine HCL 60 MG CAPSULE.DR PO SCH ×2 (08:58→17:03)
[2021-08-02 09:10] LABS: HCT 32.8 % (39.6-50.0); HGB 10.6 g/dL (13.0-17.0); MCH 28.9 pg (27.0-32.0); MCHC 32.3 g/dL (32.0-37.0); MCV 89.4 fL (80.0-97.0); NRBC Per 100 WBC 0 /100 WBCS (0.0-0.0); Platelet Count 198 X 10*3/uL (140-440); RBC 3.67 X 10*6/uL (4.40-5.60); RDW 14.9 % (11.5-14.5); WBC 7.08 X 10*3/uL (4.50-10.00)
[2021-08-02] MEDS: PANTOPRAZOLE 40 MG/10 ML VIAL IV SCH (10:27)
[2021-08-02] MEDS: SODIUM CHLORIDE 0.9% 1,000 ML IV SCH (12:56)
[2021-08-02 13:24] LABS: Basophils % (A) 0 %; Eosinophils # (A) 0.1 k/uL (0-0.7); Eosinophils % (A) 1 %; HCT 34.8 % (39.0-53.0); HGB 11.4 gm/dL (13.0-17.5); Lymphocytes # (A) 0.8 k/uL (1.0-4.8); Lymphocytes % (A) 12 %; MCH 29.6 pg (25.0-35.0); MCHC 32.8 g/dL (31.0-37.0); MCV 90.3 fL (80.0-100.0); Monocytes # (A) 0.4 k/uL (0-1.0); Monocytes % (A) 5 %; Neutrophils # (A) 5.6 k/uL (1.3-7.7); Neutrophils % (A) 81 %; Platelet Count 248 k/uL (150-450); RBC 3.86 m/uL (4.30-5.90); RDW 14.6 % (11.5-15.5); WBC 6.9 k/uL (3.8-10.6)
--- NOTE | 2021-08-02 13:24 | P.PN ---
Subjective 81-year-old gentleman with history of persistent atrial fibrillation on long- term anticoagulation with Coumadin coronary artery disease status post angioplasty of LAD more than 6 months ago presented to hospital with symptoms of abdominal pain of 3 days' duration. He has an incarcerated ventral hernia and is to undergo surgery for the same. We have been consulted for preop cardiac evaluation. Patient is currently free of angina symptoms of heart failure. Patient underwent ZAK with a view to performing cardioversion was found to have intracardiac thrombus due to which the cardioversion was canceled. He does not have exertional chest pain shortness of breath PND or orthopnea. EKG shows atrial fibrillation with axis deviation and poor R-wave progression. Patient needs an urgent abdominal surgery. I do not see any contraindications at this time. Heart rate is well controlled. He is not in overt heart failure. Does not have any angina. Patient INR is subtherapeutic at 1.7. If necessary he may reverse the Coumadin. Please resume the anticoagulant after surgery as soon as it is feasible from surgical standpoint start him on IV heparin and then switch him to Coumadin. 08/01 Patient underwent robotic-assisted hernia surgery with mesh placement and has been doing well since. He denies any chest pain or pressure. Abdomen is still mildly sore. Tolerating diet. INR yesterday 1.7. His Plavix has been held. 08/02 Patient seen and examined. He states he has been doing fairly well. Still does have significant lower extremity edema. Creatinine has remained stable. Blood pressures stable. General: The patient is awake and alert, in no distress, and does not appear acutely ill. Skin: Skin is warm and dry and no rashes or lesions are noted. Eye: Pupils are equal, round and reactive to light, extra-ocular movements are intact; there is normal conjunctiva bilaterally. Ears, nose, mouth and throat: There are moist mucous membranes and no oral lesions. Neck: The neck is supple, there is no tenderness or JVD. Cardiovascular: [ irregularly irregular.][ systolic murmur at the apex Respiratory: Lungs are clear to auscultation, respirations are non-labored, breath sounds are equal. Gastrointestinal: tender ventral hernia Back: There is no tenderness to palpation in the midline. There is no obvious deformity. Musculoskeletal: Normal ROM, no tenderness, There is 2+ LE edema. There is no calf tenderness or swelling. Extremities: Trace leg edema Neurological: CN II-XII intact. There are no obvious motor or sensory deficits. Speech is normal. Psychiatric: Cooperative, appropriate mood & affect, normal judgment. EKG shows atrial fibrillation left axis deviation and poor R-wave progression he has an ejection fraction of around 35-40% assessment and plan: Preop cardiac evaluation incarcerated abdominal wall hernia persistent atrial fibrillation with controlled ventricular rate CAD status post angioplasty Acute on chronic systolic heart failure EF 35-40% Patient appears to be recovering from his surgery. Restart Plavix when okay with surgery. Continue with the remainder of heart failure regimen with lisinopril and metoprolol. He does appear volume overloaded and we will start IV Lasix. Objective - Vital Signs Vital signs: Vital Signs Temp 98.2 F 08/02/21 07:25 Pulse 88 08/02/21 08:43 Resp 16 08/02/21 08:43 BP 120/75 08/02/21 07:25 Pulse Ox 96 08/02/21 08:30 FiO2 Intake & Output 08/01/21 08/02/21 08/02/21 18:59 06:59 18:59 Output Total 450 550 Balance -450 -550 Output: Urine 450 550 Post Void Residual 0 Other: Voiding Method Indwelling Catheter Urinal Toilet # Voids 1 # Bowel Movements 1 - Labs CBC & Chem 7: 08/02/21 05:04 08/01/21 05:55 Labs: Abnormal Lab Results - Last 24 Hours (Table) 08/02/21 08/02/21 Range/Units 05:04 05:04 RBC 3.67 L (4.40-5.60) X 10*6/uL Hgb 10.6 L (13.0-17.0) g/dL Hct 32.8 L (39.6-50.0) % RDW 14.9 H (11.5-14.5) % MPV 9.0 L (9.5-12.2) fL PT 19.8 H (9.0-12.0) sec INR 2.0 H (<1.2)
[2021-08-02] MEDS: FUROSEMIDE 10 MG/ML 4 ML VIAL IV SCH ×2 (13:37→21:07)
--- NOTE | 2021-08-02 15:00 | P.PN ---
Subjective Progress Note Date: 08/02/21 CHIEF COMPLAINT: Incarcerated incisional hernia with bowel obstruction HISTORY OF PRESENT ILLNESS: The patient is postop day #2 status post Robotic repair of incarcerated incisional hernia using ventral ST mesh. Patient reports that his pain is better controlled. He does complain of urinary retention. He did required be straight cathed with 550 mL retained. Patient also was found to have evidence of fluid overload with lower extremity edema bilaterally. Cardiology is placed patient on IV Lasix. Afebrile WBC 6.9 hemoglobin 10.6 up to 11.4 platelets 248 INR 2.0 BNP 5060 PHYSICAL EXAM: VITAL SIGNS: Reviewed GENERAL: Well-developed in no acute distress. HEENT: No sclera icterus. Extraocular movements grossly intact. Moist buccal mucosa. Head is atraumatic, normocephalic. Hears conversational speech. No nasal drainage. NECK: Supple without lymphadenopathy. CHEST: Non-labored respirations and equal bilateral excursions. CARDIOVASCULAR: Palpable 2+ radial pulses. ABDOMEN: Soft. Nondistended. MUSCULOSKELETAL: No clubbing or cyanosis. NEUROLOGIC: No focal or lateralizing signs. Cranial nerves II through XII grossly intact. PSYCH: Appropriate affect. Alert and oriented to person, place and time. SKIN: Well perfused. Good skin turgor. ASSESSMENT: 1. Incarcerated incisional hernia with bowel obstruction status post Robotic repair of incarcerated incisional hernia with mesh PLAN: -Continue to hold Coumadin and Plavix -Fluid overload management per cardiology -Urology on consult for urinary retention. Continue Flomax -Encouraged patient to increase activity level -Continue low fiber diet -Continue to monitor hemoglobin Physician Extruding Press Operator note has been reviewed by physician. Signing provider agrees with the documented findings, assessment, and plan of care. As above. Patient has pre-existing history of obstructive uropathy. Patient has urinary retention. Agree with urology consultation. Additionally, prior CT scan consistent with right pleural effusion. Management of congestive heart failure per cardiology. Objective - Vital Signs Vital signs: Vital Signs Temp 98.4 F 08/02/21 14:46 Pulse 73 08/02/21 14:46 Resp 18 08/02/21 14:46 BP 104/62 08/02/21 14:46 Pulse Ox 96 08/02/21 14:46 FiO2 Intake & Output 05/31/22 06/01/22 06/01/22 18:59 06:59 18:59 Output Total 450 550 Balance -450 -550 Output: Urine 450 550 Post Void Residual 0 Other: Voiding Method Indwelling Catheter Urinal Toilet # Voids 1 # Bowel Movements 1 - Labs CBC & Chem 7: 08/03/21 06:29 08/03/21 06:29 Labs: Abnormal Lab Results - Last 24 Hours (Table) 08/02/21 08/02/21 08/02/21 Range/Units 05:04 05:04 12:50 RBC 3.67 L 3.86 L (4.40-5.60) X 10*6/uL Hgb 10.6 L 11.4 L (13.0-17.0) g/dL Hct 32.8 L 34.8 L (39.6-50.0) % RDW 14.9 H (11.5-14.5) % MPV 9.0 L (9.5-12.2) fL Lymphocytes # 0.8 L (1.0-4.8) k/uL PT 19.8 H (9.0-12.0) sec INR 2.0 H (<1.2)
[2021-08-02] MEDS: METOPROLOL SUCCINATE (ER) 25 MG TAB.ER.24H PO SCH (22:35)
--- NOTE | 2021-08-02 22:44 | P.PN ---
Progress Note - Text Progress Note Date: 08/02/21 Incarcerated incisional hernia with bowel obstruction. Patient underwent robotic repair of incarcerated incisional hernia and the mesh was placed. By Dr. Dominguez August 01: I assumed care of the patient today. Patient up in a chair. Rogers catheter was discontinued. No nausea vomiting. No flatus. On clear liquids. Home dose of Lasix methadone resumed. August 02: Patient having trouble making urine. Has a long-standing history of BPH. Oral intake good. Had a bowel movement. at the bedside. Hemoglobin 10.6. No evidence of outward bleeding. Control abdominal pain. Active Medications Acetaminophen (Acetaminophen Tab 500 Mg Tab) 1,000 mg PO Q6HR [facility] Last Admin: 08/02/21 17:03 Dose: 1,000 mg Albuterol/Ipratropium (Ipratropium-Albuterol 3 Ml Neb) 3 ml INHALATION RT-BID [facility] [place] Last Admin: 08/02/21 20:35 Dose: 3 ml Budesonide/Formoterol Fumarate (Symbicort 160-4.5 Mcg Inhaler) 1 puff INHALATION RT-BID [facility] Last Admin: 08/02/21 20:35 Dose: 1 puff Duloxetine HCl (Duloxetine Hcl 60 Mg Capsule.) 60 mg PO BID@0900,1700 [facility] [place] Last Admin: 08/02/21 17:03 Dose: 60 mg Finasteride (Finasteride 5 Mg Tab) 5 mg PO DAILY@0900 [facility] [place] Last Admin: 08/02/21 08:57 Dose: 5 mg Furosemide (Furosemide 10 Mg/Ml 4 Ml Vial) 40 mg IV Q12HR [facility] [place] Last Admin: 08/02/21 21:07 Dose: 40 mg Heparin Sodium (Porcine) (Heparin Sodium,Porcine/Pf 5,000 Unit/0.5 Ml Syringe) 5,000 unit SQ Q12HR [facility] [place] Last Admin: 08/02/21 21:07 Dose: 5,000 unit Hydromorphone HCl (Hydromorphone 1 Mg/Ml 1 Ml Syringe) 1 mg IVP Q4HR PRN PRN Reason: Pain Piperacillin Sod/Tazobactam (Sod 3.375 gm/ Sodium Chloride) 100 mls @ 25 mls/hr IVPB Q8HR [facility] [place]; Protocol Last Admin: 08/02/21 15:17 Dose: 25 mls/hr Ketorolac Tromethamine (Ketorolac 15 Mg/Ml 1 Ml Vial) 15 mg IVP Q6HR [facility] [place] Stop: 08/04/21 13:31 Last Admin: 08/02/21 17:52 Dose: 15 mg Levothyroxine Sodium (Levothyroxine 100 Mcg Tab) 200 mcg PO DAILY@0700 [facility] [place] Last Admin: 08/02/21 08:57 Dose: 200 mcg Lisinopril (Lisinopril 20 Mg Tab) 20 mg PO DAILY@0900 [facility] Last Admin: 08/02/21 08:58 Dose: 20 mg Methadone HCl (Methadone 5 Mg Tab) 7.5 mg PO TID@0700,1500,2300 [facility] [place] Last Admin: 08/02/21 22:35 Dose: 7.5 mg Metoprolol Succinate (Metoprolol Succinate (Er) 25 Mg Tab.Er.24h) 25 mg PO HS@2300 [facility] [place] Last Admin: 08/02/21 22:35 Dose: 25 mg Morphine Sulfate (Morphine Sulfate 4 Mg/Ml Syringe) 4 mg IV Q4HR PRN PRN Reason: Severe Pain Last Admin: 08/01/21 08:12 Dose: 4 mg Naloxone HCl (Naloxone 0.4 Mg/Ml 1 Ml Vial) 0.2 mg IV Q2M PRN PRN Reason: Opioid Reversal Ondansetron HCl (Ondansetron 4 Mg/2 Ml Vial) 4 mg IVP Q8HR PRN PRN Reason: Nausea And Vomiting Last Admin: 07/30/21 23:28 Dose: 4 mg Pantoprazole Sodium (Pantoprazole 40 Mg/10 Ml Vial) 40 mg IV DAILY [facility] Last Admin: 08/02/21 10:27 Dose: 40 mg Tamsulosin HCl (Tamsulosin 0.4 Mg Cap.Er.24h) 0.4 mg PO BID@0700,1700 [facility] [place] Last Admin: 08/02/21 17:03 Dose: 0.4 mg On examination: VITAL SIGNS: 98.4, 73, 18, 104/62, 96% room air GENERAL APPEARANCE: Reclining in bed , comfortable. HEENT: Normal external appearance of nose and ear. Oral cavity normal EYES: Pupils equal. Conjunctiva normal. NECK: JVD not raised. Mass not palpable. RESPIRATORY: Respiratory effort normal. Lungs clear to auscultation. CARDIOVASCULAR: First and second sounds normal. No edema. ABDOMEN: Soft. Mild tenderness. Liver and spleen not palpable. No tenderness. No mass palpable. PSYCHIATRY: Alert and oriented x3. Mood and affect normal. INVESTIGATIONS, reviewed in the clinical context: August 02: Hemoglobin 10.6 INR 2 White count 9.4 hemoglobin 11.3 platelets 258 potassium 4.4 creatinine 0.9 2-D echocardiogram: EF 50-55% Assessment and plan: -Incarcerated incisional hernia with bowel obstruction Robotic repair of above using Benadryl ST mesh by Dr. Dominguez on July 31 -Persistent atrial fibrillation Toprol-XL 25 mg daily at bedtime. 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 DuoNeb twice a day -Depression and anxiety Cymbalta 60 mg twice a day -Hyperlipidemia Lipitor 40 mg daily at bedtime -Essential hypertension Toprol-XL 25 mg daily at bedtime. Univasc 15 mg daily -Primary osteoarthritis Pain medications as needed -BPH, causing urine outflow obstruction Budesonide 0.5 mg daily -Chronic hypoxic respiratory failure 2 L of oxygen at home, secondary to COPD -Hypothyroid Synthroid 200 g daily -Acute postprocedure blood loss anemia. Expected from surgery. Follow H&H If no urine. Patient will need a Rogers catheter. DC trial as outpatient. Repeat hemoglobin. Care was discussed with the patient and at the bedside. Other medications to continue
[2021-08-03] MEDS: ACETAMINOPHEN TAB 500 MG TAB PO SCH ×3 (05:50→16:59)
[2021-08-03] MEDS: KETOROLAC 15 MG/ML 1 ML VIAL IVP SCH ×2 (05:51→15:12)
[2021-08-03 06:41] LABS: Basophils # (A) 0.1 k/uL (0-0.2); Basophils % (A) 1 %; Eosinophils # (A) 0.5 k/uL (0-0.7); Eosinophils % (A) 7 %; Lymphocytes % (A) 14 %; Monocytes # (A) 0.4 k/uL (0-1.0); Monocytes % (A) 6 %; Neutrophils % (A) 71 %
[2021-08-03 06:50] LABS: HCT 36.3 % (39.0-53.0); HGB 11.3 gm/dL (13.0-17.5); MCH 28.5 pg (25.0-35.0); MCHC 31.2 g/dL (31.0-37.0); MCV 91.1 fL (80.0-100.0); RBC 3.99 m/uL (4.30-5.90)
[2021-08-03 06:51] LABS: Magnesium 1.7 mg/dL (1.6-2.3); Mean Platelet Volume 7.4; Platelet Count 223 k/uL (150-450); RDW 14.4 % (11.5-15.5)
[2021-08-03 07:05] LABS: INR 1.5 (<1.2); Prothrombin Time 15.8 sec (9.0-12.0)
[2021-08-03 07:32] VITALS: RESP 17
[2021-08-03] MEDS: SYMBICORT 160-4.5 MCG INHALER INHALATION SCH (07:58)
[2021-08-03] MEDS: IPRATROPIUM-ALBUTEROL 3 ML NEB INHALATION SCH (07:58)
[2021-08-03] MEDS: PANTOPRAZOLE 40 MG/10 ML VIAL IV SCH (08:16)
[2021-08-03] MEDS: FUROSEMIDE 10 MG/ML 4 ML VIAL IV SCH (08:16)
[2021-08-03] MEDS: HEPARIN SODIUM,PORCINE/PF 5,000 UNIT/0.5 ML SYRINGE SQ SCH (08:41)
[2021-08-03] MEDS: FINASTERIDE 5 MG TAB PO SCH (08:41)
[2021-08-03] MEDS: PIPERACILLIN-TAZOBACTAM 3.375 GM in SODIUM CHLORIDE 0.9% 100 ML IVPB SCH ×2 (08:41→16:58)
[2021-08-03] MEDS: LEVOTHYROXINE 100 MCG TAB PO SCH (08:42)
[2021-08-03] MEDS: lisinopriL 20 MG TAB PO SCH (08:42)
[2021-08-03] MEDS: METHADONE 5 MG TAB PO SCH ×2 (08:42→17:00)
[2021-08-03] MEDS: DULoxetine HCL 60 MG CAPSULE.DR PO SCH ×2 (08:42→16:59)
[2021-08-03] MEDS: TAMSULOSIN 0.4 MG CAP.ER.24H PO SCH ×2 (08:42→16:59)
[2021-08-03 10:59] LABS: African American GFR (CKD) 85 (>60 ml/min/1.73 sqM); Anion Gap 5 mmol/L; Blood Urea Nitrogen 22 mg/dL (9-20); Calcium 7.5 mg/dL (8.4-10.2); Carbon Dioxide 30 mmol/L (22-30); Chloride 98 mmol/L (98-107); Glucose 86 mg/dL (74-99); Non-African American GFR(CKD) 74 (>60 ml/min/1.73 sqM); Potassium 3.3 mmol/L (3.5-5.1); Sodium 133 mmol/L (137-145)
--- NOTE | 2021-08-03 12:19 | P.PN ---
Subjective Progress Note Date: 08/03/21 HISTORY OF PRESENT ILLNESS: 07/31/2021 81-year-old gentleman with history of persistent atrial fibrillation on long- term anticoagulation with Coumadin coronary artery disease status post angioplasty of LAD more than 6 months ago presented to hospital with symptoms of abdominal pain of 3 days' duration. He has an incarcerated ventral hernia and is to undergo surgery for the same. We have been consulted for preop cardiac evaluation. Patient is currently free of angina symptoms of heart failure. Patient underwent ZAK with a view to performing cardioversion was found to have intracardiac thrombus due to which the cardioversion was canceled. He does not have exertional chest pain shortness of breath PND or orthopnea. EKG shows atrial fibrillation with axis deviation and poor R-wave progression. Patient needs an urgent abdominal surgery. I do not see any contraindications at this time. Heart rate is well controlled. He is not in overt heart failure. Does not have any angina. Patient INR is subtherapeutic at 1.7. If necessary he may reverse the Coumadin. Please resume the anticoagulant after surgery as soon as it is feasible from surgical standpoint start him on IV heparin and then switch him to Coumadin. 08/01 Patient underwent robotic-assisted hernia surgery with mesh placement and has been doing well since. He denies any chest pain or pressure. Abdomen is still mildly sore. Tolerating diet. INR yesterday 1.7. His Plavix has been held. 08/02 Patient seen and examined. He states he has been doing fairly well. Still does have significant lower extremity edema. Creatinine has remained stable. Blood pressures stable. 08/03/2021 Patient examined this morning. He is sitting up in the chair. He denies chest pain or pressure. Denies shortness of breath. He remains on IV Lasix for lower extremity edema which remains present but improving. Vital signs are stable. PHYSICAL EXAM: VITAL SIGNS: Reviewed. GENERAL: Well-developed in no acute distress. NECK: Supple. No JVD or thyromegaly LUNGS: Respirations even and unlabored. Lungs essentially clear to auscultation bilaterally. HEART: Irregular rate and rhythm. S1 and S2 heard. EXTREMITIES: Normal range of motion. No clubbing or cyanosis. Peripheral pulses intact. No lower extremity edema ASSESSMENT: Incarcerated incisional hernia with bowel obstruction status post Robotic repair of incarcerated incisional hernia with mesh Persistent atrial fibrillation Coronary artery disease with previous PCI Acute on chronic heart failure with reduced ejection fraction PLAN: Continue IV lasix for lower extremity edema. If surgery wants to discharge patient today, transition to Lasix 80mg BID at discharge Case discussed with general surgery. May resume Coumadin and Plavix. Continue additional cardiac medications Further recommendations pending patient course Nurse practitioner note has been reviewed by physician. Signing provider agrees with the documented findings, assessment, and plan of care. Objective - Vital Signs Vital signs: Vital Signs Temp 98.2 F 08/03/21 07:08 Pulse 77 08/03/21 07:08 Resp 17 08/03/21 07:08 BP 125/82 08/03/21 07:08 Pulse Ox 99 08/03/21 07:08 FiO2 Intake & Output 08/02/21 08/03/21 08/03/21 18:59 06:59 18:59 Output Total 1100 Balance -1100 Output: Urine 1100 Other: Voiding Method Toilet Toilet Toilet Urinal Urinal # Voids 1 1 # Bowel Movements 1 1 - Labs CBC & Chem 7: 08/03/21 06:29 08/03/21 06:29 Labs: Abnormal Lab Results - Last 24 Hours (Table) 08/02/21 08/03/21 08/03/21 Range/Units 12:50 06:29 06:29 RBC 3.86 L 3.99 L (4.30-5.90) m/uL Hgb 11.4 L 11.3 L (13.0-17.5) gm/dL Hct 34.8 L 36.3 L (39.0-53.0) % Lymphocytes # 0.8 L (1.0-4.8) k/uL PT 15.8 H (9.0-12.0) sec INR 1.5 H (<1.2) Sodium (137-145) mmol/L Potassium (3.5-5.1) mmol/L BUN (9-20) mg/dL Calcium (8.4-10.2) mg/dL 08/03/21 Range/Units 06:29 RBC (4.30-5.90) m/uL Hgb (13.0-17.5) gm/dL Hct (39.0-53.0) % Lymphocytes # (1.0-4.8) k/uL PT (9.0-12.0) sec INR (<1.2) Sodium 133 L (137-145) mmol/L Potassium 3.3 L (3.5-5.1) mmol/L BUN 22 H (9-20) mg/dL Calcium 7.5 L (8.4-10.2) mg/dL
[2021-08-03] MEDS ORDERED: CLOPIDOGREL 75 MG TAB PO SCH (12:45)
[2021-08-03] MEDS ORDERED: POTASSIUM CHLORIDE ER 20 MEQ TAB.ER PO STA (13:53)
[2021-08-03 14:53] VITALS: BP 114/75; PULSE 91; TEMP 97.5
--- NOTE | 2021-08-03 15:02 | P.DS ---
Providers Date of admission: 07/30/21 23:19 Expected date of discharge: 08/03/21 Attending physician: Kaylynn Juarez Consults: 07/31/21 05:20 Consult Physician Routine Consulting Provider: Dhruv Ochoa Consult Reason/Comments: Cardiac clearance Do you want consulting provider notified?: Yes, Notify in am Consult Physician Urgent Consulting Provider: Sergio Greer Consult Reason/Comments: Medical management Do you want consulting provider notified?: Yes 08/02/21 09:44 Consult Physician Routine Consulting Provider: Víctor Herrmann Consult Reason/Comments: urinary retention Do you want consulting provider notified?: Yes [facility] Course: Discharge diagnosis 1. Incarcerated incisional hernia with bowel obstruction status post Robotic repair of incarcerated incisional hernia with mesh 2. Acute on chronic heart failure with reduced EF 3. History of atrial fibrillation 4. History of coronary artery disease 5. BPH with urinary retention 6. Hypokalemia Hospital course This is a 81-year-old male who presented with abdominal pain and evaluation of abdominal hernia. CAT scan showed incarcerated umbilical hernia containing small bowel and appears to be the site of a high-grade mechanical small bowel obstruction. Patient is status post Robotic repair of incarcerated incisional hernia with mesh. Patient's pain is controlled. He is tolerating diet. He has been up ambulating. He did have some evidence of urinary retention during this admission. However this has shown improvement. He was seen by urology during this admission. Patient also had evidence of fluid overload and required IV Lasix. Patient has been cleared by cardiology for discharge. Patient is afebrile. He is stable for discharge. Physician Head Nurse note has been reviewed by physician. Signing provider agrees with the documented findings, assessment, and plan of care. POSTOPERATIVE DIAGNOSES: 1. Initial incarcerated incisional hernia with small bowel obstruction 2. Atrial fibrillation, chronic 3. Chronic anticoagulation 4. Chronic pain syndrome 5. Chronic antiplatelet use 6. Chronic obstructive pulmonary disease 7. Coronary artery disease with stent placement 8. Hypertensive heart disease with congestive heart failure 9. Sensorineural hearing loss 10. Hyperlipidemia 11. Benign prostatic hypertrophy with obstructive symptoms 12. Postoperative nausea and vomiting 13. Generalized anxiety disorder 14. Depressive disorder COURSE: The patient is a 81-year-old male who presented acutely with small bowel obstruction due to incarcerated incisional hernia. Cardiac risk assessment was obtained. Postoperatively, patient's pain was carefully dressed has as history of methadone use. Due to severe cardiac disease, cardiology was following. Additionally, patient has history of urinary retention with urology following. Prior to discharge, he was restarted on Coumadin and Plavix with fairly stable hemoglobin. Patient stable for discharge. Procedures: OPERATION: 1. Robotic-assisted da Pato Xi laparoscopic reduction and repair of initial incarcerated incisional ventral hernia with mesh, ventralight ST mesh 11.4 cm Estimated Blood Loss (ml): 5 Pathology: Hernia sac Condition: stable Disposition: floor Operative Findings: 1. Incarcerated incisional hernia at the epigastrium containing small bowel 2. Indocyanine green loop confirms viable small bowel despite early ischemia 3. Resolution of bowel obstruction after reduction 4. Hernia defect 3 cm resected hernia sac and oversewn # 1V LOC 5. No inguinal hernias identified Patient Condition at Discharge: Stable Plan - Discharge Summary New Discharge Prescriptions: New Furosemide [Lasix] 80 mg PO BID #60 tablet Potassium Chloride ER [K-Dur 20] 20 meq PO BID #60 tab Continue Budesonide/Formoterol Fumarate [Symbicort 160-4.5 Mcg Inhaler] 1 puff INHALATION RT-BID Methadone [Dolophine] 7.5 mg PO TID@0700,1500,2300 DULoxetine HCL [Cymbalta] 60 mg PO BID@0900,1700 Moexipril HCl [Univasc] 15 mg PO DAILY@0900 Dutasteride 0.5 mg PO DAILY@0900 Levothyroxine Sodium 200 mcg PO DAILY@0700 Cholecalciferol (Vitamin D3) [Vitamin D3 (125 MCG = 5,000 IU)] 125 mcg PO DAILY@0700 Ubidecarenone [Co Q-10] 100 mg PO BID@0900,1700 Multivit-Min/Folic/Vit K/Lycop [Men's Multivitamin Tablet] 1 tab PO DAILY@0900 Warfarin [Coumadin] 5 mg PO W/SUPPER Atorvastatin [Lipitor] 40 mg PO HS@1700 Ipratropium-Albuterol Nebulize [Duoneb 0.5 mg-3 mg/3 ml Soln] 3 ml INHALATION RT-BID Tamsulosin [Flomax] 0.4 mg PO BID@0700,1700 Metoprolol Succinate (ER) [Toprol XL] 25 mg PO HS@2300 polyethylene glycoL 3350 [Miralax] 17 gm PO W/SUPPER Zinc 50 mg PO W/SUPPER Super Vitamin B 1 tab PO W/SUPPER Clopidogrel [Plavix] 75 mg PO DAILY@0900 Discontinued Turmeric Root Extract [Turmeric] 500 mg PO W/SUPPER Furosemide [Lasix] 40 mg PO BID@0700,1500 Discharge Medication List Budesonide/Formoterol Fumarate [Symbicort 160-4.5 Mcg Inhaler] 1 puff INHALATION RT-BID 05/03/15 [History] DULoxetine HCL [Cymbalta] 60 mg PO BID@0900,1700 05/24/16 [History] Methadone [Dolophine] 7.5 mg PO TID@0700,1500,2300 05/24/16 [History] Moexipril HCl [Univasc] 15 mg PO DAILY@0900 05/24/16 [History] Dutasteride 0.5 mg PO DAILY@0900 09/06/17 [History] Cholecalciferol (Vitamin D3) [Vitamin D3 (125 MCG = 5,000 IU)] 125 mcg PO DAILY@0700 12/30/20 [History] Levothyroxine Sodium 200 mcg PO DAILY@0700 12/30/20 [History] Metoprolol Succinate (ER) [Toprol XL] 25 mg PO HS@2300 12/30/20 [History] Multivit-Min/Folic/Vit K/Lycop [Men's Multivitamin Tablet] 1 tab PO DAILY@0900 12/30/20 [History] Tamsulosin [Flomax] 0.4 mg PO BID@0700,1700 12/30/20 [History] Ubidecarenone [Co Q-10] 100 mg PO BID@0900,1700 12/30/20 [History] Zinc 50 mg PO W/SUPPER 12/30/20 [History] polyethylene glycoL 3350 [Miralax] 17 gm PO W/SUPPER 12/30/20 [History] Warfarin [Coumadin] 5 mg PO W/SUPPER 01/16/21 [History] Atorvastatin [Lipitor] 40 mg PO HS@1700 07/31/21 [History] Clopidogrel [Plavix] 75 mg PO DAILY@0900 07/31/21 [History] Ipratropium-Albuterol Nebulize [Duoneb 0.5 mg-3 mg/3 ml Soln] 3 ml INHALATION RT-BID 07/31/21 [History] Super Vitamin B 1 tab PO W/SUPPER 07/31/21 [History] Furosemide [Lasix] 80 mg PO BID #60 tablet 08/03/21 [Rx] Potassium Chloride ER [K-Dur 20] 20 meq PO BID #60 tab 08/03/21 [Rx] Follow up Appointment(s)/Referral(s): Ty Farrar MD [Primary Care Provider] - 1-2 days (OFFICE CLOSED. PLEASE MAKE FOLLOW UP APPT NEXT BUSINESS DAY. ) Dhruv Ochoa DO [STAFF PHYSICIAN] - 1 Week (OFFICE CLOSED. PLEASE MAKE FOLLOW UP APPT ON FOLLOWING BUSINESS DAY.) Kaylynn Juarez MD [STAFF PHYSICIAN] - 08/15/21 [facility], [NON-STAFF] - As Needed ([facility] will call you to schedule your in home nursing visits. ) Patient Instructions/Handouts: Abdominal Binder (DC), Ventral Hernia Repair (DC) Activity/Diet/Wound Care/Special Instructions: PATIENTS OWN METHADONE IS DOWN IN PHARMACY Wear abdominal binder at all times for comfort. No lifting over 4 pounds in 4 weeks You May shower. No bath tub soaks for two weeks Continue low fiber diet Discharge Disposition: HOME WITH HOME HEALTH SERVICES
--- NOTE | 2021-08-03 15:21 | P.GSCN ---
History of Present Illness Consult date: 08/03/21 Reason for Consult: Urinary retention History of present illness: This is an 81-year-old male status post incisional hernia repair by Dr. Koffi cobb, Rogers catheter was removed yesterday, and initially he was having high postvoid residual, the highest was 287 mL , but this has been gradually decreasing. He indicated he's able to void without any difficulty. Denies any abdominal pressure or any sensation of incomplete bladder emptying. Denies any obstructive urinary symptoms at baseline, indicated post completion. No previous history of urinary retention, UTIs or gross hematuria. No previous urological surgeries Review of Systems - Constitutional Denies fever, Denies weight loss - EENT Ears, nose, mouth and throat: Denies dysphagia - Cardiovascular Denies chest pain, Denies shortness of breath - Respiratory Denies cough, Denies 7 - Gastrointestinal Reports as per HPI - Genitourinary Denies dysuria, Denies hematuria - Neurological Denies headaches, Denies syncope Past Medical History Past Medical History: Atrial Fibrillation, COPD, Hearing Disorder / Deafness, Hy perlipidemia, Hypertension, Osteoarthritis (OA), Prostate Disorder, Thyroid Disorder Additional Past Medical History / Comment(s): BPH., O2 @ 2 L@ HS., CHRONIC BACK PAIN, CONSTIPATION, SOB W/ACTIVITY., edema lower legs & feet much improved History of Any Multi-Drug Resistant Organisms: None Reported Past Surgical History: Adenoidectomy, Appendectomy, Cholecystectomy, Heart Catheterization With Stent, Joint Replacement, Tonsillectomy Additional Past Surgical History / Comment(s): TOTAL LEFT SHOULDER, TOTAL LEFT HIP, alexandro carpel tunnel, alexandro cataracts, TOTAL RIGHT SHOULDER ARTHROPLASTY 01-22-2017, Past Anesthesia/Blood Transfusion Reactions: Previous Problems w/ Anesthesia, Postoperative Nausea & Vomiting (PONV) Additional Past Anesthesia/Blood Transfusion Reaction / Comm: . Date of Last Stent Placement:: 01-02-21 Past Psychological History: Anxiety, Depression Smoking Status: Former smoker Past Alcohol Use History: None Reported Additional Past Alcohol Use History / Comment(s): quit smoking 2010,smoked for 40yrs-50 cigars per week Past Drug Use History: None Reported - Past Family History Mother Family Medical History: Congestive Heart Failure (CHF), Diabetes Mellitus Father Family Medical History: Cancer Additional Family Medical History / Comment(s): lung Brother(s) Family Medical History: COPD Medications and Allergies Home Medications Medication Instructions Recorded Confirmed Type Budesonide/Formoterol Fumarate 1 puff INHALATION RT-BID 05/03/15 07/31/21 History [Symbicort 160-4.5 Mcg Inhaler] DULoxetine HCL [Cymbalta] 60 mg PO BID@0900,1700 05/24/16 07/31/21 History Methadone [Dolophine] 7.5 mg PO TID@0700,1500,2300 05/24/16 07/31/21 History Moexipril HCl [Univasc] 15 mg PO DAILY@0900 05/24/16 07/31/21 History Dutasteride 0.5 mg PO DAILY@0900 09/06/17 07/31/21 History Cholecalciferol (Vitamin D3) 125 mcg PO DAILY@0700 12/30/20 07/31/21 History [Vitamin D3 (125 MCG = 5,000 IU)] Levothyroxine Sodium 200 mcg PO DAILY@0700 12/30/20 07/31/21 History Metoprolol Succinate (ER) [Toprol 25 mg PO HS@2300 12/30/20 07/31/21 History XL] Multivit-Min/Folic/Vit K/Lycop 1 tab PO DAILY@0900 12/30/20 07/31/21 History [Men's Multivitamin Tablet] Tamsulosin [Flomax] 0.4 mg PO BID@0700,1700 12/30/20 07/31/21 History Turmeric Root Extract [Turmeric] 500 mg PO W/SUPPER 12/30/20 07/31/21 History Ubidecarenone [Co Q-10] 100 mg PO BID@0900,1700 12/30/20 07/31/21 History Zinc 50 mg PO W/SUPPER 12/30/20 07/31/21 History polyethylene glycoL 3350 [Miralax] 17 gm PO W/SUPPER 12/30/20 07/31/21 History Warfarin [Coumadin] 5 mg PO W/SUPPER 01/16/21 07/31/21 History Atorvastatin [Lipitor] 40 mg PO HS@1700 07/31/21 07/31/21 History Clopidogrel [Plavix] 75 mg PO DAILY@0900 07/31/21 07/31/21 History Ipratropium-Albuterol Nebulize 3 ml INHALATION RT-BID 07/31/21 07/31/21 History [Duoneb 0.5 mg-3 mg/3 ml Soln] Super Vitamin B 1 tab PO W/SUPPER 07/31/21 07/31/21 History Furosemide [Lasix] 80 mg PO BID #60 tablet 08/03/21 Rx Potassium Chloride ER [K-Dur 20] 20 meq PO BID #60 tab 08/03/21 Rx Allergies Allergy/AdvReac Type Severity Reaction Status Date / Time No Known Allergies Allergy Verified 07/31/21 07:47 Surgical - Exam Vital Signs Temp Pulse Resp BP Pulse Ox 98.1 F 92 18 128/77 98 07/30/21 21:02 07/30/21 21:02 07/30/21 21:02 07/30/21 21:02 07/30/21 21:02 - General no distress, no pain - Eyes normal ocular movement, no pale - ENT normal nares, normal mucosa - Respiratory normal expansion, normal respiratory effort - Abdomen Abdomen: soft, non tender - Psychiatric oriented to time, oriented to person, oriented to place Results - Labs 08/03/21 06:29 08/03/21 06:29 Abnormal Lab Results - Last 24 Hours (Table) 08/03/21 08/03/21 08/03/21 Range/Units 06:29 06:29 06:29 RBC 3.99 L (4.30-5.90) m/uL Hgb 11.3 L (13.0-17.5) gm/dL Hct 36.3 L (39.0-53.0) % PT 15.8 H (9.0-12.0) sec INR 1.5 H (<1.2) Sodium 133 L (137-145) mmol/L Potassium 3.3 L (3.5-5.1) mmol/L BUN 22 H (9-20) mg/dL Calcium 7.5 L (8.4-10.2) mg/dL Diabetes panel 08/03/21 Range/Units 06:29 Sodium 133 L (137-145) mmol/L Potassium 3.3 L (3.5-5.1) mmol/L Chloride 98 (98-107) mmol/L Carbon Dioxide 30 (22-30) mmol/L BUN 22 H (9-20) mg/dL Creatinine 0.96 (0.66-1.25) mg/dL Glucose 86 (74-99) mg/dL Calcium 7.5 L (8.4-10.2) mg/dL Calcium panel 08/03/21 Range/Units 06:29 Calcium 7.5 L (8.4-10.2) mg/dL Pituitary panel 08/03/21 Range/Units 06:29 Sodium 133 L (137-145) mmol/L Potassium 3.3 L (3.5-5.1) mmol/L Chloride 98 (98-107) mmol/L Carbon Dioxide 30 (22-30) mmol/L BUN 22 H (9-20) mg/dL Creatinine 0.96 (0.66-1.25) mg/dL Glucose 86 (74-99) mg/dL Calcium 7.5 L (8.4-10.2) mg/dL Adrenal panel 08/03/21 Range/Units 06:29 Sodium 133 L (137-145) mmol/L Potassium 3.3 L (3.5-5.1) mmol/L Chloride 98 (98-107) mmol/L Carbon Dioxide 30 (22-30) mmol/L BUN 22 H (9-20) mg/dL Creatinine 0.96 (0.66-1.25) mg/dL Glucose 86 (74-99) mg/dL Calcium 7.5 L (8.4-10.2) mg/dL Assessment and Plan Assessment: 81-year-old male with history of elevated postvoid residual following incisional hernia repair, the highest was residual was 287. Patient is able to void spontaneously. His post void residual has been decreasing. At this point recommend repeat Bladder scan if less than 300 mL no indication for Rogers catheter, he can be discharged home without the Rogers catheter from urology standpoint. if PVR is greater than 300 inserted a Rogers and cam follow up early next week for trial of void
[2021-08-03] MEDS ORDERED: WARFARIN 5 MG TAB PO SCH (18:00)
--- NOTE | 2021-08-03 18:23 | P.PN ---
Progress Note - Text Progress Note Date: 08/03/21 Incarcerated incisional hernia with bowel obstruction. Patient underwent robotic repair of incarcerated incisional hernia and the mesh was placed. By Dr. Dominguez August 01: I assumed care of the patient today. Patient up in a chair. Rogers catheter was discontinued. No nausea vomiting. No flatus. On clear liquids. Home dose of Lasix methadone resumed. August 02: Patient having trouble making urine. Has a long-standing history of BPH. Oral intake good. Had a bowel movement. at the bedside. Hemoglobin 10.6. No evidence of outward bleeding. Control abdominal pain. August 03: Didn't make urine. Bladder scan less than 300 mL. Up to the bathroom. Eating well. Had a BM. Discussed with at the bedside Active Medications Acetaminophen (Acetaminophen Tab 500 Mg Tab) 1,000 mg PO Q6HR [facility] Last Admin: 08/03/21 16:59 Dose: Not Given Albuterol/Ipratropium (Ipratropium-Albuterol 3 Ml Neb) 3 ml INHALATION RT-BID [facility] Last Admin: 08/03/21 07:58 Dose: Not Given Budesonide/Formoterol Fumarate (Symbicort 160-4.5 Mcg Inhaler) 1 puff INHALATION RT-BID [facility] Last Admin: 08/03/21 07:58 Dose: Not Given Clopidogrel Bisulfate (Clopidogrel 75 Mg Tab) 75 mg PO DAILY [facility] Last Admin: 08/03/21 13:48 Dose: 75 mg Duloxetine HCl (Duloxetine Hcl 60 Mg Capsule.) 60 mg PO BID@0900,1700 [facility] Last Admin: 08/03/21 16:59 Dose: 60 mg Finasteride (Finasteride 5 Mg Tab) 5 mg PO DAILY@0900 [facility] Last Admin: 08/03/21 08:41 Dose: 5 mg Furosemide (Furosemide 10 Mg/Ml 4 Ml Vial) 40 mg IV Q12HR [facility] Last Admin: 08/03/21 08:16 Dose: 40 mg Heparin Sodium (Porcine) (Heparin Sodium,Porcine/Pf 5,000 Unit/0.5 Ml Syringe) 5,000 unit SQ Q12HR [facility] Last Admin: 08/03/21 08:41 Dose: 5,000 unit Hydromorphone HCl (Hydromorphone 1 Mg/Ml 1 Ml Syringe) 1 mg IVP Q4HR PRN PRN Reason: Pain Piperacillin Sod/Tazobactam (Sod 3.375 gm/ Sodium Chloride) 100 mls @ 25 mls/hr IVPB Q8HR [facility]; Protocol Last Admin: 08/03/21 16:58 Dose: Not Given Ketorolac Tromethamine (Ketorolac 15 Mg/Ml 1 Ml Vial) 15 mg IVP Q6HR [facility] Stop: 08/04/21 13:31 Last Admin: 08/03/21 15:12 Dose: Not Given Levothyroxine Sodium (Levothyroxine 100 Mcg Tab) 200 mcg PO DAILY@0700 [facility] Last Admin: 08/03/21 08:42 Dose: 200 mcg Lisinopril (Lisinopril 20 Mg Tab) 20 mg PO DAILY@0900 [facility] Last Admin: 08/03/21 08:42 Dose: 20 mg Methadone HCl (Methadone 5 Mg Tab) 7.5 mg PO TID@0700,1500,2300 [facility] Last Admin: 08/03/21 17:00 Dose: 7.5 mg Metoprolol Succinate (Metoprolol Succinate (Er) 25 Mg Tab.Er.24h) 25 mg PO HS@2300 [facility] Last Admin: 08/02/21 22:35 Dose: 25 mg Miscellaneous Information (Warfarin Per Pharmacy) 0 each MISCELLANE DIRECTED PRN PRN Reason: ANTICOAG Morphine Sulfate (Morphine Sulfate 4 Mg/Ml Syringe) 4 mg IV Q4HR PRN PRN Reason: Severe Pain Last Admin: 08/01/21 08:12 Dose: 4 mg Naloxone HCl (Naloxone 0.4 Mg/Ml 1 Ml Vial) 0.2 mg IV Q2M PRN PRN Reason: Opioid Reversal Ondansetron HCl (Ondansetron 4 Mg/2 Ml Vial) 4 mg IVP Q8HR PRN PRN Reason: Nausea And Vomiting Last Admin: 07/30/21 23:28 Dose: 4 mg Pantoprazole Sodium (Pantoprazole 40 Mg/10 Ml Vial) 40 mg IV DAILY [facility] Last Admin: 08/03/21 08:16 Dose: 40 mg Tamsulosin HCl (Tamsulosin 0.4 Mg Cap.Er.24h) 0.4 mg PO BID@0700,1700 [facility] Last Admin: 08/03/21 16:59 Dose: 0.4 mg Warfarin Sodium (Warfarin 5 Mg Tab) 5 mg PO DAILY@1800 DIANA; Protocol On examination: VITAL SIGNS: 97.5, 91, 17, 11/75, 99% room air GENERAL APPEARANCE: comfortable. HEENT: Normal external appearance of nose and ear. Oral cavity normal EYES: Pupils equal. Conjunctiva normal. NECK: JVD not raised. Mass not palpable. RESPIRATORY: Respiratory effort normal. Lungs clear to auscultation. CARDIOVASCULAR: First and second sounds normal. No edema. ABDOMEN: Soft. Mild tenderness. Liver and spleen not palpable. No tenderness. No mass palpable. PSYCHIATRY: Alert and oriented x3. Mood and affect normal. INVESTIGATIONS, reviewed in the clinical context: August 03: Hemoglobin 13.3 August 02: Hemoglobin 10.6 INR 2 White count 9.4 hemoglobin 11.3 platelets 258 potassium 4.4 creatinine 0.9 2-D echocardiogram: EF 50-55% Assessment and plan: -Incarcerated incisional hernia with bowel obstruction Robotic repair of above using Benadryl ST mesh by Dr. Dominguez on July 31 -Persistent atrial fibrillation Toprol-XL 25 mg daily at bedtime. 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 DuoNeb twice a day -Depression and anxiety Cymbalta 60 mg twice a day -Hyperlipidemia Lipitor 40 mg daily at bedtime -Essential hypertension Toprol-XL 25 mg daily at bedtime. Univasc 15 mg daily -Primary osteoarthritis Pain medications as needed -BPH, causing urine outflow obstruction Budesonide 0.5 mg daily -Chronic hypoxic respiratory failure 2 L of oxygen at home, secondary to COPD -Hypothyroid Synthroid 200 g daily -Acute postprocedure blood loss anemia. Expected from surgery. Follow H&H Doing well. Stable. Hemoglobin stable. Resume Coumadin when okay with surgery. Discussed with .
--- NOTE | 2021-08-03 18:45 | P.PN ---
Progress Note - Text Progress Note Date: 08/03/21 Patient evaluated this evening. at bedside. Patient pleased with surgical experience. All consultants reviewed and patient is clear for discharge. May wear abdominal binder as needed. Follow-up in the office in 2 weeks' reviewed. Medical reconciliation completed.
== END 2021-08-03 19:31 | disposition home health service (06) | DRG 353 ==
LOC: EC 20:44 → 4SSUR 23:19
PROVIDERS: ADMIT Surgery Plastic and Reconstructive Surgery; ATTEND Surgery Plastic and Reconstructive Surgery
PROC: 0WUF4JZ Supplement Abdominal Wall with Synthetic Substitute, Percutaneous Endoscopic Approach (ICD-10-PCS; principal; 2021-07-31 16:00)
PROC: 3E0M45Z Introduction of Adhesion Barrier into Peritoneal Cavity, Percutaneous Endoscopic Approach (ICD-10-PCS; principal; 2021-07-31 16:00)
PROC: 4A1BXSH Monitoring of Gastrointestinal Vascular Perfusion using Indocyanine Green Dye, External Approach (ICD-10-PCS; principal; 2021-07-31 16:00)
PROC: 8E0W4CZ Robotic Assisted Procedure of Trunk Region, Percutaneous Endoscopic Approach (ICD-10-PCS; principal; 2021-07-31 16:00)
PROC: 0D9670Z Drainage of Stomach with Drainage Device, Via Natural or Artificial Opening (ICD-10-PCS; principal; 2021-07-31 16:00)
DX: K43.0 Incisional hernia with obstruction, without gangrene (principal); I50.23 Acute on chronic systolic (congestive) heart failure; I48.19 Other persistent atrial fibrillation; E87.1 Hypo-osmolality and hyponatremia; R17 Unspecified jaundice; J96.11 Chronic respiratory failure with hypoxia; D62 Acute posthemorrhagic anemia; I11.0 Hypertensive heart disease with heart failure; J44.9 Chronic obstructive pulmonary disease, unspecified; R33.8 Other retention of urine; E87.8 Other disorders of electrolyte and fluid balance, not elsewhere classified; E87.6 Hypokalemia; I51.3 Intracardiac thrombosis, not elsewhere classified; N40.1 Benign prostatic hyperplasia with lower urinary tract symptoms; I25.10 Atherosclerotic heart disease of native coronary artery without angina pectoris; E03.9 Hypothyroidism, unspecified; E78.5 Hyperlipidemia, unspecified; M54.9 Dorsalgia, unspecified; K59.00 Constipation, unspecified; M19.90 Unspecified osteoarthritis, unspecified site; F32.A Depression, unspecified; F41.9 Anxiety disorder, unspecified; F03.90 Unspecified dementia, unspecified severity, without behavioral disturbance, psychotic disturbance, mood disturbance, and anxiety; F41.1 Generalized anxiety disorder; G89.4 Chronic pain syndrome; H90.5 Unspecified sensorineural hearing loss; Z99.81 Dependence on supplemental oxygen; Z90.49 Acquired absence of other specified parts of digestive tract; Z95.5 Presence of coronary angioplasty implant and graft; Z96.612 Presence of left artificial shoulder joint; Z96.642 Presence of left artificial hip joint; Z98.42 Cataract extraction status, left eye; Z98.41 Cataract extraction status, right eye; Z79.51 Long term (current) use of inhaled steroids; Z79.899 Other long term (current) drug therapy; Z79.890 Hormone replacement therapy; Z79.01 Long term (current) use of anticoagulants; Z79.82 Long term (current) use of aspirin; Z79.02 Long term (current) use of antithrombotics/antiplatelets; Z87.891 Personal history of nicotine dependence; Z83.3 Family history of diabetes mellitus; Z82.49 Family history of ischemic heart disease and other diseases of the circulatory system; Z82.5 Family history of asthma and other chronic lower respiratory diseases; Z96.611 Presence of right artificial shoulder joint
CPT/HCPCS: 36415; 71045; 74177; 80048; 80053; 81003; 82150; 83605; 83690; 83735; 83880; 84100; 85025; 85027; 85610; 86850; 86900; 86901; 88302; 93005; 93306; 94640; 94760; 96361; 96365; 96375; 96376; 99285

== ENCOUNTER → 2022-07-04 | Outpatient (CLI) | payer MEDICARE, BC ==
--- NOTE | 2022-07-04 15:54 | XR ---
EXAMINATION TYPE: XR abdomen 1V DATE OF EXAM: 07/04/2022 COMPARISON: NONE HISTORY: Pain TECHNIQUE: One view abdominal series FINDINGS: The osseous structures are intact. The bowel gas pattern is nonspecific. Post surgical changes left hip and there is moderate arthropathy right hip. Diffuse osteopenia. Calcifications in the pelvis juan ear vascular. Severe degenerative disc disease throughout the lumbar spine. Contained fecal debris th roughout the colon. Spina bifida occulta sacrum. IMPRESSION: 1. Nonspecific abdomen. Correlate for constipation.
== END | disposition home or self-care (01) ==
LOC: RADXRMAIN 15:32
PROVIDERS: ATTEND Family Medicine
DX: K59.9 Functional intestinal disorder, unspecified (principal); K62.4 Stenosis of anus and rectum; K64.9 Unspecified hemorrhoids; I10 Essential (primary) hypertension; R41.3 Other amnesia; E03.9 Hypothyroidism, unspecified
CPT/HCPCS: 74018

== ENCOUNTER → 2022-07-04 | Outpatient (CLI) | payer MEDICARE, BC ==
--- NOTE | 2022-07-05 16:06 | MR ---
EXAMINATION TYPE: MR brain wo/w con DATE OF EXAM: 07/04/2022 6:10 PM CLINICAL INDICATION:Male, 82 years old with history of R41.3; Amnesia COMPARISON: None TECHNIQUE: Multi planar, multi sequence imaging was performed through the brain including: T1, T2, In version recovery, susceptibility weighted imaging and gradient echo imaging and Diffusion weighted im aging. The patient was then given intravenous contrast and multi planar, T1 fat-saturation images wer e obtained. IV Contrast: 9.5 cc Gadavist FINDINGS: The davis-white junctions, ventricular system, basal cisterns appear unremarkable. Diffusion-weighted imaging shows no evidence of restricted diffusion to suggest acute/subacute infarct. Intracranial art erial flow voids are maintained. Midline structures show no abnormality. Scattered foci of high T2 si gnal intensity are seen within the periventricular white matter. The susceptibility weighted images d o not reveal any evidence for micro-hemorrhage. After administration of gadolinium, no abnormal enhan cement is seen. The bone marrow signal is within normal limits. Paranasal sinuses and mastoid air cells: No significant paranasal sinus disease. Trace right mastoid air cell effusion. Visualized orbits: Bilateral aphakia Soft tissue lesion in the left frontal region likely representing a mole. IMPRESSION: 1. No evidence of intracranial mass, acute/subacute infarct, or abnormal enhancement. 2. Nonspecific white matter changes, likely related to small vessel ischemic disease 3. Trace right mastoid air cell effusion.
== END | disposition home or self-care (01) ==
LOC: RADMRIMAIN 17:03
PROVIDERS: ATTEND Family Medicine
DX: K62.4 Stenosis of anus and rectum (principal); K64.9 Unspecified hemorrhoids; K59.09 Other constipation; E03.9 Hypothyroidism, unspecified; I10 Essential (primary) hypertension; E78.5 Hyperlipidemia, unspecified; G93.89 Other specified disorders of brain; H74.8X1 Other specified disorders of right middle ear and mastoid; R41.3 Other amnesia
CPT/HCPCS: 70553; A9585

== ENCOUNTER → 2022-08-08 | Outpatient (CLI) | payer MEDICARE, BC ==
[2022-08-09 13:29] LABS: Zinc, Serum 72 ug/dL (60-130)
== END | disposition home or self-care (01) ==
LOC: LABMAIN 13:29
PROVIDERS: ATTEND Psychiatry & Neurology Neurology
DX: R41.3 Other amnesia (principal); R26.89 Other abnormalities of gait and mobility; R53.1 Weakness
CPT/HCPCS: 82525; 82550; 84630

== ENCOUNTER → 2022-08-17 | Outpatient (CLI) | payer MEDICARE, BC ==
--- NOTE | 2022-08-17 15:37 | US ---
EXAMINATION TYPE: US abdomen complete DATE OF EXAM: 08/17/2022 COMPARISON: NONE CLINICAL INDICATION: Male, 82 years old with history of R74.01 ELEVATION OF LEVELS OF LIVER TRANSAMIN ASE L; Elevated liver enzymes. Abdominal pain. Cholecystectomy TECHNIQUE: Multiple sonographic images of the abdomen are obtained. FINDINGS: EXAM MEASUREMENTS: Liver Length: 17.4 cm Gallbladder Wall: Surgically absent CBD: 0.6 cm Spleen: 9.7 cm Right Kidney: 9.5 x 4.6 x 4.8 cm Left Kidney: 10.5 x 5.3 x 5.2 cm SPINNER TENDER NOTES: Technical limitations due to large amount of overlying bowel content Pancreas: Obscured by bowel gas Liver: appears wnl Gallbladder: Surgically absent Evidence for sonographic Stoner's sign: no CBD: limited evaluation Spleen: wnl Right Kidney: no evidence of hydronephrosis Left Kidney: no evidence of hydronephrosis Upper IVC: wnl Abd Aorta: Obscured by overlying bowel gas *small amount of free fluid RUQ and LUQ IMPRESSION: 1. Mild hepatomegaly. 2. Mild ascites
== END | disposition home or self-care (01) ==
LOC: RADUSWWP 10:23
PROVIDERS: ATTEND Family Medicine
DX: R74.01 Elevation of levels of liver transaminase levels (principal); R16.0 Hepatomegaly, not elsewhere classified; R18.8 Other ascites
CPT/HCPCS: 76700

== ENCOUNTER 2022-09-03 16:40 | Inpatient (IN) | payer MEDICARE, BC ==
--- NOTE | 2022-09-03 18:46 | XR ---
EXAMINATION TYPE: XR chest 2V DATE OF EXAM: 09/03/2022 6:21 PM COMPARISON: Chest radiographs from 07/31/2021 TECHNIQUE: XR chest 2V Frontal and lateral views of the chest. CLINICAL INDICATION:Male, 82 years old with history of Chest Pain; FINDINGS: Lungs/Pleura: No evidence of focal consolidation or pneumothorax. Blunting of the costophrenic angles is present. Pulmonary vascularity: Pulmonary vascular congestion. Heart/mediastinum: Cardiomediastinal silhouette is enlarged and stable. Musculoskeletal: No acute osseous pathology. Bilateral shoulder arthroplasty changes. IMPRESSION: Cardiomegaly, pulmonary vascular congestion and bilateral pleural effusions. Correlate with BNP for c ongestive heart failure.
[2022-09-03 19:13] LABS: Anisocytosis Slight; Basophils % (A) 0 %; Eosinophils # (A) 0.1 k/uL (0-0.7); Eosinophils % (A) 2 %; HGB 12.3 gm/dL (13.0-17.5); Lymphocytes # (A) 1.1 k/uL (1.0-4.8); Lymphocytes % (A) 19 %; MCHC 32.4 g/dL (31.0-37.0); MCV 86.3 fL (80.0-100.0); Mean Platelet Volume 7.3; Monocytes # (A) 0.4 k/uL (0-1.0); Monocytes % (A) 7 %; Neutrophils # (A) 4.2 k/uL (1.3-7.7); Neutrophils % (A) 70 %; Platelet Count 248 k/uL (150-450); RBC 4.41 m/uL (4.30-5.90); RDW 16.3 % (11.5-15.5)
[2022-09-03 19:21] LABS: INR 2.8 (<1.2); Partial Thromboplastin Time 35.6 sec (22.0-30.0); Prothrombin Time 27.2 sec (9.0-12.0)
[2022-09-03 19:26] LABS: ALT 47 U/L (4-49); AST 60 U/L (17-59); African American GFR (CKD) 88 (>60 ml/min/1.73 sqM); Albumin 3.6 g/dL (3.5-5.0); Alkaline Phosphatase 157 U/L (38-126); Anion Gap 7 mmol/L; Blood Urea Nitrogen 22 mg/dL (9-20); Calcium 8.1 mg/dL (8.4-10.2); Carbon Dioxide 33 mmol/L (22-30); Chloride 94 mmol/L (98-107); Glucose 94 mg/dL (74-99); Magnesium 2.1 mg/dL (1.6-2.3); Non-African American GFR(CKD) 76 (>60 ml/min/1.73 sqM); Potassium 4.5 mmol/L (3.5-5.1); Sodium 134 mmol/L (137-145); Total Bilirubin 1.3 mg/dL (0.2-1.3); Total Protein 6.4 g/dL (6.3-8.2)
[2022-09-03] MEDS ORDERED: FUROSEMIDE 10 MG/ML 4 ML VIAL IV STA (21:36)
[2022-09-03] MEDS ORDERED: NALOXONE 0.4 MG/ML 1 ML VIAL IV PRN (21:39)
--- NOTE | 2022-09-03 21:50 | ED ---
General Adult HPI - General Chief complaint: Chest Pain Stated complaint: ANGELICA has COPD Time Seen by Provider: 09/03/22 20:18 Source: patient, family Mode of arrival: wheelchair Limitations: no limitations - History of Present Illness Initial comments: This is an 82-year-old male with a past medical history including atrial fibrillation, COPD and hypertension presents emergency department for increased swelling as well as difficulty sleeping and inability to lay flat at night. The patient stated that the symptoms have been present the last 3 days and worsening to the point where he cannot sleep. The patient did state that he has taken and is prescribed Lasix, 80 mg a day so I continued and worsening lower extremity swelling and difficulty breathing with activity. The patient stated that the symptoms that caused him to come to the emergency department was inability to sleep and lay flat area and the patient denied any current shortness of breath with sitting on the bed. The patient denied any other acute critical points at this time. - Related Data Home Medications Medication Instructions Recorded Confirmed Budesonide/Formoterol Fumarate 1 puff INHALATION RT-BID 05/03/15 07/31/21 [Symbicort 160-4.5 Mcg Inhaler] DULoxetine HCL [Cymbalta] 60 mg PO BID@0900,1700 05/24/16 07/31/21 Methadone [Dolophine] 7.5 mg PO TID@0700,1500,2300 05/24/16 07/31/21 Moexipril HCl [Univasc] 15 mg PO DAILY@0900 05/24/16 07/31/21 Dutasteride 0.5 mg PO DAILY@0900 09/06/17 07/31/21 Cholecalciferol (Vitamin D3) 125 mcg PO DAILY@0700 12/30/20 07/31/21 [Vitamin D3 (125 MCG = 5,000 IU)] Levothyroxine Sodium 200 mcg PO DAILY@0700 12/30/20 07/31/21 Metoprolol Succinate (ER) [Toprol 25 mg PO HS@2300 12/30/20 07/31/21 XL] Multivit-Min/Folic/Vit K/Lycop 1 tab PO DAILY@0900 12/30/20 07/31/21 [Men's Multivitamin Tablet] Tamsulosin [Flomax] 0.4 mg PO BID@0700,1700 12/30/20 07/31/21 Ubidecarenone [Co Q-10] 100 mg PO BID@0900,1700 12/30/20 07/31/21 Zinc 50 mg PO W/SUPPER 12/30/20 07/31/21 polyethylene glycoL 3350 [Miralax] 17 gm PO W/SUPPER 12/30/20 07/31/21 Warfarin [Coumadin] 5 mg PO W/SUPPER 01/16/21 07/31/21 Atorvastatin [Lipitor] 40 mg PO HS@1700 07/31/21 07/31/21 Clopidogrel [Plavix] 75 mg PO DAILY@0900 07/31/21 07/31/21 Ipratropium-Albuterol Nebulize 3 ml INHALATION RT-BID 07/31/21 07/31/21 [Duoneb 0.5 mg-3 mg/3 ml Soln] Super Vitamin B 1 tab PO W/SUPPER 07/31/21 07/31/21 Previous Rx's Medication Instructions Recorded Furosemide [Lasix] 80 mg PO BID #60 tablet 08/03/21 Potassium Chloride ER [K-Dur 20] 20 meq PO BID #60 tab 08/03/21 Allergies Allergy/AdvReac Type Severity Reaction Status Date / Time No Known Allergies Allergy Verified 07/31/21 07:47 Review of Systems ROS Statement: Those systems with pertinent positive or pertinent negative responses have been documented in the HPI. ROS Other: All systems not noted in ROS Statement are negative. Past Medical History Past Medical History: Atrial Fibrillation, COPD, Hearing Disorder / Deafness, Hyperlipidemia, Hypertension, Osteoarthritis (OA), Prostate Disorder, Thyroid Disorder Additional Past Medical History / Comment(s): BPH., O2 @ 2 L@ HS., CHRONIC BACK PAIN, CONSTIPATION, SOB W/ACTIVITY., edema lower legs & feet much improved History of Any Multi-Drug Resistant Organisms: None Reported Past Surgical History: Adenoidectomy, Appendectomy, Cholecystectomy, Heart Catheterization With Stent, Joint Replacement, Tonsillectomy Additional Past Surgical History / Comment(s): TOTAL LEFT SHOULDER, TOTAL LEFT HIP, alexandro carpel tunnel, alexandro cataracts, TOTAL RIGHT SHOULDER ARTHROPLASTY 017, Past Anesthesia/Blood Transfusion Reactions: Previous Problems w/ Anesthesia, Postoperative Nausea & Vomiting (PONV) Additional Past Anesthesia/Blood Transfusion Reaction / Comment(s): . Date of Last Stent Placement:: 01-02-21 Past Psychological History: Anxiety, Depression Smoking Status: Former smoker Past Alcohol Use History: None Reported Past Drug Use History: None Reported - Past Family History Mother Family Medical History: Congestive Heart Failure (CHF), Diabetes Mellitus Father Family Medical History: Cancer Additional Family Medical History / Comment(s): lung Brother(s) Family Medical History: COPD General Exam Limitations: no limitations General appearance: alert, in no apparent distress Head exam: Present: atraumatic, normocephalic, normal inspection Eye exam: Present: normal appearance, PERRL Pupils: Present: normal accommodation ENT exam: Present: normal exam, normal oropharynx, mucous membranes moist Neck exam: Present: normal inspection, full ROM Respiratory exam: Present: normal lung sounds bilaterally Cardiovascular Exam: Present: regular rate, normal rhythm, normal heart sounds GI/Abdominal exam: Present: soft, normal bowel sounds Extremities exam: Present: full ROM, pedal edema Back exam: Present: normal inspection, full ROM Neurological exam: Present: alert, oriented X3, CN II-XII intact Psychiatric exam: Present: normal affect, normal mood Skin exam: Present: warm, dry Course Vital Signs 09/03/22 09/03/22 16:54 20:39 Temperature 97.9 F Pulse Rate 88 81 Respiratory 18 18 Rate Blood Pressure 105/67 101/67 O2 Sat by Pulse 96 96 Oximetry EKG Findings - EKG Comments: EKG Findings:: An EKG was obtained was interpreted by myself showing a rate of 80, QRS duration of 175, QTC of 475. This EKG showed an atrial fibrillation with no ST segment elevation or depression noted. These findings are consistent with the patient's history of atrial fibrillation. Medical Decision Making - Medical Decision Making Was pt. sent in by a medical professional or institution (, PA, [employer], urgent care, hospital, or longterm...) When possible be specific @ -No Did you speak to anyone other than the patient for history (EMS, parent, family, police, friend...)? What history was obtained from this source @ -Yes, family is present the bedside and did confirm that the patient has had worsening swelling and difficulty laying flat and night. Did you review nursing and triage notes (agree or disagree)? Why? @ -I reviewed and agree with nursing and triage notes Were old charts reviewed (outside hosp., previous admission, EMS record, old EKG, old radiological studies, urgent care reports/EKG's, longterm records)? Report findings @ -No old charts were reviewed Differential Diagnosis (chest pain, altered mental status, abdominal pain women, abdominal pain men, vaginal bleeding, weakness, fever, dyspnea, syncope, headache, dizziness, GI bleed, back pain, seizure, CVA, palpatations, mental health)? @ -CHF exacerbation, pneumonia, pneumothorax EKG interpreted by me (3pts min.). @ -As above X-rays interpreted by me (1pt min.). @ -Chest x-ray was obtained and was interpreted by myself showing cardiomegaly, pulmonary vascular congestion and bilateral pleural effusions. CT interpreted by me (1pt min.). @ -None done U/S interpreted by me (1pt. min.). @ -None done What testing was considered but not performed or refused? (CT, X-rays, U/S, labs)? Why? @ -None What meds were considered but not given or refused? Why? @ -None Did you discuss the management of the patient with other professionals (professionals i.e. , PA, [employer], lab, RT, psych nurse, social media sr strategy manager, farm field manager, teacher, head correction officer, pillowcase cleaner)? Give summary @ -Yes, Dr. Greer was contacted regarding place and the patient observation and did agree. Was smoking cessation discussed for >3mins.? @ -No Was critical care preformed (if so, how long)? @ -No Were there social determinants of health that impacted care today? How? (Homel essness, low income, unemployed, alcoholism, drug addiction, transportation, low edu. Level, literacy, decrease access to med. care, custodial, rehab)? @ -No Was there de-escalation of care discussed even if they declined (Discuss DNR or withdrawal of care, Hospice)? DNR status @ -No What co-morbidities impacted this encounter? (DM, HTN, Smoking, COPD, CAD, Cancer, CVA, ARF, Chemo, Hep., AIDS, mental health diagnosis, sleep apnea, morbid obesity)? @ -Atrial fibrillation, hypertension, COPD Was patient admitted / discharged? Hospital course, mention meds given and route, prescriptions, significant lab abnormalities, going to OR and other pertinent info. @ -The patient was seen and evaluated emergency department. Physical exam, the patient was resting in bed without any acute distress. Vital signs admission were stable. Due to the nature the patient's complaints, laboratory workup was obtained in triage. All laboratory workup was within normal limits however proBNP was elevated and due to the patient's is a closed exam findings consistent with a CHF exacerbation, the patient will be given Lasix and will be placed observation for further evaluation by cardiology. The patient himself was appreciative and remained stable. The patient was placed observation in stable condition. Undiagnosed new problem with uncertain prognosis? @ -No Drug Therapy requiring intensive monitoring for toxicity (Heparin, Nitro, Insulin, Cardizem)? @ -No Were any procedures done? @ -No Diagnosis/symptom? @ -CHF exacerbation Acute, or Chronic, or Acute on Chronic? @ -Acute on chronic Uncomplicated (without systemic symptoms) or Complicated (systemic symptoms)? @ -Uncomplicated Side effects of treatment? @ -No Exacerbation, Progression, or Severe Exacerbation? @ -Exacerbation Poses a threat to life or bodily function? How? (Chest pain, [place], [place], pneumonia, PE, COPD, DKA, ARF, appy, cholecystitis, CVA, Diverticulitis, Homicidal, Suicidal, threat to staff... and all critical care pts) @ -Yes, worsening exacerbation can lead to permanent damage and possible . - Lab Data Result diagrams: 09/03/22 18:48 09/03/22 18:48 Lab Results 09/03/22 09/03/22 09/03/22 Range/Units 18:48 18:48 18:48 WBC 6.0 (3.8-10.6) k/uL RBC 4.41 (4.30-5.90) m/uL Hgb 12.3 L (13.0-17.5) gm/dL Hct 38.0 L (39.0-53.0) % MCV 86.3 (80.0-100.0) fL MCH 28.0 (25.0-35.0) pg MCHC 32.4 (31.0-37.0) g/dL RDW 16.3 H (11.5-15.5) % Plt Count 248 (150-450) k/uL MPV 7.3 Neutrophils % 70 % Lymphocytes % 19 % Monocytes % 7 % Eosinophils % 2 % Basophils % 0 % Neutrophils # 4.2 (1.3-7.7) k/uL Lymphocytes # 1.1 (1.0-4.8) k/uL Monocytes # 0.4 (0-1.0) k/uL Eosinophils # 0.1 (0-0.7) k/uL Basophils # 0.0 (0-0.2) k/uL Anisocytosis Slight PT 27.2 H (9.0-12.0) sec INR 2.8 H (<1.2) APTT 35.6 H (22.0-30.0) sec Sodium 134 L (137-145) mmol/L Potassium 4.5 (3.5-5.1) mmol/L Chloride 94 L (98-107) mmol/L Carbon Dioxide 33 H (22-30) mmol/L Anion Gap 7 mmol/L BUN 22 H (9-20) mg/dL Creatinine 0.93 (0.66-1.25) mg/dL Est GFR (CKD-EPI)AfAm 88 (>60 ml/min/1.73 sqM) Est GFR (CKD-EPI)NonAf 76 (>60 ml/min/1.73 sqM) Glucose 94 (74-99) mg/dL Calcium 8.1 L (8.4-10.2) mg/dL Magnesium 2.1 (1.6-2.3) mg/dL Total Bilirubin 1.3 (0.2-1.3) mg/dL AST 60 H (17-59) U/L ALT 47 (4-49) U/L Alkaline Phosphatase 157 H (38-126) U/L Troponin I (0.000-0.034) ng/mL NT-Pro-B Natriuret Pep pg/mL Total Protein 6.4 (6.3-8.2) g/dL Albumin 3.6 (3.5-5.0) g/dL 09/03/22 09/03/22 Range/Units 18:48 20:39 WBC (3.8-10.6) k/uL RBC (4.30-5.90) m/uL Hgb (13.0-17.5) gm/dL Hct (39.0-53.0) % MCV (80.0-100.0) fL MCH (25.0-35.0) pg MCHC (31.0-37.0) g/dL RDW (11.5-15.5) % Plt Count (150-450) k/uL MPV Neutrophils % % Lymphocytes % % Monocytes % % Eosinophils % % Basophils % % Neutrophils # (1.3-7.7) k/uL Lymphocytes # (1.0-4.8) k/uL Monocytes # (0-1.0) k/uL Eosinophils # (0-0.7) k/uL Basophils # (0-0.2) k/uL Anisocytosis PT (9.0-12.0) sec INR (<1.2) APTT (22.0-30.0) sec Sodium (137-145) mmol/L Potassium (3.5-5.1) mmol/L Chloride (98-107) mmol/L Carbon Dioxide (22-30) mmol/L Anion Gap mmol/L BUN (9-20) mg/dL Creatinine (0.66-1.25) mg/dL Est GFR (CKD-EPI)AfAm (>60 ml/min/1.73 sqM) Est GFR (CKD-EPI)NonAf (>60 ml/min/1.73 sqM) Glucose (74-99) mg/dL Calcium (8.4-10.2) mg/dL Magnesium (1.6-2.3) mg/dL Total Bilirubin (0.2-1.3) mg/dL AST (17-59) U/L ALT (4-49) U/L Alkaline Phosphatase (38-126) U/L Troponin I 0.048 H* (0.000-0.034) ng/mL NT-Pro-B Natriuret Pep 7450 pg/mL Total Protein (6.3-8.2) g/dL Albumin (3.5-5.0) g/dL Disposition Clinical Impression: CHF (congestive heart failure) Disposition: ADMITTED IP TO THIS [facility] Condition: Stable Is patient prescribed a controlled substance at d/c from ED?: No Referrals: Ty Farrar MD [Primary Care Provider] - 1-2 days Time of Disposition: 21:00 Decision to Admit Reason: Admit from EC Decision Date: 09/03/22 Decision Time: 21:00
[2022-09-03] MEDS ORDERED: ALBUTEROL NEBULIZED 2.5 MG/3 ML INHALATION PRN (23:43)
[2022-09-04] MEDS: METOPROLOL SUCCINATE (ER) 50 MG TAB.ER.24H PO SCH ×2 (02:27→23:45)
[2022-09-04] MEDS: LEVOTHYROXINE 100 MCG TAB PO SCH (07:03)
[2022-09-04] MEDS: TAMSULOSIN 0.4 MG CAP.ER.24H PO SCH ×2 (07:03→19:48)
[2022-09-04] MEDS: SYMBICORT 160-4.5 MCG INHALER INHALATION SCH ×2 (07:47→19:38)
[2022-09-04] MEDS: MULTIVITAMINS, THERA 1 EACH TAB PO SCH (08:02)
[2022-09-04] MEDS: DONEPEZIL 10 MG TAB PO SCH (08:02)
[2022-09-04] MEDS: MAGNESIUM OXIDE 400 MG TAB PO SCH (08:02)
[2022-09-04] MEDS: FINASTERIDE 5 MG TAB PO SCH (08:02)
[2022-09-04] MEDS: CHOLECALCIFEROL 25 MCG (1000 IU) TABLET PO SCH (08:02)
[2022-09-04] MEDS: lisinopriL 20 MG TAB PO SCH (08:02)
[2022-09-04] MEDS: DULoxetine HCL 60 MG CAPSULE.DR PO SCH ×2 (08:02→17:13)
[2022-09-04] MEDS: POTASSIUM CHLORIDE ER 20 MEQ TAB.ER PO SCH ×2 (08:02→17:13)
[2022-09-04] MEDS: FOLIC ACID-VIT B COMPLEX-VIT C 1 CAP PO SCH (08:57)
[2022-09-04] MEDS: FUROSEMIDE 10 MG/ML 10 ML VIAL IV SCH ×2 (08:57→19:48)
--- NOTE | 2022-09-04 12:01 | P.CRDCN ---
History of Present Illness Consult date: 09/04/22 Consult reason: congestive heart failure History of present illness: History of present illness: This is an 82-year-old male patient of Dr. Estevez with past medical history of COPD, hypertension, benign prostatic hypertrophy, chronic back pain, persistent atrial fibrillation on Coumadin, tobacco use, systolic heart failure, cardiomyopathy, coronary artery disease status post PCI, depression. Patient presented to the hospital due to difficulty in breathing that have been going on for the past 2 nights and worsening. He states he's had lower extremity edema. No weight gain. He complains of a cough with phlegm that occurs one time in the morning only. He denies any wheezing. No fever or chills. Patient is status post 1 dose of IV Lasix 40 mg and states he has been urinating well since. EKG atrial fibrillation with left bundle branch block Chest x-ray: Cardiomegaly, pulmonary vascular congestion and bilateral pleural effusion WBC 6, hemoglobin 12.3, platelet count 248. INR 2.8. Sodium 134, potassium 4.5 Home cardiac medications: Lipitor 40 mg daily, Lasix 80 mg twice daily, levothyroxine 200 mg daily, magnesium 250 mg daily, Toprol-XL 50 mild grams at bedtime, K-Dur 20 milliequivalents twice daily, Coumadin 7.5 alternating with 5 mg. Echocardiogram 07/2021 revealed normal LV systolic function 50-55%, hypokinetic basal inferior wall, left atrial enlargement, mild tricuspid regurgitation. ZAK 01/2021 revealed mild mitral regurgitation, no evidence of PFO possible small thrombus in the left atrial appendage, global hypokinesis with EF of 35- 40%. Unable to proceed with cardioversion Lexiscan stress test 08/01/2022 revealed nonspecific EKG portion secondary to baseline EKG abnormalities. Fixed inferior perfusion defect consistent with diaphragmatic attenuation artifact. No other myocardial perfusion defects to suggest ischemia. EF 35%. Review Of Systems: At the time of my evaluation: Constitutional: No fever, no chills. No weakness, fatigue or lethargy. EENT: No headache. No dizziness. Lungs: Reports shortness of breath, cough, no sputum production. No wheezing. Cardiovascular: No chest pain, reports lower extremity edema. No palpitations. No paroxysmal nocturnal dyspnea. No orthopnea. No lightheadedness or dizziness. No syncopal episodes. Abdominal: No abdominal pain. No nausea, vomiting. No diarrhea. No constipation. No bloody or tarry stools. Genitourinary: No dysuria.. No urinary retention. Musculoskeletal: No myalgias. No muscle weakness, no frequent falls. No back pain. No neck pain. Integumentary: No wounds. No rash. No unusual bruising. Neurologic: No aphasia. No facial droop. No change in mentation. No head injury. No headache. Physical examination: Gen: This is an 82-year-old male. He is resting on the edge of the ER stretcher. He appears to be in no acute distress. VS: reviewed , heart rate in the 80s. HEENT: Head is atraumatic, normocephalic. Pupils equal, round. Sclerae is anicteric. NECK: Supple. No JVD. . LUNGS: Diminished with crackles bilaterally bases. No intercostal retractions. HEART: Regular rate and rhythm. No murmur. ABDOMEN: Soft No tenderness. EXTREMITIES: 2+ pedal edema. No calf tenderness. NEUROLOGICAL: Patient is awake, alert and oriented x3. Assessment: Acute on chronic systolic heart failure Persistent atrial fibrillation Hypertension Hyperlipidemia COPD History of tobacco use and dependence Cardiomyopathy with EF of 35-40% felt to be out of proportion to CAD Coronary artery disease status post PCI of the LAD Depression Plan: Resume patient's home cardiac medications Continue Lasix IV 60 mg twice daily Monitor I&O, daily weights and I's and renal function DC hose bilaterally Obtain 2-D echocardiogram and Doppler study to assess cardiac structure and function Further recommendations to follow based upon clinical course Thank you kindly for this consultation. Nurse practitioner note has been reviewed, I agree with documented findings and plan of care. Patient was seen and examined. Past Medical History Past Medical History: Atrial Fibrillation, COPD, Hearing Disorder / Deafness, Hyperlipidemia, Hypertension, Osteoarthritis (OA), Prostate Disorder, Thyroid Disorder Additional Past Medical History / Comment(s): BPH., O2 @ 2 L@ HS., CHRONIC BACK PAIN, CONSTIPATION, SOB W/ACTIVITY., edema lower legs & feet much improved History of Any Multi-Drug Resistant Organisms: None Reported Past Surgical History: Adenoidectomy, Appendectomy, Cholecystectomy, Heart Elizabeth terization With Stent, Joint Replacement, Tonsillectomy Additional Past Surgical History / Comment(s): TOTAL LEFT SHOULDER, TOTAL LEFT HIP, alexandro carpel tunnel, alexandro cataracts, TOTAL RIGHT SHOULDER ARTHROPLASTY 01-22-2017, Past Anesthesia/Blood Transfusion Reactions: Previous Problems w/ Anesthesia, Postoperative Nausea & Vomiting (PONV) Additional Past Anesthesia/Blood Transfusion Reaction / Comment(s): . Date of Last Stent Placement:: 01-02-21 Past Psychological History: Anxiety, Depression Smoking Status: Former smoker Past Alcohol Use History: None Reported Past Drug Use History: None Reported - Past Family History Mother Family Medical History: Congestive Heart Failure (CHF), Diabetes Mellitus Father Family Medical History: Cancer Additional Family Medical History / Comment(s): lung Brother(s) Family Medical History: COPD Medications and Allergies Home Medications Medication Instructions Recorded Confirmed Type Budesonide/Formoterol Fumarate 1 puff INHALATION RT-BID 05/03/15 09/03/22 Histor y [Symbicort 160-4.5 Mcg Inhaler] DULoxetine HCL [Cymbalta] 60 mg PO BID@0900,1700 05/24/16 09/03/22 History Moexipril HCl [Univasc] 15 mg PO DAILY@0900 05/24/16 09/03/22 History Dutasteride 0.5 mg PO DAILY@0900 09/06/17 09/03/22 History Levothyroxine Sodium 200 mcg PO DAILY@0700 12/30/20 09/03/22 History Multivit-Min/Folic/Vit K/Lycop 1 tab PO DAILY 12/30/20 09/03/22 History [Men's Multivitamin Tablet] Tamsulosin [Flomax] 0.4 mg PO BID@0700,2100 12/30/20 09/03/22 History Zinc 50 mg PO DAILY 12/30/20 09/03/22 History Warfarin [Coumadin] 5 mg PO SUTUWETHSA@1700 01/16/21 09/04/22 History Atorvastatin [Lipitor] 40 mg PO HS@1700 07/31/21 09/03/22 History ARIPiprazole [Abilify] 2 mg PO DAILY@0700 09/03/22 09/04/22 History Albuterol Inhaler [Ventolin Hfa 1 - 2 puff INHALATION RT-Q6H PRN 09/03/22 09/03/22 History Inhaler] Albuterol Nebulized [Ventolin 2.5 mg INHALATION RT-TID PRN 09/03/22 09/03/22 History Nebulized] Cholecalciferol [Vitamin D3 (25 25 mcg PO DAILY 09/03/22 09/03/22 History Mcg = 1000 Iu)] Donepezil [Aricept] 10 mg PO DAILY@0900 09/03/22 09/03/22 History Furosemide [Lasix] 80 mg PO BID@0700,1500 09/03/22 09/03/22 History Magnesium 250 mg PO DAILY 09/03/22 09/03/22 History Methadone [Dolophine] 5 mg PO Q8H PRN 09/03/22 09/03/22 History Metoprolol Succinate (ER) [Toprol 50 mg PO HS@2300 09/03/22 09/03/22 History Xl] Potassium Chloride ER [K-Dur 20] 20 meq PO BID@0900,1600 09/03/22 09/03/22 History Super B Complex With Folic Acid 1 tab PO DAILY 09/03/22 09/03/22 History And Vitamin C Ubidecarenone [Coenzyme Q10] 400 mg PO DAILY@1700 09/03/22 09/03/22 History Warfarin [Coumadin] 7.5 mg PO MOFR@1700 09/03/22 09/04/22 History busPIRone HCl [Buspar] 10 mg PO DAILY 09/03/22 09/04/22 History cefaDROXiL [Duricef] 500 mg PO BID@0900,1700 09/03/22 09/03/22 History Allergies Allergy/AdvReac Type Severity Reaction Status Date / Time No Known Allergies Allergy Verified 09/03/22 23:18 Physical Exam Vitals: Vital Signs Temp Pulse Pulse Resp BP Pulse Ox 09/04/22 08:00 87 09/04/22 07:56 97.9 F 75 18 126/85 99 09/04/22 07:50 100 09/04/22 04:00 78 18 113/82 97 09/04/22 02:01 82 18 116/82 99 09/03/22 23:30 80 20 112/73 97 09/03/22 23:00 73 11 L 106/71 96 09/03/22 22:30 90 19 103/77 98 09/03/22 22:00 74 14 99/63 95 07/03/23 21:44 80 18 99/63 96 09/03/22 20:39 81 18 101/67 96 09/03/22 16:54 97.9 F 88 18 105/67 96 Intake and Output 09/03/22 09/04/22 09/04/22 22:59 06:59 14:59 Other: Weight 97.976 kg Results 09/03/22 18:48 09/03/22 18:48 Cardiac Enzymes 09/03/22 09/03/22 09/03/22 Range/Units 18:48 18:48 20:25 AST 60 H (17-59) U/L Troponin I 0.048 H* 0.048 H* (0.000-0.034) ng/mL Coagulation 09/03/22 Range/Units 18:48 PT 27.2 H (9.0-12.0) sec APTT 35.6 H (22.0-30.0) sec CBC 09/03/22 Range/Units 18:48 WBC 6.0 (3.8-10.6) k/uL RBC 4.41 (4.30-5.90) m/uL Hgb 12.3 L (13.0-17.5) gm/dL Hct 38.0 L (39.0-53.0) % Plt Count 248 (150-450) k/uL Comprehensive Metabolic Panel 09/03/22 Range/Units 18:48 Sodium 134 L (137-145) mmol/L Potassium 4.5 (3.5-5.1) mmol/L Chloride 94 L (98-107) mmol/L Carbon Dioxide 33 H (22-30) mmol/L BUN 22 H (9-20) mg/dL Creatinine 0.93 (0.66-1.25) mg/dL Glucose 94 (74-99) mg/dL Calcium 8.1 L (8.4-10.2) mg/dL AST 60 H (17-59) U/L ALT 47 (4-49) U/L Alkaline Phosphatase 157 H (38-126) U/L Total Protein 6.4 (6.3-8.2) g/dL Albumin 3.6 (3.5-5.0) g/dL Current Medications Generic Name Dose Route Start Last Admin Trade Name Freq PRN Reason Stop Dose Admin Albuterol Sulfate 2.5 mg 09/03/22 23:43 Albuterol Nebulized 2.5 Mg/3 Ml INHALATION RT-TID PRN Shortness Of Breath Atorvastatin Calcium 40 mg 09/04/22 17:00 Atorvastatin 40 Mg Tab PO HS@1700 [facility] Budesonide/Formoterol Fumarate 1 puff 09/04/22 08:00 09/04/22 07:47 Symbicort 160-4.5 Mcg Inhaler INHALATION 1 puff RT-BID [facility] Administration Cholecalciferol 25 mcg 09/04/22 09:00 09/04/22 08:02 Cholecalciferol 25 Mcg (1000 Iu) Tablet PO 25 mcg DAILY [facility] Administration Donepezil HCl 10 mg 09/04/22 09:00 09/04/22 08:02 Donepezil 10 Mg Tab PO 10 mg DAILY@0900 [facility] Administration Duloxetine HCl 60 mg 09/04/22 09:00 09/04/22 08:02 Duloxetine Hcl 60 Mg Capsule.Dr PO 60 mg BID@0900,1700 [facility] Administration Finasteride 5 mg 09/04/22 09:00 09/04/22 08:02 Finasteride 5 Mg Tab PO 5 mg DAILY@0900 [facility] Administration Levothyroxine Sodium 200 mcg 09/04/22 07:00 09/04/22 07:03 Levothyroxine 100 Mcg Tab PO 200 mcg DAILY@0700 [facility] Administration Lisinopril 20 mg 09/04/22 09:00 09/04/22 08:02 Lisinopril 20 Mg Tab PO 20 mg DAILY@0900 [facility] Administration Magnesium Oxide 400 mg 09/04/22 09:00 09/04/22 08:02 Magnesium Oxide 400 Mg Tab PO 400 mg DAILY [facility] Administration Metoprolol Succinate 50 mg 09/03/22 23:30 09/04/22 02:27 Metoprolol Succinate (Er) 50 Mg Tab.Er.24h PO 50 mg HS@2300 [facility] Administration Miscellaneous Information 1 each 09/03/22 23:45 Warfarin Per Pharmacy MISCELLANE DIRECTED PRN Per Protocol Protocol Multivit/Ca Carb/B Cmplx/FA/Prenat 1 each 09/04/22 09:00 Folic Acid-Vit B Complex-Vit C 1 Cap PO DAILY [facility] Multivitamins 1 each 09/04/22 09:00 09/04/22 08:02 Multivitamins, Thera 1 Each Tab PO 1 each DAILY [facility] Administration Naloxone HCl 0.2 mg 09/03/22 21:39 Naloxone 0.4 Mg/Ml 1 Ml Vial IV Q2M PRN Opioid Reversal Potassium Chloride 20 meq 09/04/22 09:00 09/04/22 08:02 Potassium Chloride Er 20 Meq Tab.Er PO 20 meq BID@0900,1600 [facility] Administration Tamsulosin HCl 0.4 mg 09/04/22 07:00 09/04/22 07:03 Tamsulosin 0.4 Mg Cap.Er.24h PO 0.4 mg BID@0700,2100 [facility] Administration Intake and Output 09/03/22 09/04/22 09/04/22 22:59 06:59 14:59 Other: Weight 97.976 kg 09/03/22 18:48 09/03/22 18:48
[2022-09-04] MEDS ORDERED: LORazepam 0.5 MG TAB PO PRN (12:38)
[2022-09-04] MEDS ORDERED: ACETAMINOPHEN TAB 325 MG TAB PO PRN (12:38)
[2022-09-04] MEDS ORDERED: CALCIUM CARBONATE 500 MG CHEWABLE PO PRN (12:38)
[2022-09-04] MEDS ORDERED: MELATONIN 3 MG TABLET PO PRN (12:38)
[2022-09-04] MEDS ORDERED: ONDANSETRON 4 MG/2 ML VIAL IVP PRN (12:38)
[2022-09-04] MEDS ORDERED: LACTULOSE 20 GM/30 ML CUP PO PRN (12:38)
--- NOTE | 2022-09-04 12:39 | P.HPIM ---
History of Present Illness H&P Date: 09/04/22 Chief Complaint: Short of breath This is a pleasant 82-year-old patient, follows with Dr. Ty Farrar. Chronic stable medical conditions include atrial fibrillation, COPD, hard of hearing, hypertension, hyperlipidemia, osteoporosis, hypothyroid. Does use 2 L of oxygen at night. Has chronic back pain. Because of narcotics as to bowel movements are weak. Does use a cane. Lives with his . CAD with stent. Patient presents with progressive shortness of breath coming on for a few days over 3 weeks. Increasing lower extremity edema. The sleep with one pillow at night. Appetite is good. No fever no chills. More short of breath. Found to be in CHF in the ER. No cough. Started on IV Lasix Review of systems: GEN.: Tired EYES: None HEENT: Decreased hearing NECK: None RESPIRATORY: As above CARDIOVASCULAR: As above GASTROINTESTINAL: 2 BMs a week GENITOURINARY: None MUSCULOSKELETAL: Joint pains LYMPHATICS: None HEMATOLOGICAL: None PSYCHIATRY: None NEUROLOGICAL: Uses a cane Past medical history to include: atrial fibrillation, COPD, hard of hearing, hypertension, hyperlipidemia, osteoporosis, hypothyroid. 2 L of oxygen at night. CAD with stent. Depression and anxiety. BPH Social history: Patient smoked for about 40 years. About 50 cigars per week. Stop smoking in 2010. No alcohol. Lives with his . Physical examination: VITAL SIGNS: 97.9, 84, 18, 91/57, 98% on room air GENERAL: BMI 27.7, reclining in bed awake tired. EYES: Pupils equal. Conjunctiva normal. HEENT: External appearance of nose and ears normal, oral cavity grossly normal. Decreased hearing NECK: JVD raised; masses not palpable. HEART: First and second heart sounds are normal; significant edema. LUNGS: Respiratory rate increased; decreased breath sounds. ABDOMEN: Soft, nontender, liver spleen not palpable, no masses palpable. PSYCH: Alert and oriented x3; mood and affect normal. MUSCULOSKELETAL:No Clubbing/cyanosis;muscles-grossly intact. OA NEUROLOGICAL: Cranial nerves grossly intact; no facial asymmetry, power and sensation grossly intact. LYMPHATICS: No lymph nodes palpable in the axilla and neck INVESTIGATIONS, reviewed in the clinical context: White count 60 globin 12.3 platelets 248 INR 2.8 sodium 134 potassium 4.5 BUN 22 creatinine 0.93 Troponin I 0.048, 0.048 ProBNP 7450 EKG tracing personally reviewed by me-atrial fibrillation. Heart rate 80. Left bundle-branch block. Chest x-ray film personally reviewed by me-cardiomegaly. Pulmonary edema Assessment and plan: -Acute on chronic congestive heart failure exacerbation from diastolic dysfunction prior EF 55-60%. IV Lasix 60 mg every 12. Fluid restriction 1500 mL a day. Strict I's and O's. 2-D echocardiogram. -Persistent atrial fibrillation: Rate controlled Toprol-XL 0 mg daily at bedtime. 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 Ventolin when necessary -Depression and anxiety Cymbalta 60 mg twice a day -Hyperlipidemia Lipitor 40 mg daily at bedtime -Essential hypertension Toprol-XL 25 mg daily at bedtime. Univasc 15 mg daily -Primary osteoarthritis Pain medications as needed -BPH, causing urine outflow obstruction Flomax -Chronic hypoxic respiratory failure, nocturnal 2 L of oxygen at home, secondary to COPD -Hypothyroid Synthroid 200 g daily -Chronic gait dysfunction uses a cane and a baseline -Full code Discussed with patient and . Question answered.Given the complexity and severity of patient's condition expect the patient to be in the hospital at least for 2 overnights Past Medical History Past Medical History: Atrial Fibrillation, COPD, Hearing Disorder / Deafness, Hyperlipidemia, Hypertension, Osteoarthritis (OA), Prostate Disorder, Thyroid Disorder Additional Past Medical History / Comment(s): BPH., O2 @ 2 L@ HS., CHRONIC BACK PAIN, CONSTIPATION, SOB W/ACTIVITY., edema lower legs & feet much improved History of Any Multi-Drug Resistant Organisms: None Reported Past Surgical History: Adenoidectomy, Appendectomy, Cholecystectomy, Heart Catheterization With Stent, Joint Replacement, Tonsillectomy Additional Past Surgical History / Comment(s): TOTAL LEFT SHOULDER, TOTAL LEFT HIP, alexandro carpel tunnel, alexandro cataracts, TOTAL RIGHT SHOULDER ARTHROPLASTY 01-22-2017, Past Anesthesia/Blood Transfusion Reactions: Previous Problems w/ Anesthesia, Postoperative Nausea & Vomiting (PONV) Additional Past Anesthesia/Blood Transfusion Reaction / Comment(s): . Date of Last Stent Placement:: 01-02-21 Past Psychological History: Anxiety, Depression Smoking Status: Former smoker Past Alcohol Use History: None Reported Past Drug Use History: None Reported - Past Family History Mother Family Medical History: Congestive Heart Failure (CHF), Diabetes Mellitus Father Family Medical History: Cancer Additional Family Medical History / Comment(s): lung Brother(s) Family Medical History: COPD Medications and Allergies Home Medications Medication Instructions Recorded Confirmed Type Budesonide/Formoterol Fumarate 1 puff INHALATION RT-BID 05/03/15 09/03/22 History [Symbicort 160-4.5 Mcg Inhaler] DULoxetine HCL [Cymbalta] 60 mg PO BID@0900,1700 05/24/16 09/03/22 History Moexipril HCl [Univasc] 15 mg PO DAILY@0900 05/24/16 09/03/22 History Dutasteride 0.5 mg PO DAILY@0900 09/06/17 09/03/22 History Levothyroxine Sodium 200 mcg PO DAILY@0700 12/30/20 09/03/22 History Multivit-Min/Folic/Vit K/Lycop 1 tab PO DAILY 12/30/20 09/03/22 History [Men's Multivitamin Tablet] Tamsulosin [Flomax] 0.4 mg PO BID@0700,2100 12/30/20 09/03/22 History Zinc 50 mg PO DAILY 12/30/20 09/03/22 History Warfarin [Coumadin] 5 mg PO SUTUWETHSA@1700 01/16/21 09/04/22 History Atorvastatin [Lipitor] 40 mg PO HS@1700 07/31/21 09/03/22 History ARIPiprazole [Abilify] 2 mg PO DAILY@0700 09/03/22 09/04/22 History Albuterol Inhaler [Ventolin Hfa 1 - 2 puff INHALATION RT-Q6H PRN 09/03/22 09/03/22 History Inhaler] Albuterol Nebulized [Ventolin 2.5 mg INHALATION RT-TID PRN 09/03/22 09/03/22 History Nebulized] Cholecalciferol [Vitamin D3 (25 25 mcg PO DAILY 09/03/22 09/03/22 History Mcg = 1000 Iu)] Donepezil [Aricept] 10 mg PO DAILY@0900 09/03/22 09/03/22 History Furosemide [Lasix] 80 mg PO BID@0700,1500 09/03/22 09/03/22 History Magnesium 250 mg PO DAILY 09/03/22 09/03/22 History Methadone [Dolophine] 5 mg PO Q8H PRN 09/03/22 09/03/22 History Metoprolol Succinate (ER) [Toprol 50 mg PO HS@2300 09/03/22 09/03/22 History Xl] Potassium Chloride ER [K-Dur 20] 20 meq PO BID@0900,1600 09/03/22 09/03/22 History Super B Complex With Folic Acid 1 tab PO DAILY 09/03/22 09/03/22 History And Vitamin C Ubidecarenone [Coenzyme Q10] 400 mg PO DAILY@1700 09/03/22 09/03/22 History Warfarin [Coumadin] 7.5 mg PO MOFR@1700 09/03/22 09/04/22 History busPIRone HCl [Buspar] 10 mg PO DAILY 09/03/22 09/04/22 History cefaDROXiL [Duricef] 500 mg PO BID@0900,1700 09/03/22 09/03/22 History Allergies Allergy/AdvReac Type Severity Reaction Status Date / Time No Known Allergies Allergy Verified 09/03/22 23:18 Physical Exam Vitals: Vital Signs Temp Pulse Pulse Resp BP Pulse Ox 09/04/22 09:34 80 18 101/68 99 09/04/22 08:00 87 09/04/22 07:56 97.9 F 75 18 126/85 99 09/04/22 07:50 100 09/04/22 04:00 78 18 113/82 97 09/04/22 02:01 82 18 116/82 99 09/03/22 23:30 80 20 112/73 97 09/03/22 23:00 73 11 L 106/71 96 09/03/22 22:30 90 19 103/77 98 09/03/22 22:00 74 14 99/63 95 09/03/22 21:44 80 18 99/63 96 09/03/22 20:39 81 18 101/67 96 09/03/22 16:54 97.9 F 88 18 105/67 96 Intake and Output 09/03/22 09/04/22 09/04/22 22:59 06:59 14:59 Other: Weight 97.976 kg Results CBC & Chem 7: 09/03/22 18:48 09/03/22 18:48 Labs: Abnormal Lab Results - Last 24 Hours (Table) 09/03/22 09/03/22 09/03/22 Range/Units 18:48 18:48 18:48 Hgb 12.3 L (13.0-17.5) gm/dL Hct 38.0 L (39.0-53.0) % RDW 16.3 H (11.5-15.5) % PT 27.2 H (9.0-12.0) sec INR 2.8 H (<1.2) APTT 35.6 H (22.0-30.0) sec Sodium 134 L (137-145) mmol/L Chloride 94 L (98-107) mmol/L Carbon Dioxide 33 H (22-30) mmol/L BUN 22 H (9-20) mg/dL Calcium 8.1 L (8.4-10.2) mg/dL AST 60 H (17-59) U/L Alkaline Phosphatase 157 H (38-126) U/L Troponin I (0.000-0.034) ng/mL 09/03/22 09/03/22 Range/Units 18:48 20:25 Hgb (13.0-17.5) gm/dL Hct (39.0-53.0) % RDW (11.5-15.5) % PT (9.0-12.0) sec INR (<1.2) APTT (22.0-30.0) sec Sodium (137-145) mmol/L Chloride (98-107) mmol/L Carbon Dioxide (22-30) mmol/L BUN (9-20) mg/dL Calcium (8.4-10.2) mg/dL AST (17-59) U/L Alkaline Phosphatase (38-126) U/L Troponin I 0.048 H* 0.048 H* (0.000-0.034) ng/mL
--- NOTE | 2022-09-04 13:10 | CA ---
Transthoracic Echo Report Name: Dwayne Mercado Age: 82 Gender: M : 1940 Exam Date: 09/04/2022 11:22 Exam Location: [place] Ht (in): 74 Wt (lb): 216 Ordering Physician: Kamila Kessler Attending/Referring Phys: [id number], [place] [employer] Or Instructor Scarlett Devi [facility] Procedure CPT: Indications: LVF Cardiac Hx: Technical Quality: Fair Contrast 1: Total Dose (mL): Contrast 2: Total Dose (mL): MEASUREMENTS (Male / Female) Normal Values 2D ECHO LV Diastolic Diameter PLAX 4.9 cm 4.2 - 5.9 / 3.9 - 5.3 cm LV Systolic Diameter PLAX 4.6 cm IVS Diastolic Thickness 1.6 cm 0.6 - 1.0 / 0.6 - 0.9 cm LVPW Diastolic Thickness 1.6 cm 0.6 - 1.0 / 0.6 - 0.9 cm LV Relative Wall Thickness 0.6 LVOT Diameter 2.0 cm LV Diastolic Volume MOD BP 105.2 cm??? 67 - 155 / 56 - 104 cm??? LV Systolic Volume MOD BP 85.3 cm??? 22 - 58 / 19 - 49 cm??? LV Ejection Fraction MOD BP 18.9 % >= 55 % LV Cardiac Index MOD BP 673.5 cm???/min???m??? LV Diastolic Volume MOD 4C 108.0 cm??? LV Systolic Volume MOD 4C 85.6 cm??? LV Ejection Fraction MOD 4C 20.7 % LV Cardiac Index MOD 4C 756.5 cm???/min???m??? LV Diastolic Length 4C 9.0 cm LV Systolic Length 4C 8.7 cm LV Diastolic Volume MOD 2C 101.9 cm??? LV Systolic Volume MOD 2C 81.4 cm??? LV Ejection Fraction MOD 2C 20.1 % LV Cardiac Index MOD 2C 693.6 cm???/min???m??? LV Diastolic Length 2C 9.0 cm LV Systolic Length 2C 8.3 cm M-MODE Aortic Root Diameter MM 2.9 cm LA Systolic Diameter MM 5.3 cm LA Ao Ratio MM 1.8 AV Cusp Separation MM 1.4 cm DOPPLER AV Peak Velocity 118.3 cm/s AV Peak Gradient 5.6 mmHg AV Mean Velocity 89.7 cm/s AV Mean Gradient 3.5 mmHg AV Velocity Time Integral 20.2 cm LVOT Peak Velocity 75.8 cm/s LVOT Peak Gradient 2.3 mmHg LVOT Velocity Time Integral 12.3 cm LVOT Stroke Volume 37.0 cm??? LVOT Stroke Volume Index 16.5 ml/m??? LVOT Cardiac Index 1252.9 cm???/min???m??? AV Area Cont Eq vti 1.8 cm??? AV Area Cont Eq pk 1.9 cm??? Mitral E Point Velocity 68.8 cm/s Mitral A Point Velocity 25.7 cm/s Mitral E to A Ratio 2.7 MV Deceleration Time 191.4 ms LV E' Lateral Velocity 4.2 cm/s Mitral E to LV E' Lateral Ratio 16.3 LV E' Septal Velocity 4.3 cm/s Mitral E to LV E' Septal Ratio 15.9 TR Peak Velocity 239.6 cm/s TR Peak Gradient 23.0 mmHg Right Atrial Pressure 8.0 mmHg Pulmonary Artery Systolic Pressu 31.0 mmHg Right Ventricular Systolic Press 31.0 mmHg FINDINGS Left Ventricle Severely increased left ventricular wall thickness. Left ventricular ejection fraction is estimated at 20%. Hypokinetic inferior wall. Hypokinetic septum. [place] hypokinetic. Severely increased left ventricular systolic volume. Severely decreased left ventricular ejection fraction. Right Ventricle Severely increased basal right ventricular diameter. Mild pulmonary hypertension. Right Atrium Severe right atrial dilatation. Left Atrium Severe left atrial dilatation. Mitral Valve Structurally normal mitral valve. Mild thickening/calcification of the posterior mitral valve leaflet. Mildly decreased mobility of the posterior mitral valve leaflet. Trace mitral regurgitation. Aortic Valve Diffuse thickening of the aortic valve cusps with reduced excursion. Trileaflet aortic valve. No aortic regurgitation. Tricuspid Valve Structurally normal tricuspid valve. Mild tricuspid regurgitation. Pulmonic Valve Structurally normal pulmonic valve. No pulmonic regurgitation. Pericardium No pericardial effusion. Aorta Normal size aortic root. CONCLUSIONS Severe LV systolic dysfunction Hypokinesis of the apex Mild tricuspid regurgitation Left atrial dilation dictation May be due to apical ballooning syndrome Previewed by: Dr. Servando Wilson MD (Electronically Signed) Final Date: 04 September 2022 13:09
[2022-09-04] MEDS: ATORVASTATIN 40 MG TAB PO SCH (17:13)
[2022-09-04] MEDS ORDERED: WARFARIN 5 MG TAB PO ONE (18:00)
[2022-09-05] MEDS: TAMSULOSIN 0.4 MG CAP.ER.24H PO SCH ×2 (06:07→21:33)
[2022-09-05] MEDS: LEVOTHYROXINE 100 MCG TAB PO SCH (06:07)
[2022-09-05] MEDS: CHOLECALCIFEROL 25 MCG (1000 IU) TABLET PO SCH (08:00)
[2022-09-05] MEDS: MAGNESIUM OXIDE 400 MG TAB PO SCH (08:00)
[2022-09-05] MEDS: MULTIVITAMINS, THERA 1 EACH TAB PO SCH (08:00)
[2022-09-05] MEDS: FUROSEMIDE 10 MG/ML 10 ML VIAL IV SCH ×2 (08:00→21:32)
[2022-09-05] MEDS: POTASSIUM CHLORIDE ER 20 MEQ TAB.ER PO SCH ×2 (08:00→16:54)
[2022-09-05] MEDS: FINASTERIDE 5 MG TAB PO SCH (08:00)
[2022-09-05] MEDS: DULoxetine HCL 60 MG CAPSULE.DR PO SCH ×2 (08:01→16:54)
[2022-09-05] MEDS: lisinopriL 20 MG TAB PO SCH (08:01)
[2022-09-05] MEDS: DONEPEZIL 10 MG TAB PO SCH (08:01)
[2022-09-05] MEDS: FOLIC ACID-VIT B COMPLEX-VIT C 1 CAP PO SCH (08:01)
[2022-09-05 08:48] LABS: INR 2.2 (<1.2)
[2022-09-05 08:49] LABS: Prothrombin Time 21.3 sec (9.0-12.0)
[2022-09-05] MEDS: SYMBICORT 160-4.5 MCG INHALER INHALATION SCH ×2 (08:52→20:26)
[2022-09-05 09:01] LABS: African American GFR (CKD) 88 (>60 ml/min/1.73 sqM); Anion Gap 6 mmol/L; Blood Urea Nitrogen 21 mg/dL (9-20); Calcium 8.2 mg/dL (8.4-10.2); Carbon Dioxide 34 mmol/L (22-30); Chloride 94 mmol/L (98-107); Glucose 98 mg/dL (74-99); Magnesium 2.2 mg/dL (1.6-2.3); Non-African American GFR(CKD) 76 (>60 ml/min/1.73 sqM); Potassium 4.2 mmol/L (3.5-5.1); Sodium 134 mmol/L (137-145)
--- NOTE | 2022-09-05 14:18 | P.PN ---
Subjective Progress Note Date: 09/05/22 History of present illness: This is an 82-year-old male patient of Dr. Ochoa'jayden with past medical history of COPD, hypertension, benign prostatic hypertrophy, chronic back pain, persistent atrial fibrillation on Coumadin, tobacco use, systolic heart failure, cardiomyopathy, coronary artery disease status post PCI, depression. Patient presented to the hospital due to difficulty in breathing that have been going on for the past 2 nights and worsening. He states he's had lower extremity edema. No weight gain. He complains of a cough with phlegm that occurs one time in the morning only. He denies any wheezing. No fever or chills. Patient is status post 1 dose of IV Lasix 40 mg and states he has been urinating well since. EKG atrial fibrillation with left bundle branch block Chest x-ray: Cardiomegaly, pulmonary vascular congestion and bilateral pleural effusion WBC 6, hemoglobin 12.3, platelet count 248. INR 2.8. Sodium 134, potassium 4.5 Home cardiac medications: Lipitor 40 mg daily, Lasix 80 mg twice daily, levothyroxine 200 mg daily, magnesium 250 mg daily, Toprol-XL 50 mild grams at bedtime, K-Dur 20 milliequivalents twice daily, Coumadin 7.5 alternating with 5 mg. Echocardiogram 07/2021 revealed normal LV systolic function 50-55%, hypokinetic basal inferior wall, left atrial enlargement, mild tricuspid regurgitation. ZAK 01/2021 revealed mild mitral regurgitation, no evidence of PFO possible small thrombus in the left atrial appendage, global hypokinesis with EF of 35-40 %. Unable to proceed with cardioversion Lexiscan stress test 08/01/2022 revealed nonspecific EKG portion secondary to baseline EKG abnormalities. Fixed inferior perfusion defect consistent with diaphragmatic attenuation artifact. No other myocardial perfusion defects to suggest ischemia. EF 35%. 09/05 Patient is seen today on the cardiac stepdown unit. He has been on IV Lasix 60 mg every 12 hours and diuresing. He has a negative fluid balance of 650. Weight is down 2 kg. Repeat blood work reveals INR of 2.2. Sodium 134, potassium 4.2, BUN 21 creatinine 0.93. Echocardiogram reveals severe LV systolic dysfunction with EF of 20%, mild tricuspid regurgitation, left atrial dilation may be due to apical ballooning syndrome. Physical examination: Gen: This is an 82-year-old male. He is resting on recliner. He appears to be in no acute distress. VS: reviewed blood pressure 97/63, heart rate in the 70s HEENT: Head is atraumatic, normocephalic. Pupils equal, round. Sclerae is anicteric. NECK: Supple. No JVD. . LUNGS: Diminished with crackles bilaterally bases. No intercostal retractions. HEART: Regular rate and rhythm. No murmur. EXTREMITIES: 2+ pedal edema. No calf tenderness. NEUROLOGICAL: Patient is awake, alert and oriented x3. Assessment: Acute on chronic systolic heart failure Persistent atrial fibrillation Hypertension Hyperlipidemia COPD History of tobacco use and dependence Cardiomyopathy with EF of 35-40% felt to be out of proportion to CAD Coronary artery disease status post PCI of the LAD Depression Plan: Continue patient's home cardiac medications Continue Lasix IV 60 mg twice daily Monitor I&O, daily weights and I's and renal function DC hose bilaterally Further recommendations to follow based upon clinical course. Nurse practitioner note has been reviewed, I agree with documented findings and plan of care. Patient was seen and examined. Objective - Vital Signs Vital signs: Vital Signs Temp 97.8 F 09/05/22 11:46 Pulse 76 09/05/22 11:46 Resp 18 09/05/22 11:46 BP 97/63 09/05/22 11:46 Pulse Ox 98 09/05/22 11:46 FiO2 Intake & Output 09/04/22 09/05/22 09/05/22 18:59 06:59 18:59 Intake Total 125 900 620 Output Total 300 1375 200 Balance -175 -475 420 Weight 97.976 kg 95.8 kg Intake: Oral 125 900 620 Output: Urine 300 1375 200 Post Void Residual 0 Other: Voiding Method Toilet Toilet Urinal Urinal # Bowel Movements 1 - Labs CBC & Chem 7: 09/03/22 18:48 09/05/22 08:07 Labs: Abnormal Lab Results - Last 24 Hours (Table) 09/05/22 09/05/22 Range/Units 08:07 08:07 PT 21.3 H (9.0-12.0) sec INR 2.2 H (<1.2) Sodium 134 L (137-145) mmol/L Chloride 94 L (98-107) mmol/L Carbon Dioxide 34 H (22-30) mmol/L BUN 21 H (9-20) mg/dL Calcium 8.2 L (8.4-10.2) mg/dL
[2022-09-05] MEDS: ATORVASTATIN 40 MG TAB PO SCH (16:54)
[2022-09-05] MEDS ORDERED: WARFARIN 5 MG TAB PO ONE (18:00)
[2022-09-05] MEDS: METHADONE 5 MG TAB PO SCH ×2 (18:04→21:33)
--- NOTE | 2022-09-05 20:31 | P.PN ---
Progress Note - Text Progress Note Date: 09/05/22 Chief Complaint: Short of breath This is a pleasant 82-year-old patient, follows with Dr. Ty Farrar. Chronic stable medical conditions include atrial fibrillation, COPD, hard of hearing, hypertension, hyperlipidemia, osteoporosis, hypothyroid. Does use 2 L of oxygen at night. Has chronic back pain. Because of narcotics as to bowel movements are weak. Does use a cane. Lives with his . CAD with stent. Patient presents with progressive shortness of breath coming on for a few days over 3 weeks. Increasing lower extremity edema. The sleep with one pillow at night. Appetite is good. No fever no chills. More short of breath. Found to be in CHF in the ER. No cough. Started on IV Lasix September 05: Some improvement in breathing. IV Lasix to continue. Negative fluid balance. I's and O's. Oral intake fair Active Medications Acetaminophen (Acetaminophen Tab 325 Mg Tab) 650 mg PO Q6HR PRN PRN Reason: Mild Pain or Fever > 100.5 Last Admin: 09/05/22 06:07 Dose: 650 mg Albuterol Sulfate (Albuterol Nebulized 2.5 Mg/3 Ml) 2.5 mg INHALATION RT-TID PRN PRN Reason: Shortness Of Breath Atorvastatin Calcium (Atorvastatin 40 Mg Tab) 40 mg PO HS@1700 [facility] Last Admin: 09/05/22 16:54 Dose: 40 mg Budesonide/Formoterol Fumarate (Symbicort 160-4.5 Mcg Inhaler) 1 puff INHALATION RT-BID [facility] Last Admin: 09/05/22 20:26 Dose: 1 puff Calcium Carbonate/Glycine (Calcium Carbonate 500 Mg Chewable) 1,000 mg PO Q4HR PRN PRN Reason: Dyspepsia Cholecalciferol (Cholecalciferol 25 Mcg (1000 Iu) Tablet) 25 mcg PO DAILY [facility] Last Admin: 09/05/22 08:00 Dose: 25 mcg Donepezil HCl (Donepezil 10 Mg Tab) 10 mg PO DAILY@0900 [facility] Last Admin: 09/05/22 08:01 Dose: 10 mg Duloxetine HCl (Duloxetine Hcl 60 Mg Capsule.) 60 mg PO BID@0900,1700 [facility] Last Admin: 09/05/22 16:54 Dose: 60 mg Finasteride (Finasteride 5 Mg Tab) 5 mg PO DAILY@0900 [facility] Last Admin: 09/05/22 08:00 Dose: 5 mg Furosemide (Furosemide 10 Mg/Ml 10 Ml Vial) 60 mg IV Q12HR [facility] Last Admin: 09/05/22 08:00 Dose: 60 mg Lactulose (Lactulose 20 Gm/30 Ml Cup) 20 gm PO DAILY PRN PRN Reason: Constipation Levothyroxine Sodium (Levothyroxine 100 Mcg Tab) 200 mcg PO DAILY@0700 [facility] Last Admin: 09/05/22 06:07 Dose: 200 mcg Lisinopril (Lisinopril 20 Mg Tab) 20 mg PO DAILY@0900 [facility] Last Admin: 09/05/22 08:01 Dose: 20 mg Lorazepam (Lorazepam 0.5 Mg Tab) 0.5 mg PO Q6HR PRN PRN Reason: Anxiety Magnesium Oxide (Magnesium Oxide 400 Mg Tab) 400 mg PO DAILY [facility] Last Admin: 09/05/22 08:00 Dose: 400 mg Melatonin (Melatonin 3 Mg Tablet) 3 mg PO HS PRN PRN Reason: Insomnia Methadone HCl (Methadone 5 Mg Tab) 7.5 mg PO TID [facility] Last Admin: 09/05/22 18:04 Dose: 7.5 mg Metoprolol Succinate (Metoprolol Succinate (Er) 50 Mg Tab.Er.24h) 50 mg PO HS@2300 [facility] Last Admin: 09/04/22 23:45 Dose: 50 mg Miscellaneous Information (Warfarin Per Pharmacy) 1 each MISCELLANE DIRECTED PRN; Protocol PRN Reason: Per Protocol Multivit/Ca Carb/B Cmplx/FA/Prenat (Folic Acid-Vit B Complex-Vit C 1 Cap) 1 each PO DAILY [facility] Last Admin: 09/05/22 08:01 Dose: 1 each Multivitamins (Multivitamins, Thera 1 Each Tab) 1 each PO DAILY [facility] Last Admin: 09/05/22 08:00 Dose: 1 each Naloxone HCl (Naloxone 0.4 Mg/Ml 1 Ml Vial) 0.2 mg IV Q2M PRN PRN Reason: Opioid Reversal Ondansetron HCl (Ondansetron 4 Mg/2 Ml Vial) 4 mg IVP Q8HR PRN PRN Reason: Nausea And Vomiting Potassium Chloride (Potassium Chloride Er 20 Meq Tab.Er) 20 meq PO BID @0900,1600 [facility] Last Admin: 09/05/22 16:54 Dose: 20 meq Tamsulosin HCl (Tamsulosin 0.4 Mg Cap.Er.24h) 0.4 mg PO BID@0700,2100 [facility] Last Admin: 09/05/22 06:07 Dose: 0.4 mg Past medical history to include: atrial fibrillation, COPD, hard of hearing, hypertension, hyperlipidemia, osteoporosis, hypothyroid. 2 L of oxygen at night. CAD with stent. Depression and anxiety. BPH Social history: Patient smoked for about 40 years. About 50 cigars per week. Stop smoking in 2010. No alcohol. Lives with his . Physical examination: VITAL SIGNS: 97.8, 76, 18, 87/63, 98% room air GENERAL: BMI 27.7, reclining in bed awake tired. EYES: Pupils equal. Conjunctiva normal. HEENT: External appearance of nose and ears normal, oral cavity grossly normal. Decreased hearing NECK: JVD raised; masses not palpable. HEART: First and second heart sounds are normal; significant edema. LUNGS: Respiratory rate increased; decreased breath sounds. ABDOMEN: Soft, nontender, liver spleen not palpable, no masses palpable. PSYCH: Alert and oriented x3; mood and affect normal. MUSCULOSKELETAL:No Clubbing/cyanosis;muscles-grossly intact. OA INVESTIGATIONS, reviewed in the clinical context: 2-D echocardiogram: EF 20%. Hypokinetic [place]. September 05: INR 2.2 sodium 134 BUN 21 creatinine 0.93 White count 60 globin 12.3 platelets 248 INR 2.8 sodium 134 potassium 4.5 BUN 22 creatinine 0.93 Troponin I 0.048, 0.048 ProBNP 7450 EKG tracing personally reviewed by me-atrial fibrillation. Heart rate 80. Left bundle-branch block. Chest x-ray film personally reviewed by me-cardiomegaly. Pulmonary edema Assessment and plan: -Acute on chronic congestive heart failure exacerbation from systolic dysfunction EF 20% %.: Slow to respond IV Lasix 60 mg every 12. Fluid restriction 1500 mL a day. Strict I's and O's. Add Aldactone -Persistent atrial fibrillation: Rate controlled Toprol-XL 0 mg daily at bedtime. 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 Ventolin when necessary -Depression and anxiety Cymbalta 60 mg twice a day -Hyperlipidemia Lipitor 40 mg daily at bedtime -Essential hypertension Toprol-XL 25 mg daily at bedtime. Univasc 15 mg daily -Primary osteoarthritis Pain medications as needed -BPH, causing urine outflow obstruction Flomax -Chronic hypoxic respiratory failure, nocturnal 2 L of oxygen at home, secondary to COPD -Hypothyroid Synthroid 200 g daily -Chronic gait dysfunction uses a cane and a baseline -Full code Continue with IV Lasix. Add Aldactone 12.5 mg. Discussed. Follow with oncology.
[2022-09-05] MEDS: METOPROLOL SUCCINATE (ER) 50 MG TAB.ER.24H PO SCH (21:33)
--- NOTE | 2022-09-06 05:50 | P.PN ---
Subjective Progress Note Date: 09/06/22 Principal diagnosis: Heart failure The patient is an 82-year-old gentleman with coronary artery disease as well as cardiomyopathy who was admitted to the hospital with heart failure exacerbation secondary to heart failure with reduced ejection fraction. Also he is known to have coronary artery disease with a prior revascularization. He was seen this morning. He is feeling better. The lower extremities edema has improved significantly and currently is not hypoxic and not requiring any oxygen. He continues to be in atrial fibrillation with controlled heart rate on the current medical regimen. I am going to DC the Lasix IV and start the patient on Lasix by mouth at the home dose which is 80 mg twice a day. Meanwhile the patient can be discharged home in the next 24-48 hours. The examination is remarkable for irregular rhythm with controlled heart rate and diminished breathing sounds bilaterally and mild bilateral lower extremity edema Assessment Heart failure exacerbation secondary to heart failure with reduced ejection fraction Coronary artery disease Ischemic cardiomyopathy Multiple comorbid conditions Atrial fibrillation with controlled heart rate Plan Continue the current medical regimen DC Lasix IV and start the patient on Lasix by mouth Follow-up with the patient Objective - Vital Signs Vital signs: Vital Signs Temp 97.8 F 09/06/22 03:56 Pulse 88 09/06/22 03:56 Resp 18 09/06/22 03:56 BP 109/68 09/06/22 03:56 Pulse Ox 99 09/06/22 03:56 FiO2 Intake & Output 09/05/22 09/05/22 09/06/22 06:59 18:59 06:59 Intake Total 900 860 Output Total 1375 1050 1525 Balance -650 -373 -3137 Weight 95.8 kg 93.8 kg Intake: Oral 900 860 Output: Urine 1375 1050 1525 Post Void Residual 0 Other: Voiding Method Toilet Toilet Urinal Urinal - Labs CBC & Chem 7: 09/03/22 18:48 09/05/22 08:07 Labs: Abnormal Lab Results - Last 24 Hours (Table) 09/05/22 09/05/22 Range/Units 08:07 08:07 PT 21.3 H (9.0-12.0) sec INR 2.2 H (<1.2) Sodium 134 L (137-145) mmol/L Chloride 94 L (98-107) mmol/L Carbon Dioxide 34 H (22-30) mmol/L BUN 21 H (9-20) mg/dL Calcium 8.2 L (8.4-10.2) mg/dL
[2022-09-06] MEDS: LEVOTHYROXINE 100 MCG TAB PO SCH (06:12)
[2022-09-06] MEDS: TAMSULOSIN 0.4 MG CAP.ER.24H PO SCH ×2 (06:12→21:00)
[2022-09-06] MEDS: SYMBICORT 160-4.5 MCG INHALER INHALATION SCH ×2 (08:32→21:01)
[2022-09-06] MEDS: MULTIVITAMINS, THERA 1 EACH TAB PO SCH (09:18)
[2022-09-06] MEDS: POTASSIUM CHLORIDE ER 20 MEQ TAB.ER PO SCH ×2 (09:18→15:32)
[2022-09-06] MEDS: DULoxetine HCL 60 MG CAPSULE.DR PO SCH ×2 (09:18→15:32)
[2022-09-06] MEDS: CHOLECALCIFEROL 25 MCG (1000 IU) TABLET PO SCH (09:18)
[2022-09-06] MEDS: FINASTERIDE 5 MG TAB PO SCH (09:18)
[2022-09-06] MEDS: SPIRONOLACTONE 25 MG TAB PO SCH (09:18)
[2022-09-06] MEDS: MAGNESIUM OXIDE 400 MG TAB PO SCH (09:18)
[2022-09-06] MEDS: FUROSEMIDE 80 MG TAB PO SCH ×2 (09:18→15:32)
[2022-09-06] MEDS: DONEPEZIL 10 MG TAB PO SCH (09:18)
[2022-09-06] MEDS: METHADONE 5 MG TAB PO SCH ×3 (09:18→22:24)
[2022-09-06] MEDS: FOLIC ACID-VIT B COMPLEX-VIT C 1 CAP PO SCH (09:19)
[2022-09-06 09:46] LABS: INR 2.2 (<1.2); Prothrombin Time 21.3 sec (9.0-12.0)
[2022-09-06 09:57] LABS: African American GFR (CKD) >90 (>60 ml/min/1.73 sqM); Anion Gap 5 mmol/L; Blood Urea Nitrogen 21 mg/dL (9-20); Calcium 8.1 mg/dL (8.4-10.2); Carbon Dioxide 33 mmol/L (22-30); Chloride 96 mmol/L (98-107); Glucose 105 mg/dL (74-99); Non-African American GFR(CKD) 80 (>60 ml/min/1.73 sqM); Sodium 134 mmol/L (137-145)
[2022-09-06] MEDS: lisinopriL 20 MG TAB PO SCH (11:46)
[2022-09-06] MEDS: ATORVASTATIN 40 MG TAB PO SCH (15:32)
[2022-09-06] MEDS ORDERED: WARFARIN 5 MG TAB PO ONE (18:00)
--- NOTE | 2022-09-06 20:11 | P.PN ---
Progress Note - Text Progress Note Date: 09/06/22 Chief Complaint: Short of breath This is a pleasant 82-year-old patient, follows with Dr. Ty Farrar. Chronic stable medical conditions include atrial fibrillation, COPD, hard of hearing, hypertension, hyperlipidemia, osteoporosis, hypothyroid. Does use 2 L of oxygen at night. Has chronic back pain. Because of narcotics as to bowel movements are weak. Does use a cane. Lives with his . CAD with stent. Patient presents with progressive shortness of breath coming on for a few days over 3 weeks. Increasing lower extremity edema. The sleep with one pillow at night. Appetite is good. No fever no chills. More short of breath. Found to be in CHF in the ER. No cough. Started on IV Lasix September 05: Some improvement in breathing. IV Lasix to continue. Negative fluid balance. I's and O's. Oral intake fair September 06: Getting IV Lasix. Better. Eating well. Discussed with the patient and [id number]. Decrease edema. Active Medications Acetaminophen (Acetaminophen Tab 325 Mg Tab) 650 mg PO Q6HR PRN PRN Reason: Mild Pain or Fever > 100.5 Last Admin: 09/05/22 06:07 Dose: 650 mg Albuterol Sulfate (Albuterol Nebulized 2.5 Mg/3 Ml) 2.5 mg INHALATION RT-TID PRN PRN Reason: Shortness Of Breath Atorvastatin Calcium (Atorvastatin 40 Mg Tab) 40 mg PO HS@1700 [facility] Last Admin: 09/06/22 15:32 Dose: 40 mg Budesonide/Formoterol Fumarate (Symbicort 160-4.5 Mcg Inhaler) 1 puff INHALATION RT-BID [facility] Last Admin: 09/06/22 08:32 Dose: 1 puff Calcium Carbonate/Glycine (Calcium Carbonate 500 Mg Chewable) 1,000 mg PO Q4HR PRN PRN Reason: Dyspepsia Cholecalciferol (Cholecalciferol 25 Mcg (1000 Iu) Tablet) 25 mcg PO DAILY [facility] Last Admin: 09/06/22 09:18 Dose: 25 mcg Donepezil HCl (Donepezil 10 Mg Tab) 10 mg PO DAILY@0900 [facility] Last Admin: 09/06/22 09:18 Dose: 10 mg Duloxetine HCl (Duloxetine Hcl 60 Mg Capsule.) 60 mg PO BID@0900,1700 [facility] Last Admin: 09/06/22 15:32 Dose: 60 mg Finasteride (Finasteride 5 Mg Tab) 5 mg PO DAILY@0900 [facility] Last Admin: 09/06/22 09:18 Dose: 5 mg Furosemide (Furosemide 80 Mg Tab) 80 mg PO BID@0900,1600 [facility] Last Admin: 09/06/22 15:32 Dose: 80 mg Lactulose (Lactulose 20 Gm/30 Ml Cup) 20 gm PO DAILY PRN PRN Reason: Constipation Levothyroxine Sodium (Levothyroxine 100 Mcg Tab) 200 mcg PO DAILY@0700 [facility] Last Admin: 09/06/22 06:12 Dose: 200 mcg Lisinopril (Lisinopril 20 Mg Tab) 20 mg PO DAILY@0900 [facility] Last Admin: 09/06/22 11:46 Dose: 20 mg Lorazepam (Lorazepam 0.5 Mg Tab) 0.5 mg PO Q6HR PRN PRN Reason: Anxiety Magnesium Oxide (Magnesium Oxide 400 Mg Tab) 400 mg PO DAILY [facility] Last Admin: 09/06/22 09:18 Dose: 400 mg Melatonin (Melatonin 3 Mg Tablet) 3 mg PO HS PRN PRN Reason: Insomnia Methadone HCl (Methadone 5 Mg Tab) 7.5 mg PO TID [facility] Last Admin: 09/06/22 15:32 Dose: 7.5 mg Metoprolol Succinate (Metoprolol Succinate (Er) 50 Mg Tab.Er.24h) 50 mg PO HS@2300 [facility] Last Admin: 09/05/22 21:33 Dose: 50 mg Miscellaneous Information (Warfarin Per Pharmacy) 1 each MISCELLANE DIRECTED PRN; Protocol PRN Reason: Per Protocol Multivit/Ca Carb/B Cmplx/FA/Prenat (Folic Acid-Vit B Complex-Vit C 1 Cap) 1 each PO DAILY [facility] Last Admin: 09/06/22 09:19 Dose: 1 each Multivitamins (Multivitamins, Thera 1 Each Tab) 1 each PO DAILY [facility] Last Admin: 09/06/22 09:18 Dose: 1 each Naloxone HCl (Naloxone 0.4 Mg/Ml 1 Ml Vial) 0.2 mg IV Q2M PRN PRN Reason: Opioid Reversal Ondansetron HCl (Ondansetron 4 Mg/2 Ml Vial) 4 mg IVP Q8HR PRN PRN Reason: Nausea And Vomiting Potassium Chloride (Potassium Chloride Er 20 Meq Tab.Er) 20 meq PO BID@0900,1600 [facility] Last Admin: 09/06/22 15:32 Dose: 20 meq Spironolactone (Spironolactone 25 Mg Tab) 12.5 mg PO DAILY [facility] Last Admin: 09/06/22 09:18 Dose: 12.5 mg Tamsulosin HCl (Tamsulosin 0.4 Mg Cap.Er.24h) 0.4 mg PO BID@0700,2100 [facility] Last Admin: 09/06/22 06:12 Dose: 0.4 mg Past medical history to include: atrial fibrillation, COPD, hard of hearing, hypertension, hyperlipidemia, osteoporosis, hypothyroid. 2 L of oxygen at night. CAD with stent. Depression and anxiety. BPH Social history: Patient smoked for about 40 years. About 50 cigars per week. Stop smoking in 2010. No alcohol. Lives with his . Physical examination: VITAL SIGNS: 97.4, 74, 18, 1 22 x 65, 97% room air GENERAL: BMI 27.7, sitting at the edge of the bed, breathing better EYES: Pupils equal. Conjunctiva normal. HEENT: External appearance of nose and ears normal, oral cavity grossly normal. Decreased hearing NECK: JVD raised; masses not palpable. HEART: First and second heart sounds are normal; decreased edema. LUNGS: Respiratory rate normal; decreased breath sounds. ABDOMEN: Soft, nontender, liver spleen not palpable, no masses palpable. PSYCH: Alert and oriented x3; mood and affect normal. MUSCULOSKELETAL:No Clubbing/cyanosis;muscles-grossly intact. OA INVESTIGATIONS, reviewed in the clinical context: September 06: INR 2.2 potassium 4 BUN 21 crit 0.87 2-D echocardiogram: EF 20%. Hypokinetic krueger. September 05: INR 2.2 sodium 134 BUN 21 creatinine 0.93 White count 60 globin 12.3 platelets 248 INR 2.8 sodium 134 potassium 4.5 BUN 22 creatinine 0.93 Troponin I 0.048, 0.048 ProBNP 7450 EKG tracing personally reviewed by me-atrial fibrillation. Heart rate 80. Left bundle-branch block. Chest x-ray film personally reviewed by me-cardiomegaly. Pulmonary edema Assessment and plan: -Acute on chronic congestive heart failure exacerbation from systolic dysfu nction EF 20% %.: Improving IV Lasix changed to by mouth Lasix today. Fluid restriction 1500 mL a day. Strict I's and O's. Aldactone -Persistent atrial fibrillation: Rate controlled Toprol-XL 0 mg daily at bedtime. 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 Ventolin when necessary -Depression and anxiety Cymbalta 60 mg twice a day -Hyperlipidemia Lipitor 40 mg daily at bedtime -Essential hypertension Toprol-XL 25 mg daily at bedtime. Univasc 15 mg daily -Primary osteoarthritis Pain medications as needed -BPH, causing urine outflow obstruction Flomax -Chronic hypoxic respiratory failure, nocturnal 2 L of oxygen at home, secondary to COPD -Hypothyroid Synthroid 200 g daily -Chronic gait dysfunction uses a cane and a baseline -Full code This is being changed to by mouth Lasix. Discussed with the patient and family the bedside. Several questions answered. Hopefully discharge tomorrow.
[2022-09-06] MEDS: METOPROLOL SUCCINATE (ER) 50 MG TAB.ER.24H PO SCH (22:24)
[2022-09-07] MEDS: TAMSULOSIN 0.4 MG CAP.ER.24H PO SCH (06:09)
[2022-09-07] MEDS: LEVOTHYROXINE 100 MCG TAB PO SCH (06:09)
[2022-09-07 06:11] VITALS: RESP 18
--- NOTE | 2022-09-07 06:26 | P.PN ---
Subjective Progress Note Date: 09/07/22 Principal diagnosis: Heart failure The patient is an 82-year-old gentleman with coronary artery disease as well as cardiomyopathy who was admitted to the hospital with heart failure exacerbation secondary to heart failure with reduced ejection fraction. Also he is known to have coronary artery disease with a prior revascularization. He was seen this morning. He is feeling better. The lower extremities edema has improved significantly and currently is not hypoxic and not requiring any oxygen. He continues to be in atrial fibrillation with controlled heart rate on the current medical regimen. I am going to DC the Lasix IV and start the patient on Lasix by mouth at the home dose which is 80 mg twice a day. Meanwhile the patient can be discharged home in the next 24-48 hours. 09/07/2022 The patient was seen this morning. He is doing better and the shortness of b reath has improved as well as the lower extremity edema. Currently he is on Lasix IV. He is asking to be discharged home. From a cardiovascular standpoint of view, the patient potentially can be discharged home in the next 12-24 hours. Meanwhile continue the current medical regimen including the current dose of Lasix by mouth which is 80 mg twice a day. The examination is remarkable for irregular rhythm with controlled heart rate and diminished breathing sounds bilaterally and mild bilateral lower extremity edema Assessment Heart failure exacerbation secondary to heart failure with reduced ejection fraction Coronary artery disease Ischemic cardiomyopathy Multiple comorbid conditions Atrial fibrillation with controlled heart rate Plan Continue the current medical regimen Continue the current dose of oral Lasix The patient can be discharged home Objective - Vital Signs Vital signs: Vital Signs Temp 97.6 F 09/07/22 04:00 Pulse 88 09/07/22 04:00 Resp 18 09/07/22 04:00 BP 104/68 09/07/22 04:00 Pulse Ox 98 09/07/22 06:08 FiO2 Intake & Output 09/06/22 09/06/22 09/07/22 06:59 18:59 06:59 Intake Total 60 360 250 Output Total 1725 800 850 Balance -1665 -440 -600 Weight 93.8 kg 93.9 kg Intake: IV 10 Invasive Line 1 10 Oral 60 360 240 Output: Urine 1725 800 850 Other: Voiding Method Toilet Toilet Urinal Urinal # Bowel Movements 1 1 - Labs CBC & Chem 7: 09/03/22 18:48 09/06/22 09:02 Labs: Abnormal Lab Results - Last 24 Hours (Table) 09/06/22 09/06/22 Range/Units 09:02 09:02 PT 21.3 H (9.0-12.0) sec INR 2.2 H (<1.2) Sodium 134 L (137-145) mmol/L Chloride 96 L (98-107) mmol/L Carbon Dioxide 33 H (22-30) mmol/L BUN 21 H (9-20) mg/dL Glucose 105 H (74-99) mg/dL Calcium 8.1 L (8.4-10.2) mg/dL
[2022-09-07 06:54] LABS: Prothrombin Time 19.7 sec (9.0-12.0)
[2022-09-07 07:07] LABS: African American GFR (CKD) 72 (>60 ml/min/1.73 sqM); Anion Gap 6 mmol/L; Blood Urea Nitrogen 23 mg/dL (9-20); Calcium 8.4 mg/dL (8.4-10.2); Carbon Dioxide 35 mmol/L (22-30); Chloride 96 mmol/L (98-107); Glucose 91 mg/dL (74-99); Non-African American GFR(CKD) 62 (>60 ml/min/1.73 sqM); Potassium 4.3 mmol/L (3.5-5.1); Sodium 137 mmol/L (137-145)
[2022-09-07] MEDS: SYMBICORT 160-4.5 MCG INHALER INHALATION SCH (08:18)
[2022-09-07 09:11] VITALS: TEMP 97.9
[2022-09-07] MEDS: CHOLECALCIFEROL 25 MCG (1000 IU) TABLET PO SCH (09:12)
[2022-09-07] MEDS: FUROSEMIDE 80 MG TAB PO SCH (09:12)
[2022-09-07] MEDS: DULoxetine HCL 60 MG CAPSULE.DR PO SCH (09:12)
[2022-09-07] MEDS: MULTIVITAMINS, THERA 1 EACH TAB PO SCH (09:12)
[2022-09-07] MEDS: METHADONE 5 MG TAB PO SCH (09:12)
[2022-09-07] MEDS: POTASSIUM CHLORIDE ER 20 MEQ TAB.ER PO SCH (09:13)
[2022-09-07] MEDS: DONEPEZIL 10 MG TAB PO SCH (09:13)
[2022-09-07] MEDS: SPIRONOLACTONE 25 MG TAB PO SCH (09:13)
[2022-09-07] MEDS: MAGNESIUM OXIDE 400 MG TAB PO SCH (09:14)
[2022-09-07] MEDS: FOLIC ACID-VIT B COMPLEX-VIT C 1 CAP PO SCH (09:14)
[2022-09-07] MEDS: FINASTERIDE 5 MG TAB PO SCH (09:14)
[2022-09-07] MEDS: lisinopriL 20 MG TAB PO SCH (09:14)
[2022-09-07 11:23] VITALS: BP 108/65; PULSE 76
--- NOTE | 2022-09-07 16:51 | P.DS ---
Providers Date of admission: 09/04/22 12:37 Expected date of discharge: 09/07/22 Attending physician: Sergio Greer Consults: 09/03/22 21:39 Consult Physician Routine Consulting Provider: [facility] Consult Reason/Comments: CHF exas Do you want consulting provider notified?: Yes, Notify in am Primary care physician: Ty Farrar [facility] Course: Chief Complaint: Short of breath This is a pleasant 82-year-old patient, follows with Dr. Ty Farrar. Chronic stable medical conditions include atrial fibrillation, COPD, hard of hearing, hypertension, hyperlipidemia, osteoporosis, hypothyroid. Does use 2 L of oxygen at night. Has chronic back pain. Because of narcotics as to bowel movements are weak. Does use a cane. Lives with his . CAD with stent. Patient presents with progressive shortness of breath coming on for a few days over 3 weeks. Increasing lower extremity edema. The sleep with one pillow at night. Appetite is good. No fever no chills. More short of breath. Found to be in CHF in the ER. No cough. Started on IV Lasix September 05: Some improvement in breathing. IV Lasix to continue. Negative fluid balance. I's and O's. Oral intake fair September 06: Getting IV Lasix. Better. Eating well. Discussed with the patient and [id number]. Decrease edema. September 07: Breathing much better. On oral Lasix. Discussed with patient. Cleared by cardiology. Follow-up with cardiology Past medical history to include: atrial fibrillation, COPD, hard of hearing, hypertension, hyperlipidemia, osteoporosis, hypothyroid. 2 L of oxygen at night. CAD with stent. Depression and anxiety. BPH Social history: Patient smoked for about 40 years. About 50 cigars per week. Stop smoking in 2010. No alcohol. Lives with his . Physical examination: VITAL SIGNS: 97.9, 86, 18, 108/65, 99% room air GENERAL: BMI 27.7, sitting up, comfortable EYES: Pupils equal. Conjunctiva normal. HEENT: External appearance of nose and ears normal, oral cavity grossly normal. Decreased hearing NECK: JVD raised; masses not palpable. HEART: First and second heart sounds are normal; decreased edema. LUNGS: Respiratory rate normal; decreased breath sounds. ABDOMEN: Soft, nontender, liver spleen not palpable, no masses palpable. PSYCH: Alert and oriented x3; mood and affect normal. MUSCULOSKELETAL:No Clubbing/cyanosis;muscles-grossly intact. OA INVESTIGATIONS, reviewed in the clinical context: September 07: INR 2 potassium 4.3 creatinine 1.10 September 06: INR 2.2 potassium 4 BUN 21 crit 0.87 2-D echocardiogram: EF 20%. Hypokinetic krueger. September 05: INR 2.2 sodium 134 BUN 21 creatinine 0.93 White count 60 globin 12.3 platelets 248 INR 2.8 sodium 134 potassium 4.5 BUN 22 creatinine 0.93 Troponin I 0.048, 0.048 ProBNP 7450 EKG tracing personally reviewed by me-atrial fibrillation. Heart rate 80. Left bundle-branch block. Chest x-ray film personally reviewed by me-cardiomegaly. Pulmonary edema Assessment and plan: -Acute on chronic congestive heart failure exacerbation from systolic dysfunction EF 20% %.: Improved Lasix 80 mg twice a day. Fluid restriction. Strict I's and O's. Aldactone -Persistent atrial fibrillation: Rate controlled Toprol-XL 0 mg daily at bedtime. 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 Ventolin when necessary -Depression and anxiety Cymbalta 60 mg twice a day -Hyperlipidemia Lipitor 40 mg daily at bedtime -Essential hypertension Toprol-XL 50 mg daily at bedtime. Univasc 15 mg daily -Primary osteoarthritis Pain medications as needed -BPH, causing urine outflow obstruction Flomax -Chronic hypoxic respiratory failure, nocturnal 2 L of oxygen at home, secondary to COPD -Hypothyroid Synthroid 200 g daily -Chronic gait dysfunction uses a cane and a baseline -Full code Disposition: Home Plan - Discharge Summary Discharge Rx Participant: Yes New Discharge Prescriptions: New Spironolactone [Aldactone] 12.5 mg PO DAILY #30 tab Continue Budesonide/Formoterol Fumarate [Symbicort 160-4.5 Mcg Inhaler] 1 puff INHALATION RT-BID DULoxetine HCL [Cymbalta] 60 mg PO BID@0900,1700 Moexipril HCl [Univasc] 15 mg PO DAILY@0900 Dutasteride 0.5 mg PO DAILY@0900 Levothyroxine Sodium 200 mcg PO DAILY@0700 Multivit-Min/Folic/Vit K/Lycop [Men's Multivitamin Tablet] 1 tab PO DAILY Warfarin [Coumadin] 5 mg PO SUTUWETHSA@1700 Atorvastatin [Lipitor] 40 mg PO HS@1700 Super B Complex With Folic Acid And Vitamin C 1 tab PO DAILY Donepezil [Aricept] 10 mg PO DAILY@0900 Furosemide [Lasix] 80 mg PO BID@0700,1500 Metoprolol Succinate (ER) [Toprol XL] 50 mg PO HS@2300 busPIRone HCl [Buspar] 10 mg PO DAILY Warfarin [Coumadin] 7.5 mg PO MOFR@1700 Tamsulosin [Flomax] 0.4 mg PO BID@0700,2100 Zinc 50 mg PO DAILY Albuterol Inhaler [Ventolin Hfa Inhaler] 1 - 2 puff INHALATION RT-Q6H PRN PRN Reason: Shortness Of Breath Albuterol Nebulized [Ventolin Nebulized] 2.5 mg INHALATION RT-TID PRN PRN Reason: Shortness Of Breath Cholecalciferol [Vitamin D3 (25 Mcg = 1000 Iu)] 25 mcg PO DAILY Ubidecarenone [Coenzyme Q10] 400 mg PO DAILY@1700 Magnesium 250 mg PO DAILY ARIPiprazole [Abilify] 2 mg PO DAILY@0700 Methadone [Dolophine] 7.5 mg PO TID@0700,1500,2300 Changed Potassium Chloride ER [K-Dur 20] 20 meq PO DAILY #0 Discontinued cefaDROXiL [Duricef] 500 mg PO BID@0900,1700 Discharge Medication List Budesonide/Formoterol Fumarate [Symbicort 160-4.5 Mcg Inhaler] 1 puff INHALATION RT-BID 05/03/15 [History] DULoxetine HCL [Cymbalta] 60 mg PO BID@0900,1700 05/24/16 [History] Moexipril HCl [Univasc] 15 mg PO DAILY@0900 05/24/16 [History] Dutasteride 0.5 mg PO DAILY@0900 09/06/17 [History] Levothyroxine Sodium 200 mcg PO DAILY@0700 12/30/20 [History] Multivit-Min/Folic/Vit K/Lycop [Men's Multivitamin Tablet] 1 tab PO DAILY 12/30/20 [History] Tamsulosin [Flomax] 0.4 mg PO BID@0700,2100 12/30/20 [History] Zinc 50 mg PO DAILY 12/30/20 [History] Warfarin [Coumadin] 5 mg PO SUTUWETHSA@1700 01/16/21 [History] Atorvastatin [Lipitor] 40 mg PO HS@169907/31/21 [History] ARIPiprazole [Abilify] 2 mg PO DAILY@0709/03/22 [History] Albuterol Inhaler [Ventolin Hfa Inhaler] 1 - 2 puff INHALATION RT-Q6H PRN 09/03/22 [History] Albuterol Nebulized [Ventolin Nebulized] 2.5 mg INHALATION RT-TID PRN 09/03/22 [History] Cholecalciferol [Vitamin D3 (25 Mcg = 1000 Iu)] 25 mcg PO DAILY 09/03/22 [ History] Donepezil [Aricept] 10 mg PO DAILY@0900 09/03/22 [History] Furosemide [Lasix] 80 mg PO BID@0700,1500 09/03/22 [History] Magnesium 250 mg PO DAILY 09/03/22 [History] Metoprolol Succinate (ER) [Toprol XL] 50 mg PO HS@23009/03/22 [History] Super B Complex With Folic Acid And Vitamin C 1 tab PO DAILY 09/03/22 [History] Ubidecarenone [Coenzyme Q10] 400 mg PO DAILY@169909/03/22 [History] Warfarin [Coumadin] 7.5 mg PO MOFR@169909/03/22 [History] busPIRone HCl [Buspar] 10 mg PO DAILY 09/03/22 [History] Methadone [Dolophine] 7.5 mg PO TID@0700,1500,2300 09/05/22 [History] Potassium Chloride ER [K-Dur 20] 20 meq PO DAILY #0 09/07/22 [Rx] Spironolactone [Aldactone] 12.5 mg PO DAILY #30 tab 09/07/22 [Rx] Follow up Appointment(s)/Referral(s): Ty Farrar MD [Primary Care Provider] - 1-2 days (office closed please call and make appointment) Dhruv Ochoa DO [STAFF PHYSICIAN] - 1 Week (please call and make appointment ) Manny [facility], [NON-STAFF] - Patient Instructions/Handouts: Heart Failure (DC) Discharge Disposition: HOME WITH HOME HEALTH SERVICES
[2022-09-07] MEDS ORDERED: WARFARIN 7.5 MG TAB PO ONE (18:00)
== END 2022-09-07 12:39 | disposition home health service (06) | DRG 291 ==
LOC: EC 16:40 → 3SCARD 21:39 → OBSVTOIN 09-04 12:37 → 3SCARD 09-04 13:25
PROVIDERS: ADMIT Hospitalist; ATTEND Hospitalist
DX: I11.0 Hypertensive heart disease with heart failure (principal); I50.23 Acute on chronic systolic (congestive) heart failure; I48.19 Other persistent atrial fibrillation; J96.11 Chronic respiratory failure with hypoxia; I25.10 Atherosclerotic heart disease of native coronary artery without angina pectoris; I25.5 Ischemic cardiomyopathy; E03.9 Hypothyroidism, unspecified; Z79.890 Hormone replacement therapy; F32.A Depression, unspecified; F41.9 Anxiety disorder, unspecified; I08.1 Rheumatic disorders of both mitral and tricuspid valves; J44.9 Chronic obstructive pulmonary disease, unspecified; M19.91 Primary osteoarthritis, unspecified site; N40.0 Benign prostatic hyperplasia without lower urinary tract symptoms; E78.5 Hyperlipidemia, unspecified; M81.0 Age-related osteoporosis without current pathological fracture; K59.00 Constipation, unspecified; R26.89 Other abnormalities of gait and mobility; G89.29 Other chronic pain; M54.9 Dorsalgia, unspecified; G47.00 Insomnia, unspecified; H91.90 Unspecified hearing loss, unspecified ear; I44.7 Left bundle-branch block, unspecified; Z99.81 Dependence on supplemental oxygen; Z79.01 Long term (current) use of anticoagulants; Z79.02 Long term (current) use of antithrombotics/antiplatelets; Z79.51 Long term (current) use of inhaled steroids; Z79.899 Other long term (current) drug therapy; Z82.49 Family history of ischemic heart disease and other diseases of the circulatory system; Z95.5 Presence of coronary angioplasty implant and graft; Z96.611 Presence of right artificial shoulder joint; Z87.891 Personal history of nicotine dependence; Z98.42 Cataract extraction status, left eye; Z98.41 Cataract extraction status, right eye; Z96.612 Presence of left artificial shoulder joint; Z96.642 Presence of left artificial hip joint
CPT/HCPCS: 36415; 71046; 80048; 80053; 83735; 83880; 84484; 85025; 85610; 85730; 93005; 93306; 94640; 94760; 96374; 96376; 99285

== ENCOUNTER → 2022-10-12 | Outpatient (CLI) | payer MEDICARE, BC ==
[2022-10-15 08:29] LABS: Protein, Total 6.2 d/dL (6.2-8.2)
[2022-10-15 14:37] LABS: Albumin 4.1 d/dL (3.8-4.9)
[2022-10-17 12:53] LABS: Free Kappa Lt Chain Qnt, Serum <2.95 mg/dL (0.33-1.94); Free Lambda Lt Chain Qnt, Seru <5.16 mg/dL (0.57-2.63)
[2022-10-18 10:27] LABS: Gamma Globulin 0.91 d/dL (0.70-1.50)
== END | disposition home or self-care (01) ==
LOC: LABWHC1 12:46
PROVIDERS: ATTEND Internal Medicine
DX: I50.22 Chronic systolic (congestive) heart failure (principal); I48.19 Other persistent atrial fibrillation; I25.10 Atherosclerotic heart disease of native coronary artery without angina pectoris; E78.2 Mixed hyperlipidemia; I10 Essential (primary) hypertension
CPT/HCPCS: 36415; 83883; 84156; 84165